=== PATIENT | male | born 1960 | race Caucasian/White ===

== ENCOUNTER 2016-04-24 13:04 | Emergency (ER) | payer BC, OTHER ==
[~2016-04-24] VITALS: Ht 177.8 cm; Wt 108.9 kg
[~2016-04-24 13:04] MED LIST: /HCTZ25TA PO; AMLO5TAB2 PO; ASPI81TA85 PO; BYST10TA PO; CINN500C9 PO; FISH1000 PO; GLUC5TAB3 PO; HUMA100I SC; LEVO750T PO; LORTTAB8 PO; MULTTAB4 PO; PANT40TA2 PO; SENO8.6T9 PO; VIT250TA PO; ZEST2.5T3 PO
[2016-04-24 14:26] LABS: BASO % 0.2 % (0.0-1.0); EOS # 0.1 K/mm3 (0.0-0.50); EOS % 0.8 % (0.0-3.0); LARGE UNSTAINED CELL # 0.2 K/mm3 (0.0-0.4); LARGE UNSTAINED CELL % 1.8 % (0.0-4.0); LYMPH % 21.4 % (24.0-44.0); MEAN CORPUSCULAR HEMOGLOBIN 29.7 pg (27.0-33.0); MEAN CORPUSCULAR HGB CONC 34.8 g/dl (32.0-36.5); MEAN CORPUSCULAR VOLUME 85.2 fl (80.0-96.0); MONO # 0.6 K/mm3 (0.0-0.8); MONO % 6.3 % (0.0-5.0); NEUTROPHILS # 6.3 K/mm3 (1.8-7.7); NEUTROPHILS % 69.6 % (36.0-66.0); PLATELET COUNT, AUTOMATED 203 k/mm3 (150-450); RED CELL DISTRIBUTION WIDTH 11.8 % (11.5-14.5); WHITE BLOOD COUNT 9.1 K/mm3 (4.0-10.0)
[2016-04-24 14:45] LABS: ERYTHROCYTE SEDIMENTATION RATE 41 mm/hr (0-20)
[2016-04-24 14:49] LABS: ANION GAP 13 MEQ/L (8-16); BLOOD UREA NITROGEN 11 MG/DL (7-18); CALCIUM LEVEL 8.9 MG/DL (8.5-10.1); CARBON DIOXIDE LEVEL 26 MEQ/L (21-32); CHLORIDE LEVEL 97 MEQ/L (98-107); CREATININE FOR GFR 1.05 MG/DL (0.70-1.30); GLOMERULAR FILTRATION RATE > 60.0 (>56); GLUCOSE, FASTING 308 MG/DL (70-105); POTASSIUM SERUM 3.6 MEQ/L (3.5-5.1); SODIUM LEVEL 136 MEQ/L (136-145)
[2016-04-24] MEDS ORDERED: ISOVUE-370 76% 100ML VIAL (Q9967) As Ordered ONE (14:53)
--- NOTE | 2016-04-24 15:29 | REP ---
CT study of the pelvis with IV but without oral contrast: History: Possible rectal abscess. Comparison CT abdomen and pelvis study is from February 09, 2012. CT contrast dose: 100 ml of Isovue 370 is administered intravenously by auto injector. CT findings: There is a small umbilical hernia transmitting a small quantity of abdominal fat again noted. No other abdominal wall defect is seen. There is left colonic diverticulosis without CT evidence of diverticulitis. A normal appendix is seen. Small and large intestinal bowel loops included in the imaging field of view are otherwise unremarkable. The urinary bladder is mildly distended at the time of this scan. There is a peripherally enhancing low density fluid collection, irregular in shape, in the midline extending somewhat to the left of midline just posterior to the anal canal in the peroneal region consistent with a perianal abscess. This measures 2.3 cm in greatest medial to lateral dimension by 1.3 cm cranial to caudal. There is one normal-sized lymph node in the perirectal fat. Seminal vesicles and prostate are unremarkable. No bony destructive lesion is seen. There is a small benign bone island in the left first sacral segment. Impression: Small perianal abscess seen, 1.3 x 2.3 cm. A small umbilical hernia transmitting abdominal fat. Otherwise unremarkable. Signed by Lucas Way MD 04/24/2016 05:39 P
[2016-04-24] MEDS ORDERED: AUGM875T27 PO (15:44)
[2016-04-24] MEDS ORDERED: ULTR50TA PO (15:44)
[2016-04-24 15:45] VITALS: BP 136/78
== END 2016-04-24 15:55 | disposition home or self-care (01) ==
LOC: M ED 14:58
DX: K61.0 Anal abscess (principal); K42.9 Umbilical hernia without obstruction or gangrene; I10 Essential (primary) hypertension; E66.9 Obesity, unspecified; Z79.899 Other long term (current) drug therapy
CPT/HCPCS: 36415; 72193; 80048; 85025; 85652; 86140; 99283; Q9967

== ENCOUNTER 2016-06-08 12:24 | Day surgery (SDC) | payer BC, OTHER ==
[~2016-06-08] VITALS: Ht 177.8 cm; Wt 108.9 kg
[~2016-06-08 12:24] MED LIST changes: +AUGM875T27 PO; +ULTR50TA PO
[2016-06-08] MEDS ORDERED: NS 1,000 ML IV ONE (14:30)
[2016-06-08] MEDS ORDERED: MORPHINE 4 MG/ML 1ML SYRINGE IV ONE (14:45)
[2016-06-08] MEDS ORDERED: ONDANSETRON 4MG/2ML VIAL (J2405) IV ONE (14:45)
[2016-06-08] MEDS ORDERED: VANCOMYCIN HCL 1,000 MG, VIAL MATE ADAPTER 1 EACH in D5W 250 ML IV ONE (15:00)
[2016-06-08 15:29] LABS: BASO % 0.4 % (0.0-1.0); EOS % 0.5 % (0.0-3.0); LARGE UNSTAINED CELL # 0.3 K/mm3 (0.0-0.4); LARGE UNSTAINED CELL % 4.2 % (0.0-4.0); LYMPH # 1.6 K/mm3 (1.5-4.5); LYMPH % 18.1 % (24.0-44.0); MEAN CORPUSCULAR HEMOGLOBIN 30.3 pg (27.0-33.0); MEAN CORPUSCULAR HGB CONC 34.9 g/dl (32.0-36.5); MEAN CORPUSCULAR VOLUME 86.8 fl (80.0-96.0); MONO # 0.7 K/mm3 (0.0-0.8); MONO % 9.5 % (0.0-5.0); NEUTROPHILS # 4.8 K/mm3 (1.8-7.7); NEUTROPHILS % 67.3 % (36.0-66.0); PLATELET COUNT, AUTOMATED 161 k/mm3 (150-450); RED CELL DISTRIBUTION WIDTH 12.3 % (11.5-14.5); WHITE BLOOD COUNT 7.2 K/mm3 (4.0-10.0)
[2016-06-08] MEDS ORDERED: MIDAZOLAM INJ 2 MG/2 ML VIAL (J2250) As Ordered ONE (15:36)
[2016-06-08] MEDS ORDERED: fentaNYL 100 MCG/2 ML INJECTION (J3010) As Ordered ONE (15:36)
[2016-06-08] MEDS ORDERED: FISH1000 PO (15:47)
[2016-06-08] MEDS ORDERED: HYDR25TAB PO (15:47)
[2016-06-08] MEDS ORDERED: AUGM875T27 PO (15:47)
[2016-06-08] MEDS ORDERED: PANT40TA2 PO (15:47)
[2016-06-08] MEDS ORDERED: ASCO10003 PO (15:47)
[2016-06-08] MEDS ORDERED: BYST10TA2 PO (15:47)
[2016-06-08] MEDS ORDERED: AMLO5TAB2 PO (15:47)
[2016-06-08] MEDS ORDERED: ASPI1TAB PO (15:47)
[2016-06-08] MEDS ORDERED: CINN500C9 PO (15:47)
[2016-06-08] MEDS ORDERED: HYDR12.55 PO (15:49)
[2016-06-08 15:57] LABS: ANION GAP 7 MEQ/L (8-16); BLOOD UREA NITROGEN 12 MG/DL (7-18); CALCIUM LEVEL 8.4 MG/DL (8.5-10.1); CARBON DIOXIDE LEVEL 28 MEQ/L (21-32); CHLORIDE LEVEL 99 MEQ/L (98-107); GLOMERULAR FILTRATION RATE > 60.0 (>56); GLUCOSE, FASTING 287 MG/DL (70-105); POTASSIUM SERUM 3.7 MEQ/L (3.5-5.1); SODIUM LEVEL 134 MEQ/L (136-145)
[2016-06-08] MEDS ORDERED: BUPIVACAINE/EPIN 0.25% 30 ML VIAL As Ordered ONE (16:15)
[2016-06-08] MEDS ORDERED: LIDOCAINE 2% INJ 100 MG/5 ML SDV (FOR ANES.) As Ordered ONE (16:28)
[2016-06-08] MEDS ORDERED: PROPOFOL 200 MG/20 ML VIAL As Ordered ONE (16:28)
[2016-06-08] MEDS ORDERED: fentaNYL 100 MCG/2 ML INJECTION (J3010) IV PRN (17:00)
[2016-06-08] MEDS ORDERED: ONDANSETRON 4MG/2ML VIAL (J2405) IV PRN (17:00)
[2016-06-08] MEDS ORDERED: LR 1,000 ML IV SCH (17:00)
[2016-06-08] MEDS ORDERED: IBUPROFEN 600 MG TAB PO PRN (17:00)
[2016-06-08] MEDS ORDERED: PERCOCET 5MG/325MG TAB PO PRN (17:00)
[2016-06-08] MEDS ORDERED: METOCLOPRAMIDE INJ 10MG/2ML VIAL (J2765) IV PRN (17:00)
[2016-06-08 17:30] VITALS: BP 166/91
[2016-06-08 18:00] VITALS: BP 132/80
[2016-06-08 18:30] VITALS: BP 134/70
[2016-06-08 19:45] VITALS: BP 132/80
[2016-06-08 21:10] VITALS: BP 139/86
--- NOTE | 2016-06-09 05:35 | HPE ---
DATE OF ADMISSION: 06/08/2016 CHIEF COMPLAINT: Perianal abscess. HISTORY OF PRESENT ILLNESS: The patient is a 55-year-old male who has a history of a perianal abscess in the past which was drained by Dr. Mulligan once a few years ago. This past April he had another recurrence. He had a CAT scan done which confirmed that there is an abscess there. This time he was just treated with antibiotics. He has seen Dr. Gordon in the office for this in the past few weeks who again recommended that he does not need any urgent surgical intervention and to call if there are any problems. He called on Thursday and was started on some antibiotics. However, over the past 48 hours it has gotten persistently more painful with more tender to palpation. Therefore he came into the emergency room (ER) this evening to be evaluated. No active drainage currently. He has only had this drained one time in the past. No recent trauma to the area. No recent trauma to the area. No problems with bowel movements. No fever sweats or chills. No nausea or vomiting. PAST MEDICAL HISTORY: Positive for: 1. Sleep apnea. 2. Hypertension. 3. Gastroesophageal reflux disease (GERD). PAST SURGICAL HISTORY: Incision and drainage (I and D) of perianal abscess. ALLERGIES: None. HOME MEDICATIONS: Please see medical records. SOCIAL HISTORY: Denies drug, alcohol, tobacco abuse. FAMILY HISTORY: Noncontributory. REVIEW OF SYSTEMS: Per positives as stated in the history of present illness (HPI). PHYSICAL EXAMINATION: GENERAL: Awake, alert and oriented times three. No acute stress. VITAL SIGNS: Temperature 99.2, pulse 67, respirations 18, blood pressure 153/92, pulse oximetry 95% on room air. HEENT: Pupils equal, round, react to light and accommodation. HEART: S1, S2, regular rhythm. LUNGS: Clear to auscultation bilaterally . ABDOMEN: Soft, nontender, nondistended. Bowel sounds positive. EXTREMITIES: No clubbing, cyanosis or edema. RECTAL EXAM: There is about a 2 x 3 cm perianal abscess just to the left of the midline. No signs of recent drainage and no active drainage currently. There is however fluctuance overlying the area and a lot of erythema and tenderness to touch. LABORATORY DATA: White count 7.2, hemoglobin 15. ASSESSMENT/PLAN: The patient is a 55-year-old male with a perianal abscess. Recommendation is for incision and drainage in the operating room due to tenderness and location. The risks and benefits of the procedure not limited to but including bleeding, infection, need for further surgery were discussed in detail with the patient. Informed consent was obtained and the procedure was planned. Postoperatively he will be discharged home to follow up me in the office as needed.
--- NOTE | 2016-06-09 08:12 | RO ---
DATE OF PROCEDURE: 06/08/2016 PREOPERATIVE DIAGNOSIS: Perianal abscess. POSTOPERATIVE DIAGNOSIS: Perianal abscess. PROCEDURE: Incision and drainage of perianal abscess. SURGEON: Dr. Mitchell Arnold. PILE DRIVING NOZZLEMAN: None. ANESTHESIA: IV sedation with 10 mL of 1% lidocaine with epi local. COMPLICATIONS: None. INDICATIONS FOR PROCEDURE: The patient is a 55-year-old male who presents with a history of perianal abscess that he has had for many years. He has had it drained in the past by Dr. Mulligan. He has recently had a recurrence in April with positive CT findings that was treated with antibiotics. He came back again last week and Dr. Gordon gave him some antibiotics to take on Thursday. However, it continued to be painful. No active drainage at home, so he came in today for evaluation. The recommendation was to proceed with incision and drainage. Risks include bleeding, infection and possible need for repeat surgery were discussed in detail with the patient and informed consent was obtained and the procedure planned. DESCRIPTION OF PROCEDURE: The patient brought back to operating room three and was placed in prone position. Perianal area was sterilely prepped and draped with Betadine. Time-out was done to confirm proper patient and proper procedure. Following that, lidocaine was injected into the skin and subcutaneous tissue surrounding and overlying the abscess. Next, a 10-blade scalpel was used to make a 1 cm incision right in the center of the abscess. A large amount of purulent drainage was then aspirated out with suction. The wound cavity was then irrigated with saline. The cavity was then probed to be about 4 cm deep. The cavity was then packed with quarter inch iodoform packing, covered with sterile gauze and tape, thus ending the procedure. The patient was then awakened from anesthesia and sent to the post-anesthesia care unit in stable condition. TABBY
== END 2016-06-08 21:40 | disposition home or self-care (01) ==
LOC: M ED 13:48 → M SDC 15:40 → M PED 17:30 → M SDC 21:40
PROVIDERS: ATTEND Surgery
DX: K61.0 Anal abscess (principal); G47.33 Obstructive sleep apnea (adult) (pediatric); I10 Essential (primary) hypertension; K21.9 Gastro-esophageal reflux disease without esophagitis; Z79.899 Other long term (current) drug therapy
CPT/HCPCS: 36415; 46040; 80048; 85025; 86140; 87040; 96374; 96375; 99284; J2250; J2405; J3010; J3370

== ENCOUNTER 2016-10-11 21:07 | Observation (INO) | payer BC, OTHER ==
[~2016-10-11] VITALS: Ht 177.8 cm; Wt 109.1 kg
[~2016-10-11 21:07] MED LIST changes: +ASCO10003 PO; +ASPI1TAB PO; -AUGM875T27 PO; +AUGM875T28 PO; +BYST10TA2 PO; +HYDR12.55 PO; +HYDR25TAB PO; -ULTR50TA PO; +ULTR50TA8 PO
[2016-10-12] MEDS ORDERED: NS 500 ML IV ONE
[2016-10-12] MEDS ORDERED: HYDROmorphone HCL 1 MG/ML SYRINGE (J1170) IV ONE
[2016-10-12 01:10] LABS: BASO % 0.3 % (0.0-1.0); EOS % 0.6 % (0.0-3.0); LARGE UNSTAINED CELL # 0.2 K/mm3 (0.0-0.4); LARGE UNSTAINED CELL % 2.4 % (0.0-4.0); LYMPH # 1.4 K/mm3 (1.5-4.5); LYMPH % 15.6 % (24.0-44.0); MEAN CORPUSCULAR HEMOGLOBIN 30.6 pg (27.0-33.0); MEAN CORPUSCULAR HGB CONC 35.3 g/dl (32.0-36.5); MEAN CORPUSCULAR VOLUME 86.6 fl (80.0-96.0); MONO # 0.6 K/mm3 (0.0-0.8); MONO % 7.1 % (0.0-5.0); NEUTROPHILS # 6.6 K/mm3 (1.8-7.7); PLATELET COUNT, AUTOMATED 209 k/mm3 (150-450); RED CELL DISTRIBUTION WIDTH 12.1 % (11.5-14.5); WHITE BLOOD COUNT 8.9 K/mm3 (4.0-10.0)
[2016-10-12 01:22] LABS: INR 0.98
[2016-10-12 01:32] LABS: ANION GAP 11 MEQ/L (8-16); BLOOD UREA NITROGEN 14 MG/DL (7-18); CARBON DIOXIDE LEVEL 28 MEQ/L (21-32); CHLORIDE LEVEL 99 MEQ/L (98-107); CREATININE FOR GFR 1.08 MG/DL (0.70-1.30); GLOMERULAR FILTRATION RATE > 60.0 (>56); GLUCOSE, FASTING 337 MG/DL (70-105); POTASSIUM SERUM 3.8 MEQ/L (3.5-5.1); SODIUM LEVEL 138 MEQ/L (136-145)
[2016-10-12] MEDS ORDERED: ISOVUE-370 76% 100ML VIAL (Q9967) As Ordered ONE (01:55)
--- NOTE | 2016-10-12 03:20 | REPUSA ---
CLINICAL HISTORY: Abdominal pain. TECHNIQUE: Multiple axial, sagittal and coronal CT images were obtained through the abdomen and pelvi s after administration of intravenous contrast material. COMMENTS: 5.3 x 3.7 cm multi-loculated perianal abscess formation. Abscess extends to the intersphincteric space. Surrounding inflammatory fat stranding. Mildly enlarged bilateral inguinal lymph nodes with the largest measuring 1.3 cm probably reactive. The liver is moderately enlarged with decreased attenuation without mass or defect. There is no intra or extrahepatic biliary ductal dilatation. The spleen is mildly enlarged. The gallbladder is within normal limits. The pancreas is of normal contour and attenuation characteristics. There is no evidenc e of adrenal mass. Both kidneys demonstrate prompt and equal nephrograms. The kidneys are normal in size, shape and conf iguration. There is no evidence of renal or ureteral mass. No renal or ureteral calculi are identifie d. There is no hydroureter or hydronephrosis. No evidence for appendicitis. There is no bowel wall thickening. No evidence for small or large gaudencio l obstruction. There is no evidence of abdominal ascites or lymphadenopathy. There is no evidence of intrinsic or extrinsic bladder mass. There is no pelvic ascites or lymphadeno radames. Images of the lung bases show no evidence of pleural or parenchymal mass. There are no pleural effusi ons. The bony structures are free of lytic or blastic lesions. Multilevel degenerative changes are seen in volving the thoracolumbar spine. Scattered calcifications are seen involving the aorta and major bran ches compatible with atherosclerosis. IMPRESSION: Perianal abscess. Reactive inguinal lymph nodes. Hepatomegaly with fatty liver infiltration. Thank you for your kind referral of this patient.
[2016-10-12] MEDS ORDERED: AMPICILLIN SOD/SULBACTAM SOD 3 GM in D5W MINI-BAG PLUS 100 ML IV ONE (03:30)
[2016-10-12] MEDS ORDERED: metroNIDAZOLE 500 MG in APPROPRIATE DILUENT 1 EA IV ONE (03:30)
[2016-10-12] MEDS: MORPHINE 2 MG/ML 1ML SYRINGE IV PRN ×2 (04:39→09:11)
[2016-10-12] MEDS: ONDANSETRON 4MG/2ML VIAL (J2405) IV PRN ×2 (04:40→09:10)
[2016-10-12 06:00] VITALS: BP 157/77
[2016-10-12] MEDS ORDERED: LIDOCAINE 2% INJ 100 MG/5 ML SDV (FOR ANES.) As Ordered ONE (09:56)
[2016-10-12] MEDS ORDERED: fentaNYL 100 MCG/2 ML INJECTION (J3010) As Ordered ONE (09:56)
[2016-10-12] MEDS ORDERED: MIDAZOLAM INJ 2 MG/2 ML VIAL (J2250) As Ordered ONE (09:56)
[2016-10-12] MEDS ORDERED: PROPOFOL 200 MG/20 ML VIAL As Ordered ONE (09:56)
[2016-10-12] MEDS ORDERED: HumaLOG INSULIN (NovoLOG) PER UNIT As Ordered ONE (10:14)
[2016-10-12] MEDS ORDERED: LIDOCAINE W/EPINEPHRINE 1% 20ML VIAL As Ordered ONE (10:27)
[2016-10-12] MEDS ORDERED: HumaLOG INSULIN (NovoLOG) PER UNIT SC ONE (10:30)
[2016-10-12] MEDS ORDERED: NORC1TAB4 PO (10:47)
[2016-10-12] MEDS ORDERED: BACT800T5 PO (10:47)
[2016-10-12] MEDS ORDERED: LR 1,000 ML IV SCH (11:00)
[2016-10-12] MEDS ORDERED: ONDANSETRON 4MG/2ML VIAL (J2405) IV PRN (11:00)
[2016-10-12] MEDS ORDERED: METOCLOPRAMIDE INJ 10MG/2ML VIAL (J2765) IV PRN (11:00)
[2016-10-12] MEDS ORDERED: fentaNYL 100 MCG/2 ML INJECTION (J3010) IV PRN (11:00)
[2016-10-12] MEDS ORDERED: PERCOCET 5MG/325MG TAB PO PRN ×2 (11:00→13:00)
[2016-10-12 12:21] VITALS: BP 193/95
[2016-10-12] MEDS ORDERED: amLODIPine 5 MG TAB PO ONE (12:45)
[2016-10-12] MEDS ORDERED: hydroCHLOROthiazide 12.5 MG CAPSULE PO ONE (12:45)
[2016-10-12 13:05] VITALS: BP 193/95
--- NOTE | 2016-10-12 13:13 | HPE ---
DATE OF ADMISSION: 10/11/2016 CHIEF COMPLAINT: Rectal pain. HISTORY OF PRESENT ILLNESS: The patient is 55-year-old male who had a perirectal abscess drained by myself on June 08 of this year. He presents with similar findings of perirectal pain that started about 4 days ago. No drainage in his perineal area, just the pain with bowel movements and with sitting. No fevers or chills. No nausea or vomiting. No diarrhea or constipation. He has been having bowel movements without any blood or mucus or purulent fluid in it, but due to the pain and pressure that he had, he assumed he was having a similar findings from before. In the ER he had a CAT scan completed which did confirm a roughly 5 x 4 cm abscess. The ER doc was also able to palpate it on physical exam posteriorly. Therefore, I was called to admit. Currently he denies any trauma to the area. No recent travel. No changes in diet for bowel movements. The only changes is this pain that he has. PAST MEDICAL HISTORY: Sleep apnea. Hypertension. Gastroesophageal reflux disease (GERD). PAST SURGICAL HISTORY: Incision and drainage of perianal abscess times two. ALLERGIES: None. HOME MEDICATIONS: Please see med rec. SOCIAL HISTORY: His denies drug, alcohol, tobacco abuse. FAMILY HISTORY: Noncontributory. REVIEW OF SYSTEMS: Pertinent positives and negatives as started in the history of present illness. PHYSICAL EXAMINATION GENERAL: Patient is alert and oriented times three. No acute distress. VITALS: Temperature 98, pulse 78, respirations 18, blood pressure 193/95, pulse ox 98% on room air. HEENT: Pupils equally round and reactive to light and accommodation. HEART: S1-S2 regular rate and rhythm. LUNGS: Clear to auscultation bilaterally. ABDOMEN: Soft, nontender, nondistended. RECTAL EXAM: There is no visible abscesses, no external hemorrhoids, but he does have a palpable lump posteriorly in the midline that is very tender to touch. No signs of erythema or drainage. EXTREMITIES: No clubbing, cyanosis or edema. LABORATORIES: White count 8.9, hemoglobin 15.6, platelets 209, sodium 138, potassium 3.8, creatinine 1.08. IMAGING: CT abdomen and pelvis shows a 5.3 x 3.7 cm multiloculated perianal abscess extending into the intersphincteric space with surrounding inflammatory fat stranding. There is also mildly enlarged bilateral inguinal lymph nodes up to 1.3 cm that are likely reactive to this. ASSESSMENT/PLAN: The patient is a 55-year-old male with rectal pain and a perirectal abscess. Recommendation at this time is to proceed with incision and drainage in the OR. Risks and benefits of the procedure not limited to, but including bleeding, infection, damage to surrounding structures, and need for further surgery were discussed in detail with the patient. Informed consent was obtained and procedure was planned for first thing this morning. Postoperatively he will be kept on antibiotics. He will be discharged home on antibiotics with some pain meds and he is already aware of how to do the packing changes and dressing changes himself from his previous of procedure. Once he awakes from anesthesia and is stable, tolerating diet. He will be discharged home this afternoon.
--- NOTE | 2016-10-12 13:19 | RO ---
DATE OF PROCEDURE: 10/12/2016 PREOPERATIVE DIAGNOSIS: Perirectal abscess. POSTOPERATIVE DIAGNOSIS: Perirectal abscess. PROCEDURE: Incision and drainage of perirectal abscess. SURGEON: Mitchell Arnold DO AUTO MOTOR MECHANIC: None. ANESTHESIA: IV sedation with 5 mL of local. COMPLICATIONS: None. ESTIMATED BLOOD LOSS: 10 mL. INDICATIONS FOR PROCEDURE: The patient 55-year-old male with a history of multiple perirectal abscesses with two previous drainages who presents with a four day history of rectal pain and a confirmed abscess on physical exam as well as CAT scan. Recommendation was to take him to the operating room for incision and drainage. Risks and benefits of the procedure not limited to but including bleeding, infection, need for further surgery and damage to surrounding structures, were discussed in detail with the patient . Informed consent was obtained and procedure was planned. DESCRIPTION OF PROCEDURE: The patient brought back to operating room three, placed in left lateral decubitus position. Next, the perianal area was sterilely prepped and draped with Betadine. Following that, a time out was done to confirm proper patient and proper procedure. Next, 5 mL of lidocaine was injected into the skin, subcutaneous tissue near the posterior anal area. Once that was completed the needle was used to aspirate and identify the exact location of the abscess. Once that was completed, a 10 blade scalpel was used to make an 8 mm incision through the skin and into the abscess. Once that was done, the abscess cavity was aspirated. All the purulent drainage was removed. It was then irrigated with another 10 mL of lidocaine. Once that it was completed, it was packed with half inch iodoform packing, covered with 4x4 gauze, thus ending procedure. The patient tolerated procedure well and was sent to the postanesthesia care unit (PACU) in stable condition.
[2016-10-12] MEDS ORDERED: NEBIVOLOL 5 MG TAB (BYSTOLIC) PO SCH (13:30)
[2016-10-12 14:21] VITALS: BP 163/81
== END 2016-10-12 16:35 | disposition home or self-care (01) ==
LOC: M ED 21:07 → M ED INP 21:08 → M MS5PR 10-12 05:06
PROVIDERS: ADMIT Surgery; ATTEND Surgery
DX: K61.1 Rectal abscess (principal); I10 Essential (primary) hypertension; E11.9 Type 2 diabetes mellitus without complications; K21.9 Gastro-esophageal reflux disease without esophagitis; G47.30 Sleep apnea, unspecified; F32.9 Major depressive disorder, single episode, unspecified; Z79.82 Long term (current) use of aspirin; Z79.899 Other long term (current) drug therapy
CPT/HCPCS: 46040; 74177; 80048; 85025; 85610; 85730; 96361; 96365; 96375; 96376; 99284; J1170; J2250; J2405; J3010; Q9967

== ENCOUNTER 2016-12-31 13:03 | Emergency (ER) | payer BC, OTHER ==
[~2016-12-31] VITALS: Ht 177.8 cm; Wt 114.5 kg
[~2016-12-31 13:03] MED LIST changes: +BACT800T5 PO; +NORC1TAB4 PO
[2016-12-31] MEDS ORDERED: MORPHINE 4 MG/ML 1ML SYRINGE IV ONE (16:15)
[2016-12-31] MEDS ORDERED: ONDANSETRON 4MG/2ML VIAL (J2405) IV ONE (16:15)
[2016-12-31] MEDS ORDERED: CLINDAMYCIN 900 MG in APPROPRIATE DILUENT 1 EA IV ONE (16:30)
[2016-12-31] MEDS ORDERED: IBUPROFEN 800 MG TAB PO ONE (16:45)
[2016-12-31 17:21] LABS: ALBUMIN 3.4 GM/DL (3.2-5.2); ALBUMIN/GLOBULIN RATIO 0.94 (1.00-1.93); ALKALINE PHOSPHATASE 102 U/L (45-117); ALT/SGPT 36 U/L (12-78); ANION GAP 8 MEQ/L (8-16); AST/SGOT 11 U/L (7-37); BASO % 0.2 % (0.0-1.0); BILIRUBIN,TOTAL 1.4 MG/DL (0.2-1.0); BLOOD UREA NITROGEN 8 MG/DL (7-18); CALCIUM LEVEL 8.8 MG/DL (8.5-10.1); CARBON DIOXIDE LEVEL 29 MEQ/L (21-32); CHLORIDE LEVEL 95 MEQ/L (98-107); CREATININE FOR GFR 1.04 MG/DL (0.70-1.30); GLOMERULAR FILTRATION RATE > 60.0 (>56); GLUCOSE, FASTING 293 MG/DL (70-105); IMMATURE GRANULOCYTE % 0.4 % (0-0); LYMPH # 1.3 10^3/uL (1.5-4.5); LYMPH % 10.8 % (24.0-44.0); MEAN CORPUSCULAR HEMOGLOBIN 29.2 pg (27.0-33.0); MEAN CORPUSCULAR HGB CONC 35.5 g/dl (32.0-36.5); MEAN CORPUSCULAR VOLUME 82.4 fl (80.0-96.0); MONO # 1.3 10^3/uL (0.0-0.8); NEUTROPHILS # 9.5 10^3/uL (1.8-7.7); NEUTROPHILS % 77.6 % (36.0-66.0); PLATELET COUNT, AUTOMATED 190 10^3/uL (150-450); POTASSIUM SERUM 3.7 MEQ/L (3.5-5.1); RED CELL DISTRIBUTION WIDTH 11.4 % (11.5-14.5); SODIUM LEVEL 132 MEQ/L (136-145); WHITE BLOOD COUNT 12.2 10^3/uL (4.0-10.0)
[2016-12-31] MEDS ORDERED: ISOVUE-370 76% 100ML VIAL (Q9967) As Ordered ONE (17:22)
--- NOTE | 2016-12-31 18:03 | REP ---
Clinical: Right medial gluteal pain with history of perirectal abscess. Technique: Axial contrast enhanced images of the pelvis using 100 ml Isovue 370 intravenous contrast material with coronal and sagittal re-formations. Comparison: 10/12/2016. Findings: A heterogeneous, multiloculated perianal/perirectal abscess is identified measuring approximately 5.4 x 4.0 x 5.3 cm and is essentially unchanged when compared to prior examination (images 60 - 80). Surrounding inflammatory changes in the adjacent perirectal fat is identified without significant adenopathy. Visualized portions of the small and large bowel are otherwise unremarkable. Sigmoid diverticula noted without acute diverticulitis. Further evaluation the pelvis demonstrates normal bladder and age appropriate prostate/seminal vesicles. No ascites. Osseous structures are intact. Surrounding musculature including gluteal muscles are normal. Impression: 1. Heterogeneous multiloculated perianal/perirectal abscess measuring roughly 5.4 x 4.0 x 5.3 cm and essentially unchanged compared to 10/12/2016. 2. Sigmoid diverticula without acute diverticulitis. Signed by Ricki Pike MD 12/31/2016 05:54 P
[2016-12-31] MEDS ORDERED: LIDOCAINE W/EPINEPHRINE 1% 20ML VIAL SC ONE (19:45)
[2016-12-31] MEDS ORDERED: AUGM875T28 PO (20:12)
[2016-12-31 20:23] VITALS: BP 122/71
--- NOTE | 2017-01-01 06:17 | RO ---
DATE OF PROCEDURE: 12/31/2016 PREOPERATIVE DIAGNOSIS: Perirectal abscess (recurrent). POSTOPERATIVE DIAGNOSIS: Perirectal abscess (recurrent). PROCEDURE: Incision and drainage of perirectal abscess. SURGEON: Salvador Gordon MD [facility]: ANESTHESIA: Local lidocaine with epinephrine. BRIEF PROCEDURE SUMMARY: The patient was seen in the emergency room, had been examined and CAT scan reviewed and revealed a multiloculated abscess that was on the posterior aspect of the rectum, but seemed to curve around both at the 3-o'clock to almost 9-o'clock position. This was prepped and draped in usual sterile fashion. Local lidocaine mixed with epinephrine was infiltrated into this area and using an 18-gauge as a finder needle placed into the abscess cavity. Then, this was also placed into the 3-o'clock and the 9-o'clock position and I obtained more abscess material. All this was quite liquid and a very thinned out abscess. In any case, a #15 blade was used to create an incision and using blunt dissection through the subcutaneous tissue I entered the abscess pocket, which was relatively deep and once this was entered a great deal of abscess was drained, and palpating both at 3-o'clock and 9-o'clock position, I was able to express additional abscess fluid. A 1/4 inch and gauze was placed into the site and then a dry sterile dressing over the top of this. The patient was discharged home with instructions to followup with me in 2 weeks, remove the dressing tomorrow morning and he was given an antibiotic prescription by the emergency room physician commercial assistant (PA) and off work until next Thursday.
== END 2016-12-31 20:26 | disposition home or self-care (01) ==
LOC: M ED 13:03
DX: K61.1 Rectal abscess (principal); I10 Essential (primary) hypertension; E11.9 Type 2 diabetes mellitus without complications; K57.30 Diverticulosis of large intestine without perforation or abscess without bleeding; G47.30 Sleep apnea, unspecified
CPT/HCPCS: 10061; 72193; 80053; 83605; 85025; 87040; 87070; 87077; 87186; 96374; 96375; 99284; J2405; Q9967

== ENCOUNTER 2018-08-07 18:55 | Emergency (ER) | payer BC, OTHER ==
[~2018-08-07] VITALS: Ht 177.8 cm; Wt 100.0 kg
[~2018-08-07 18:55] MED LIST changes: -/HCTZ25TA PO; +AMLO5TAB6 PO; -ASPI1TAB PO; +ASPI81TA26 PO; +HYDR-3644 PO; -NORC1TAB4 PO; +NORC1TAB7 PO; +PANT40TA3 PO
[2018-08-07] MEDS ORDERED: LIDOCAINE W/EPINEPHRINE 1% 20ML VIAL SC ONE (20:00)
[2018-08-07 20:20] LABS: BASO % 0.4 % (0.0-1.0); EOS # 0.1 10^3/uL (0.0-0.50); EOS % 0.9 % (0.0-3.0); HEMATOCRIT 43.7 % (42.0-52.0); HEMOGLOBIN 15.6 g/dl (13.5-17.5); LYMPH # 2.7 10^3/uL (1.5-4.5); LYMPH % 25.6 % (24.0-44.0); MEAN CORPUSCULAR HEMOGLOBIN 30.2 pg (27.0-33.0); MEAN CORPUSCULAR HGB CONC 35.7 g/dl (32.0-36.5); MEAN CORPUSCULAR VOLUME 84.5 fl (80.0-96.0); NEUTROPHILS # 6.5 10^3/uL (1.8-7.7); NEUTROPHILS % 62.8 % (36.0-66.0); PLATELET COUNT, AUTOMATED 196 10^3/uL (150-450); RED BLOOD COUNT 5.17 10^6/uL (4.30-6.10); WHITE BLOOD COUNT 10.4 10^3/uL (4.0-10.0)
[2018-08-07] MEDS ORDERED: ISOVUE-370 76% 100ML VIAL (Q9967) As Ordered ONE (20:32)
--- NOTE | 2018-08-07 20:55 | REP ---
Clinical: History of perirectal abscess with pain. Technique: Axial contrast enhanced images of the pelvis using 100 ml Isovue 370 intravenous contrast material with coronal and sagittal re-formations. Comparison: 12/31/2016. Findings: Phlegmonous changes in the left perirectal/ischiorectal fossa with surrounding inflammatory changes and small pockets of fluid measures approximately 6.0 x 2.4 x 5.1 cm (images 60-82). No discrete drainable pocket is identified at the time of examination. Visualized portions of the small and large bowel including terminal ileum and appendix are relatively normal. Scattered sigmoid diverticula noted without acute diverticulitis. Normal bladder and age appropriate prostate/seminal vesicles appreciated. No ascites. No free air. No significant adenopathy. 2.5 cm fat containing periumbilical hernia identified. Osseous structures intact without focal abnormalities. Impression: 1. Perirectal inflammatory changes in the left ischiorectal space demonstrates phlegmonous change with small amounts of fluid consistent with forming perirectal abscess. 2. 2.5 cm fat containing periumbilical hernia. 3. Scattered sigmoid diverticula. Electronically Signed by Ricki Pike MD 08/07/2018 08:47 P
[2018-08-07] MEDS ORDERED: MORPHINE 4 MG/ML 1ML VIAL/SYRINGE (J2270) IV ONE (21:45)
[2018-08-07 22:07] VITALS: BP 155/92
[2018-08-07] MEDS ORDERED: AUGMENTIN 875 MG TAB PO ONE (22:30)
[2018-08-07] MEDS ORDERED: NORCO 5/325MG TABLET (BULK FOR ED) PO ONE (22:30)
[2018-08-07] MEDS ORDERED: AUGM875T28 PO (22:32)
[2018-08-07] MEDS ORDERED: NORC1TAB7 PO (22:32)
[2018-08-07 23:34] LABS: ERYTHROCYTE SEDIMENTATION RATE 28 mm/hr (0-20)
--- NOTE | 2018-08-09 13:39 | ED PDOC ---
Post-Departure Follow-Up dr zafar and dr early faxed formal report of ct pelvis for fu Praneeth Tavares MD Aug 09, 2018 13:39
== END 2018-08-07 22:48 | disposition home or self-care (01) ==
LOC: M ED 18:55
DX: K61.1 Rectal abscess (principal); I10 Essential (primary) hypertension; K21.9 Gastro-esophageal reflux disease without esophagitis; Z79.899 Other long term (current) drug therapy; Z79.82 Long term (current) use of aspirin
CPT/HCPCS: 10060; 72193; 85025; 85652; 86140; 87070; 87077; 87186; 96374; 99284; J2270; Q9967

== ENCOUNTER 2019-04-26 11:58 | Emergency (ER) | payer BC, OTHER ==
[~2019-04-26] VITALS: Ht 177.8 cm; Wt 105.3 kg
[2019-04-26] MEDS ORDERED: cefTRIAXone SOD 1 GM in D5W MINI-BAG PLUS 50 ML IV ONE (12:30)
[2019-04-26] MEDS ORDERED: NS 1,000 ML IV SCH (12:30)
[2019-04-26 12:40] LABS: HEMATOCRIT 47.1 % (42.0-52.0); HEMOGLOBIN 16.6 g/dl (13.5-17.5); MEAN CORPUSCULAR HEMOGLOBIN 29.7 pg (27.0-33.0); MEAN CORPUSCULAR HGB CONC 35.2 g/dl (32.0-36.5); MEAN CORPUSCULAR VOLUME 84.3 fl (80.0-96.0); PLATELET COUNT, AUTOMATED 220 10^3/uL (150-450); RED BLOOD COUNT 5.59 10^6/uL (4.30-6.10); WHITE BLOOD COUNT 11.8 10^3/uL (4.0-10.0)
[2019-04-26] MEDS ORDERED: ACETAMINOPHEN 325 MG TAB PO ONE (12:45)
[2019-04-26 12:53] LABS: INR 1.1; PROTHROMBIN TIME 13.9 SECONDS (11.8-14.0)
[2019-04-26 12:59] LABS: BLOOD UREA NITROGEN 13 MG/DL (7-18); CALCIUM LEVEL 8.8 MG/DL (8.5-10.1); CARBON DIOXIDE LEVEL 30 MEQ/L (21-32); CHLORIDE LEVEL 97 MEQ/L (98-107); CREATININE FOR GFR 1.02 MG/DL (0.70-1.30); GLOMERULAR FILTRATION RATE > 60.0 (>56); GLUCOSE, FASTING 333 MG/DL (70-100); SODIUM LEVEL 133 MEQ/L (136-145)
[2019-04-26] MEDS ORDERED: ISOVUE-370 76% 100ML VIAL (Q9967) As Ordered ONE (13:06)
--- NOTE | 2019-04-26 14:11 | REP ---
CT PELVIS WITH IV CONTRAST: CT pelvis performed with intravenous administration of 100 mL Isovue 370. Sagittal and coronal reconstruction images are performed. Comparison is made with multiple prior exams, the most recent of which is 12/31/2016. As seen on several prior studies there is a left perianal abscess. Current measurements are 3.9 x 2.7 cm. There is adjacent streaky inflammatory change. No other fluid collection is seen in the pelvis. No free air is seen. There is extensive sigmoid diverticulosis without acute diverticulitis. Small umbilical hernia contains fat. Urinary bladder is mildly distended and appears grossly unremarkable. IMPRESSION: Left perianal abscess with current measurements 3.9 x 2.7 cm. Electronically Signed by Mitchell Alford MD 04/27/2019 09:10 A
[2019-04-26] MEDS ORDERED: NORC1TAB7 PO (14:29)
[2019-04-26] MEDS ORDERED: AUGM875T28 PO (14:29)
[2019-04-26 15:07] VITALS: BP 144/91
--- NOTE | 2019-04-28 14:13 | ED PDOC ---
Post-Departure Follow-Up randy mcmanus and nneka faxed formal report of ct abd/p for fu Praneeth Tavares MD Apr 28, 2019 14:13
== END 2019-04-26 15:05 | disposition home or self-care (01) ==
LOC: M ED 11:58
DX: K61.0 Anal abscess (principal); R50.9 Fever, unspecified; I10 Essential (primary) hypertension; K21.9 Gastro-esophageal reflux disease without esophagitis; Z79.82 Long term (current) use of aspirin; Z79.899 Other long term (current) drug therapy
CPT/HCPCS: 72193; 80048; 85027; 85610; 96361; 96365; 99284; J0696; Q9967

== ENCOUNTER → 2019-04-27 | Outpatient (CLI) | payer BC, OTHER ==
[~2019-04-27] MED LIST changes: +LIDOCAINE 1% MDV 20ML VIAL As Ordered ONE; +SODIUM BICARBONATE 8.4% INJ 50MEQ 50 ML VIAL As Ordered ONE
[2019-04-27 13:40] VITALS: BP 134/79
--- NOTE | 2019-04-27 16:31 | REP ---
CT-GUIDED PERIANAL ABSCESS DRAIN The procedure was performed under the direct supervision of Dr. Alford. Patient has a history of a 3.9 x 2.7 cm left perianal abscess seen on a previous CT scan performed on 04/26/2019. The risks and benefits of the procedure were explained to the patient and informed consent was obtained. The left perianal abscess was localized using CT guidance. The skin was prepped and draped in a sterile fashion. 1% lidocaine was used as a local anesthetic. Using CT guidance an 8-[place] Skater APDL catheter was inserted using trocar technique. 15 ml of beige/red colored fluid was withdrawn and sent to the lab for analysis. The abscess cavity was flushed with four 5 ml aliquots of sterile saline. The catheter was then removed. The patient tolerated the procedure well and there were no immediate complications. After the appropriate amount of monitored convalescence the patient was discharged from the department. Electronically Signed by MISAEL Junior 04/27/2019 04:20 P Electronically Signed by Mitchell Alford MD 04/27/2019 04:22 P
== END ==
LOC: M IRPRO 10:54
PROVIDERS: ATTEND Surgery
DX: K61.1 Rectal abscess (principal)

== ENCOUNTER → 2019-05-03 | Outpatient (CLI) | payer BC, OTHER ==
--- NOTE | 2019-05-03 11:26 | REP ---
Clinical: History of perirectal abscess. Technique: Axial noncontrast images of the pelvis with coronal and sagittal re-formations. Comparison: 04/26/2019. Findings: A small left perirectal abscess is again identified and essentially unchanged in size and configuration although evaluation is somewhat limited by the lack of intravenous contrast. Visualized portions of the small and large bowel without associated obstruction or acute inflammatory process. Normal terminal ileum, cecum and appendix identified in the right lower quadrant. Sigmoid diverticulosis noted without acute diverticulitis. Stable 3 cm fat containing periumbilical hernia again noted. No ascites. No free air. Normal bladder and age appropriate prostate/seminal vesicles identified. Osseous structures demonstrate stable degenerative changes. Impression: 1. Small left perirectal abscess again suggested and essentially unchanged although evaluation is somewhat limited by the lack of intravenous contrast enhancement. Electronically Signed by Ricki Pike MD 05/03/2019 11:17 A
[2019-05-03 12:35] VITALS: BP 165/96
--- NOTE | 2019-05-03 17:28 | REP ---
CT-GUIDED RECTAL ABSCESS DRAIN The procedure was performed under the direct supervision of . Patient has a history of A small left perirectal abscess seen on a previous CT scan performed earlier today. This abscess was previously drained on 04/27/2019. However, the abscess has returned and the patient is referred for re-drainage with catheter placement. The risks and benefits of the procedure were explained to the patient and informed consent was obtained. The perirectal abscess was localized using CT guidance. The skin was prepped and draped in a sterile fashion. 1% lidocaine was used as a local anesthetic. Using CT guidance an 8-[place] Skater APDL catheter was inserted using trocar technique. 20 ml of proteinaceous fluid was withdrawn and sent to lab for analysis. The abscess cavity was flushed with four 5 ml aliquots of sterile saline. The catheter was affixed to the skin and a sterile dressing was applied. The catheter was connected to a gravity drainage bag. The patient tolerated the procedure well and there were no immediate complications. After the appropriate amount of monitored convalescence the patient was discharged from the department. Electronically Signed by MISAEL Junior 05/03/2019 03:43 P Electronically Signed by Lucas Way MD 05/03/2019 05:19 P
== END ==
LOC: M RADPRO 10:39 → M RAD 10:39
PROVIDERS: ATTEND Surgery
DX: K61.1 Rectal abscess (principal)

== ENCOUNTER 2020-03-19 20:02 | Inpatient (IN) | payer BC, OTHER ==
[~2020-03-19] VITALS: Ht 177.8 cm; Wt 110.0 kg
[~2020-03-19 20:02] MED LIST changes: +AMLO1TAB24 PO; -AMLO5TAB6 PO; +HYDR-3490 PO; -HYDR25TAB PO; -LIDOCAINE 1% MDV 20ML VIAL As Ordered ONE; +PANT40TA29 PO; -PANT40TA3 PO; -SODIUM BICARBONATE 8.4% INJ 50MEQ 50 ML VIAL As Ordered ONE
[2020-03-19] MEDS ORDERED: LOSA50TA88 (20:15)
[2020-03-19] MEDS ORDERED: NS 1,000 ML IV SCH (20:51)
[2020-03-19] MEDS ORDERED: ACETAMINOPHEN 325 MG TAB PO ONE (21:00)
[2020-03-19] MEDS ORDERED: MORPHINE 4 MG/ML 1ML VIAL/SYRINGE (J2270) IV PRN (21:00)
[2020-03-19] MEDS ORDERED: ONDANSETRON 4MG/2ML VIAL IV ONE (21:00)
[2020-03-19 21:33] LABS: BASO % 0.2 % (0.0-1.0); EOS # 0.1 10^3/uL (0.0-0.5); EOS % 0.5 % (0.0-3.0); HEMATOCRIT 40.6 % (42.0-52.0); LYMPH # 1.4 10^3/uL (1.5-5.0); LYMPH % 12.2 % (24.0-44.0); MEAN CORPUSCULAR HGB CONC 34.5 g/dl (32.0-36.5); MEAN CORPUSCULAR VOLUME 84.1 fl (80.0-96.0); MONO # 1.2 10^3/uL (0.0-0.8); MONO % 10.6 % (0.0-5.0); NEUTROPHILS # 8.4 10^3/uL (1.5-8.5); NEUTROPHILS % 75.9 % (36.0-66.0); PLATELET COUNT, AUTOMATED 172 10^3/uL (150-450); RED BLOOD COUNT 4.83 10^6/uL (4.30-6.10)
[2020-03-19 21:34] LABS: WHITE BLOOD COUNT 11.1 10^3/uL (4.0-10.0)
[2020-03-19 21:43] LABS: INR 1.01; PROTHROMBIN TIME 13.5 SECONDS (12.5-14.3)
[2020-03-19 22:04] LABS: ALBUMIN 3.5 GM/DL (3.2-5.2); ALT/SGPT 27 U/L (12-78); BILIRUBIN,DIRECT 0.3 MG/DL (0.0-0.2); BLOOD UREA NITROGEN 14 MG/DL (7-18); CARBON DIOXIDE LEVEL 28 MEQ/L (21-32); CHLORIDE LEVEL 99 MEQ/L (98-107); CREATININE FOR GFR 0.97 MG/DL (0.70-1.30); GLOMERULAR FILTRATION RATE > 60.0 (>56); GLUCOSE, FASTING 253 MG/DL (70-100); LIPASE 73 U/L (73-393); SODIUM LEVEL 135 MEQ/L (136-145); TOTAL PROTEIN 6.7 GM/DL (6.4-8.2)
[2020-03-19] MEDS ORDERED: ISOVUE-370 76% 100ML VIAL As Ordered ONE (22:11)
--- NOTE | 2020-03-19 23:10 | REPVR ---
PROCEDURE INFORMATION: Exam: CT Abdomen And Pelvis With Contrast Exam date and time: 03/19/2020 10:30 PM Age: 59 years old Clinical indication: Abdominal pain; Rectal; Additional info: Rectal abscess TECHNIQUE: Imaging protocol: Computed tomography of the abdomen and pelvis with contrast. Radiation optimization: All CT scans at this facility use at least one of these dose optimization techniques: automated exposure control; mA and/or kV adjustment per patient size (includes targeted exams where dose is matched to clinical indication); or iterative reconstruction. Contrast material: ISOVUE 370; Contrast volume: 100 ml; Contrast route: INTRAVENOUS (IV); COMPARISON: CT Pelvis without contrast 05/03/2019 11:00 AM FINDINGS: Lungs: There is bibasilar atelectasis. The lungs were not fully imaged. Heart: No cardiomegaly or pericardial effusion. Diaphragm: Intact. Liver: The attenuation of the liver is lower compared to the spleen, which can be seen with fatty liver infiltration. No liver lesion is seen. The contour of the liver is smooth. No hepatomegaly is noted. Gallbladder and bile ducts: No calcified gallstones are noted. No gallbladder wall thickening, pericholecystic fluid, or pericholecystic inflammatory changes are identified. No dilation of the bile ducts is noted. No calcified stones are seen in the common bile duct. Pancreas: Normal. No dilation of the main pancreatic duct is noted. There is no inflammatory fat stranding around the pancreas to suggest acute pancreatitis. Spleen: Normal. No splenomegaly is noted. Adrenal glands: Normal. No adrenal mass is noted. Kidneys and ureters: There is a 15 mm simple benign-appearing cyst in the lower pole of the left kidney, for which follow-up is not necessary. The right kidney is unremarkable. No stones are noted in the kidneys or ureters. There is no hydronephrosis or hydroureter. There are no wedge-shaped areas of low attenuation in the kidneys to suggest pyelonephritis. There is no renal abscess or perinephric fluid collection. Stomach and bowel: The stomach and small bowel are unremarkable. There is colonic diverticulosis without evidence for diverticulitis. There is no evidence for a bowel obstruction, colitis, pneumatosis intestinalis, intussusception, volvulus, or perforated viscus. There is thickening of the left lateral wall of the rectum with perirectal and presacral stranding and edema, which is compatible with proctitis. There is a 2.6 cm x 4.5 cm x 4.2 cm rim enhancing left perirectal fluid collection, which is compatible with an abscess. Appendix: Normal. There is no evidence for appendicitis. Intraperitoneal space: Unremarkable. No fluid collection. No free air. Retroperitoneal space: No fluid collection. No mass. Vasculature: The abdominal aorta is patent, normal in caliber, and there is no dissection. The renal arteries, celiac artery, superior mesenteric artery, inferior mesenteric artery, iliac arteries, and common femoral arteries are patent. The portal veins, splenic vein, superior mesenteric vein, inferior mesenteric vein, and renal veins are patent. There are mild atherosclerotic calcifications. Lymph nodes: No enlarged lymph nodes. Urinary bladder: The partially distended urinary bladder is unremarkable. No stones or masses are seen in the bladder. Reproductive: The prostate gland and seminal vesicles are unremarkable. There are vas deferens calcifications. Bones/joints: There is no fracture or dislocation. No suspicious osteolytic or osteoblastic lesion. There are degenerative changes involving the lumbar spine. There is mild osteoarthritis of both hip joints. Soft tissues: There is a small fat containing umbilical hernia. No gas is noted in the perineal soft tissues. IMPRESSION: 1. Proctitis and a 2.6 cm x 4.5 cm x 4.2 cm left perirectal abscess. 2. Colonic diverticulosis without evidence for diverticulitis. 3. Small fat containing umbilical hernia. COMMENTS: Consistent with the [employer]'s Incidental Findings Committee white paper (J Am Diana Radiol 2018): Any incidental renal lesion less than 1 cm or classified as too small to characterize, or any incidental cystic renal lesion characterized as simple-appearing, is likely benign. No follow-up imaging is recommended for these lesions per consensus recommendations based on imaging criteria. Electronically signed by: Hiram Leal On 03/19/2020 23:10:43 PM
[2020-03-19] MEDS ORDERED: AMPICILLIN SOD/SULBACTAM SOD 3 GM in D5W MINI-BAG PLUS 100 ML IV ONE (23:15)
[2020-03-20] MEDS ORDERED: CINN500C2 PO (00:08)
[2020-03-20] MEDS ORDERED: FISH1000 PO (00:08)
[2020-03-20] MEDS ORDERED: ASCO100013 PO (00:08)
[2020-03-20] MEDS ORDERED: IBUP-1764 PO (00:08)
[2020-03-20] MEDS ORDERED: LOSA50TA88 PO (00:08)
[2020-03-20 00:28] LABS: RSV AMPLIFICATION NEGATIVE (NEGATIVE)
[2020-03-20] MEDS ORDERED: IBUPROFEN 800 MG TAB PO PRN (00:30)
[2020-03-20] MEDS ORDERED: PERCOCET 5MG/325MG TAB PO PRN (01:15)
[2020-03-20] MEDS ORDERED: MORPHINE 2 MG/ML 1ML VIAL (J2270) IV ONE (01:15)
[2020-03-20] MEDS: metroNIDAZOLE 500 MG in IV 1 EA IV SCH ×3 (02:23→18:20)
[2020-03-20] MEDS ORDERED: CIPROFLOXACIN IV SCH (03:00)
[2020-03-20 03:20] VITALS: BP 159/88
--- NOTE | 2020-03-20 04:05 | HPEPDOC ---
General Date of Admission Mar 20, 2020 at 00:45 Date of Service: Mar 20, 2020 Chief Complaint The patient is a 59-year-old male admitted with a reason for visit of Pat- rectal abscess. Source: Patient History of Present Illness Mr Dowling is a 59 year old male with history of recurrent perianal abscess who is here for rectal pain and fever. He was feeling well until 2 days ago when he started to have rectal pain and fever. Denies any trauma or know folliculitis in the area. He says that he has these abscess frequently. The first one was in 2012. He feels like it has happened 7 times since then. His last one was about 1.5 years to 2 years ago. had done the drainage and referred him to a physician in [place].He was told that if they were to operate in the area, he could have incontinence. He decided against the procedure. In the ED, CT abd/pelvis demonstrated Proctitis and 2.6cm x 4.5cm x 4.2cm left perirectal abscess. In terms of proctitis, he denies radiation or sex with other men. ED spoke with Dr. Gregg, who recommended NPO and drainage in the morning. Patient was given ampicillin in the ED. Patient will be admitted for pat-rectal abscess. Home Medications Scheduled Amlodipine Besylate (Amlodipine Besylate) 5 Mg Tab, 5 MG PO BID, (Reported) Ascorbic Acid (Vitamin C) 1,000 Mg Tablet, 1,000 MG PO BID, (Reported) Aspirin (Aspirin EC) 81 Mg Tab, 81 MG PO QHS, (Reported) Cinnamon Bark (Cinnamon) 500 Mg Capsule, 500 MG PO BID, (Reported) Hydrochlorothiazide (Hydrochlorothiazide) 12.5 Mg Tab, 12.5 MG PO DAILY, (Reported) Losartan Potassium (Losartan Potassium) 50 Mg Tablet, 50 MG PO DAILY, (Reported) Nebivolol HCl (Bystolic) 10 Mg Tab, 10 MG PO BID, (Reported) [place]-3 Fatty Acids/Fish Oil (Fish Oil 1,000 mg Capsule) 1 Each Capsule, 1,000 MG PO BID, (Reported) Pantoprazole Sodium (Pantoprazole Sodium) 40 Mg Tab, 40 MG PO DAILY, (Reported) Scheduled PRN Ibuprofen (Ibuprofen) 200 Mg Tablet, 800 MG PO TID PRN for PAIN, (Reported) Allergies Coded Allergies: No Known Drug Allergies (Verified Allergy, Unknown, 08/07/18) Past Medical History Medical History 1. Hypertension 2. Sleep apnea on CPAP 3. Diverticulosis 4. Hemorrhoids 5. GERD 6. Fatty liver disease Surgical History 1. Multiple drainage of pat-rectal abscess 2. Repaired deviated septum 3. adenoidectomy Family History Father: . History of cancer, COPD, and hypertension Mother: Alive. History of hypertension Social History * Smoker: Denies Alcohol: Denies Drugs: denies A-FIB/CHADSVASC A-FIB History Current/History of A-Fib/PAF?: No Review of Systems Constitutional: Reports: Fever Eyes: Denies: Vision change ENT: Denies: Sore Throat Skin: Denies: Rash Pulmonary: Denies: Dyspnea, Cough Cardiovascular: Denies: Chest Pain Gastrointestinal: Denies: Nausea, Abdominal Pain Genitourinary: Denies: Dysuria Hematologic: Denies: Bruising Musculoskeletal: Reports: Other Symptoms (rectal pain) Neurological: Denies: Weakness, Numbness Psych: Denies: Anxiety, Depression Physical Examination General Exam: Positive: Alert, Cooperative Eye Exam: Positive: EOMI; Negative: Sclera icteric ENT Exam: Positive: Atraumatic Neck Exam: Positive: Supple Chest Exam: Positive: Clear to auscultation; Negative: Rales, Rhonchi, Wheezing Heart Exam: Positive: Rate Normal, Regular Rhythm Abdomen Exam: Positive: Normal bowel sounds, Soft; Negative: Tenderness Extremity Exam: Negative: Edema Neuro Exam: Positive: Cranial Nerves 3-12 NL Psych Exam: Positive: Mental status NL, Mood NL Vital Signs Vital Signs Date Time Temp Pulse Resp B/P (MAP) Pulse Ox O2 Delivery O2 Flow Rate FiO2 03/20/20 03:00 66 18 105/59 (74) 94 03/20/20 02:28 97.7 03/20/20 02:00 Room Air Laboratory Data Labs 24H Laboratory Tests 2 03/19/20 21:18: Immature Granulocyte % (Auto) 0.6, Neutrophils (%) (Auto) 75.9H, Lymphocytes (%) (Auto) 12.2L, Monocytes (%) (Auto) 10.6H, Eosinophils (%) (Auto) 0.5, Basophils (%) (Auto) 0.2, Neutrophils # (Auto) 8.4, Lymphocytes # (Auto) 1.4L, Monocytes # (Auto) 1.2H, Eosinophils # (Auto) 0.1, Basophils # (Auto) 0.0, Nucleated Red Bl ood Cells % (auto) 0.0, Prothrombin Time 13.5, Prothromb Time International Ratio 1.01, Anion Gap 8, Glomerular Filtration Rate > 60.0, Calcium Level 9.0, Total Bilirubin 1.0, Direct Bilirubin 0.3H, Aspartate Amino Transf (AST/SGOT) 8, Alanine Aminotransferase (ALT/SGPT) 27, Alkaline Phosphatase 99, Total Protein 6.7, Albumin 3.5, Albumin/Globulin Ratio 1.1, Lipase 73 03/19/20 23:17: Coronavirus (COVID-19)(PCR) NEGATIVE, Influenza Type A (RT-PCR) NEGATIVE, Influenza Type B (RT-PCR) NEGATIVE, Respiratory Syncytial Virus (PCR) NEGATIVE CBC/BMP Laboratory Tests 03/19/20 21:18 Assessment/Plan Mr Dowling is a 59 year old male with history of recurrent perianal abscess who is here for rectal pain and fever. He has another episode of perirectal abscess. General surgery consulted by ED. NPO now and planning for drainage in the morning. Otherwise, empirically on ciprofloxacin and metronidazole Plan / VTE VTE Prophylaxis Ordered?: Yes Plan Plan 1. Pat-rectal abscess -Not septic, only meets 1/4 SIRS (leukocytosis not greater than 12) and 0/3 qSOFA -General surgery consulted planning for drainage in the morning -Would recommend obtaining both anaerobic and aerobic cultures from abscess -Empirically on ciprofloxacin and metronidazole 2. Proctitis -Denies sex with men and denies radiation -On IV antibiotics 3. Hypertension -Continue amlodipine, HCTZ, losartan, and nebiolol 4. GERD -Continue pantoprazole 5. DVT ppx -Held lovenox for proceedure, SCD and TEDs BENIGNO ZHOU DO Mar 20, 2020 04:05
[2020-03-20 06:00] VITALS: BP 141/85
[2020-03-20 06:01] LABS: BASO % 0.2 % (0.0-1.0); EOS % 0.3 % (0.0-3.0); HEMATOCRIT 37.9 % (42.0-52.0); LYMPH # 1.1 10^3/uL (1.5-5.0); MEAN CORPUSCULAR HEMOGLOBIN 28.8 pg (27.0-33.0); MEAN CORPUSCULAR HGB CONC 34.3 g/dl (32.0-36.5); MONO # 1.2 10^3/uL (0.0-0.8); MONO % 10.4 % (0.0-5.0); NEUTROPHILS # 8.8 10^3/uL (1.5-8.5); NEUTROPHILS % 78.7 % (36.0-66.0); PLATELET COUNT, AUTOMATED 161 10^3/uL (150-450); RED BLOOD COUNT 4.51 10^6/uL (4.30-6.10)
[2020-03-20 06:07] LABS: WHITE BLOOD COUNT 11.1 10^3/uL (4.0-10.0)
[2020-03-20 06:20] LABS: BLOOD UREA NITROGEN 13 MG/DL (7-18); CALCIUM LEVEL 8.2 MG/DL (8.5-10.1); CARBON DIOXIDE LEVEL 24 MEQ/L (21-32); CHLORIDE LEVEL 102 MEQ/L (98-107); CREATININE FOR GFR 0.84 MG/DL (0.70-1.30); GLOMERULAR FILTRATION RATE > 60.0 (>56); GLUCOSE, FASTING 281 MG/DL (70-100); POTASSIUM SERUM 3.9 MEQ/L (3.5-5.1); SODIUM LEVEL 137 MEQ/L (136-145)
[2020-03-20] MEDS: PANTOPRAZOLE 40MG TAB (PROTONIX) PO SCH (08:38)
[2020-03-20] MEDS: OMEGA-3 1000MG CAPSULE PO SCH ×2 (08:38→20:04)
[2020-03-20] MEDS: ASCORBIC ACID 500 MG TAB PO SCH ×2 (08:39→20:05)
[2020-03-20] MEDS: hydroCHLOROthiazide 12.5 MG CAPSULE PO SCH (08:39)
[2020-03-20] MEDS: NEBIVOLOL 5 MG TAB (BYSTOLIC) PO SCH ×2 (08:41→20:07)
[2020-03-20] MEDS: amLODIPine 5 MG TAB PO SCH ×2 (08:42→20:06)
[2020-03-20] MEDS: LOSARTAN 50MG TABLET PO SCH (08:42)
[2020-03-20] MEDS ORDERED: ONDANSETRON 4MG/2ML VIAL IV PRN (08:45)
--- NOTE | 2020-03-20 08:59 | ECGEPIP ---
[facility] - ED Test Date: 2020-03-19 Pat Name: WERO BROOKS Department: Room: [place] [address] Gender: Male [employer]: PRAVIN : 1960 Requested By: RICHARD DÍAZ Order Number: [id number] Reading MD: Tamika Osborne Measurements Intervals Holiday Rate: 80 P: 21 CO: 144 QRS: 30 QRSD: 102 T: 63 QT: 340 QTc: 392 Interpretive Statements SINUS RHYTHM NONSPECIFIC ST & T-WAVE ABNORMALITY NO PRIOR Electronically Signed on 03-20-2020 8:59:14 EST by Tamika Osborne
[2020-03-20] MEDS ORDERED: ENOXAPARIN 40MG/0.4ML SYRINGE (J1650 PER 10MG) SC SCH (09:00)
[2020-03-20 10:00] VITALS: BP 138/81
--- NOTE | 2020-03-20 10:54 | IPNPDOC ---
Text Note Date of Service The patient was seen on 03/20/20. NOTE Subjective: Patient is a 59-year-old male with a PMHx of HTN, VERENA on CPAP, Fatty liver, Hx of Earlene-rectal abscess, GERD who presented to the emergency room with complaints of rectal pain and fever for 2 days duration. Imaging completed in the emergency room has revealed evidence of the perirectal abscess. Patient was admitted to the hospital service for further evaluation and treatment, and general surgery was called on consultation. Patient was seen and examined at the bedside. Currently patient denies any chest pain, shortness of breath, palpitations, nausea, vomiting, abdominal pain. Patient does report the urge to have a bowel movement. However, his hesitant because of his perirectal pain. Objective: Vitals (See below) General: Lying in bed, appears comfortable, AAOx3 HEENT: NC, AT CVS: RRR, +S1S2 Lungs: Fair air entry b/l, no appreciable wheezing, rhonchi or rales Abdomen: Soft, ND, NT Extremities: - Edema, - Calf tenderness Imaging: CT abdomen / pelvis 03/19: 1. Proctitis and a 2.6 cm x 4.5 cm x 4.2 cm left perirectal abscess. 2. Colonic diverticulosis without evidence for diverticulitis. 3. Small fat containing umbilical hernia. Assessment and plan: Earlene-rectal abscess - Patient still reports pain around the area - Hemodynamically stable and afebrile since admission - Imaging noted - Patient is scheduled for a CT-guided drainage of perirectal abscess today - c/w Ciprofloxacin and Flagyl (Day #2) - c/w Pain control with Percocet - General surgery on consultation; appreciate their input Hypertension - BP moderately controlled; likely 2/2 pain - c/w amlodipine, HCTZ, losartan, and Nebivolol VERENA on CPAP - May allow home CPAP use while inpatient GERD - c/w Pantoprazole DVT prophylaxis - c/w TEDs/Sequentials; s/p Lovenox Disposition: - Awaiting CT guided needle placement VS,Fishbone, I+O VS, Fishbone, I+O Laboratory Tests 03/19/20 21:18 03/20/20 05:35 Vital Signs Date Time Temp Pulse Resp B/P (MAP) Pulse Ox O2 Delivery O2 Flow Rate FiO2 03/20/20 10:00 99.0 75 18 138/81 (100) 94 Room Air I&O- Last 24 Hours up to 6 AM 03/20/20 06:00 Intake Total 100 ml Balance 100 ml IRCKY CABALLERO MD Mar 20, 2020 10:54
[2020-03-20] MEDS ORDERED: ACETAMINOPHEN TAB 650MG DOSE (2X325MG) PO PRN (11:00)
[2020-03-20] MEDS ORDERED: LIDOCAINE 1% MDV 20ML VIAL As Ordered ONE (11:06)
[2020-03-20] MEDS ORDERED: SODIUM BICARBONATE 8.4% INJ 50MEQ 50 ML VIAL As Ordered ONE (11:06)
[2020-03-20] MEDS ORDERED: ISOVUE-370 76% 100ML VIAL As Ordered ONE (11:27)
[2020-03-20] MEDS ORDERED: ONDANSETRON 4MG/2ML VIAL As Ordered ONE (12:01)
--- NOTE | 2020-03-20 12:01 | CR.PDOC ---
General Date of Consultation: Mar 20, [address] Gregg HISTORY OF PRESENT ILLNESS: The patient is a 59-year-old male with history of recurrent perirectal abscess who presented to with rectal pain and fever fo r the past [address] abdomen/pelvis in the emergency department indicated proctitis and 2.6cm x 4.5cm x 4.2cm left perirectal abscess. General surgery consulted for recommendations regarding management of perirectal abscess. ALLERGIES: Please see below. HOME MEDICATIONS: Please see below. PAST MEDICAL HISTORY: Recurrent perirectal abscess Diverticulosis Hemorrhoids GERD Fatty liver disease Hypertension VERENA on CPAP PAST SURGICAL HISTORY: Multiple drainage of perirectal abscess Repair deviated septum Adenoidectomy FAMILY HISTORY: Father: . History of cancer, COPD, and hypertension Mother: Alive. History of hypertension SOCIAL HISTORY: Tobacco use. Denies ETOH: Denies Illicit drug use: Denies REVIEW OF SYSTEMS: As noted in HPI otherwise 10 point review of systems unremarkable. PHYSICAL EXAMINATION: Afebrile, VSS GENERAL APPEARANCE: NAD RESPIRATORY: CTA CARDIOVASCULAR: RRR ABDOMEN: Soft, NT, ND EXTREMITIES: well perfused, no edema LABORATORY DATA: Please see below. ASSESSMENT/PLAN: Recurrent perirectal abscess. IV Cipro/Flagyl as per hospitalist. The patient is reviewed by Dr Gregg. The patient is currently NPO with plan for CT guided percutaneous drainage today. Vital Signs/I&O Vital Signs Date Time Temp Pulse Resp B/P (MAP) Pulse Ox O2 Delivery O2 Flow Rate FiO2 03/20/20 10:00 99.0 75 18 138/81 (100) 94 Room Air I&O- Last 24 Hours up to 6 AM 03/20/20 06:00 Intake Total 100 ml Balance 100 ml Laboratory Data Labs 24H Laboratory Tests 2 03/19/20 21:18: Immature Granulocyte % (Auto) 0.6, Neutrophils (%) (Auto) 75.9H, Lymphocytes (%) (Auto) 12.2L, Monocytes (%) (Auto) 10.6H, Eosinophils (%) (Auto) 0.5, Basophils (%) (Auto) 0.2, Neutrophils # (Auto) 8.4, Lymphocytes # (Auto) 1.4L, Monocytes # (Auto) 1.2H, Eosinophils # (Auto) 0.1, Basophils # (Auto) 0.0, Nucleated Red Blood Cells % (auto) 0.0, Prothrombin Time 13.5, Prothromb Time International Ratio 1.01, Anion Gap 8, Glomerular Filtration Rate > 60.0, Calcium Level 9.0, Total Bilirubin 1.0, Direct Bilirubin 0.3H, Aspartate Amino Transf (AST/SGOT) 8, Alanine Aminotransferase (ALT/SGPT) 27, Alkaline Phosphatase 99, Total Protein 6.7, Albumin 3.5, Albumin/Globulin Ratio 1.1, Lipase 73 03/19/20 23:17: Coronavirus (COVID-19)(PCR) NEGATIVE, Influenza Type A (RT-PCR) NEGATIVE, Influenza Type B (RT-PCR) NEGATIVE, Respiratory Syncytial Virus (PCR) NEGATIVE 03/20/20 05:35: Immature Granulocyte % (Auto) 0.4, Neutrophils (%) (Auto) 78.7H, Lymphocytes (%) (Auto) 10.0L, Monocytes (%) (Auto) 10.4H, Eosinophils (%) (Auto) 0.3, Basophils (%) (Auto) 0.2, Neutrophils # (Auto) 8.8H, Lymphocytes # (Auto) 1.1L, Monocytes # (Auto) 1.2H, Eosinophils # (Auto) 0.0, Basophils # (Auto) 0.0, Nucleated Red Blood Cells % (auto) 0.0, Anion Gap 11, Glomerular Filtration Rate > 60.0, Calcium Level 8.2L, Syphilis Serology NONREACTIVE CBC/BMP Laboratory Tests 03/19/20 21:18 03/20/20 05:35 Allergies Coded Allergies: No Known Drug Allergies (Verified Allergy, Unknown, 08/07/18) Home Medications Scheduled Amlodipine Besylate (Amlodipine Besylate) 5 Mg Tab, 5 MG PO BID, (Reported) Ascorbic Acid (Vitamin C) 1,000 Mg Tablet, 1,000 MG PO BID, (Reported) Aspirin (Aspirin EC) 81 Mg Tab, 81 MG PO QHS, (Reported) Cinnamon Bark (Cinnamon) 500 Mg Capsule, 500 MG PO BID, (Reported) Hydrochlorothiazide (Hydrochlorothiazide) 12.5 Mg Tab, 12.5 MG PO DAILY, (Reported) Losartan Potassium (Losartan Potassium) 50 Mg Tablet, 50 MG PO DAILY, (Reported) Nebivolol HCl (Bystolic) 10 Mg Tab, 10 MG PO BID, (Reported) [place]-3 Fatty Acids/Fish Oil (Fish Oil 1,000 mg Capsule) 1 Each Capsule, 1,000 MG PO BID, (Reported) Pantoprazole Sodium (Pantoprazole Sodium) 40 Mg Tab, 40 MG PO DAILY, (Reported) Scheduled PRN Ibuprofen (Ibuprofen) 200 Mg Tablet, 800 MG PO TID PRN for PAIN, (Reported) Sruthi Bone Mar 20, 2020 10:55
[2020-03-20] MEDS ORDERED: ONDANSETRON 4MG/2ML VIAL IV ONE (13:00)
[2020-03-20 14:00] VITALS: BP 134/80
[2020-03-20] MEDS: CIPROFLOXACIN 400 MG in IV 1 EA IV SCH (14:39)
--- NOTE | 2020-03-20 17:12 | REP ---
INDICATION: left perirectal abscess. COMPARISON: None. TECHNIQUE: The procedure is performed by Charlene Farmer [facility], under the direct supervision of . The risks and benefits of the procedure were explained to the patient and informed consent was obtained both orally and written. Directly prior to the start of the procedure, a formal timeout was done in the exam room. The perirectal abscess was localized using CT guidance. Skin was prepped and draped in the usual sterile fashion. Ten ml of buffered lidocaine was used as a local anesthetic. FINDINGS: Using CT guidance an 8 [place] pigtail catheter was inserted and advanced into the perirectal abscess using trocar technique. 24 mL of bloody pus was aspirated. The pigtail catheter was sutured into place, a sterile dressing was applied, and a drainage bag was attached. CT images obtained directly after the biopsy show the tube to be in good placement.. IMPRESSION: CT-guided 8 [place] pigtail catheter placement. <Electronically signed by Charlene Farmer > 03/20/20 1632 <Electronically signed by Reza Way > 03/20/20 [id number]
[2020-03-20 18:00] VITALS: BP 143/83
[2020-03-20] MEDS ORDERED: ASPIRIN 81 MG ENTERIC TAB PO SCH (21:00)
[2020-03-20 22:00] VITALS: BP_SYST 145; BP_DIAS 4; BP_DIAS 84
[2020-03-21] MEDS: metroNIDAZOLE 500 MG in IV 1 EA IV SCH ×2 (01:34→10:12)
[2020-03-21 02:00] VITALS: BP 131/78
[2020-03-21] MEDS: CIPROFLOXACIN 400 MG in IV 1 EA IV SCH (03:02)
[2020-03-21 06:00] VITALS: BP 141/82
[2020-03-21 06:02] LABS: BASO % 0.2 % (0.0-1.0); EOS % 0.4 % (0.0-3.0); HEMATOCRIT 37.4 % (42.0-52.0); LYMPH # 1.8 10^3/uL (1.5-5.0); LYMPH % 19.6 % (24.0-44.0); MEAN CORPUSCULAR HEMOGLOBIN 29.6 pg (27.0-33.0); MEAN CORPUSCULAR HGB CONC 34.8 g/dl (32.0-36.5); MEAN CORPUSCULAR VOLUME 85.2 fl (80.0-96.0); MONO # 0.9 10^3/uL (0.0-0.8); MONO % 9.8 % (0.0-5.0); NEUTROPHILS # 6.3 10^3/uL (1.5-8.5); NEUTROPHILS % 69.5 % (36.0-66.0); PLATELET COUNT, AUTOMATED 169 10^3/uL (150-450); RED BLOOD COUNT 4.39 10^6/uL (4.30-6.10); WHITE BLOOD COUNT 9.1 10^3/uL (4.0-10.0)
[2020-03-21 06:19] LABS: BLOOD UREA NITROGEN 11 MG/DL (7-18); CARBON DIOXIDE LEVEL 26 MEQ/L (21-32); CHLORIDE LEVEL 103 MEQ/L (98-107); CREATININE FOR GFR 0.91 MG/DL (0.70-1.30); GLOMERULAR FILTRATION RATE > 60.0 (>56); GLUCOSE, FASTING 267 MG/DL (70-100); POTASSIUM SERUM 3.7 MEQ/L (3.5-5.1); SODIUM LEVEL 138 MEQ/L (136-145)
[2020-03-21] MEDS ORDERED: FLAG500T PO (07:34)
[2020-03-21] MEDS ORDERED: CIPR-249 PO (07:34)
[2020-03-21] MEDS: NEBIVOLOL 5 MG TAB (BYSTOLIC) PO SCH (07:58)
[2020-03-21 07:59] VITALS: BP 140/82
[2020-03-21] MEDS: ASCORBIC ACID 500 MG TAB PO SCH (07:59)
[2020-03-21] MEDS: OMEGA-3 1000MG CAPSULE PO SCH (07:59)
[2020-03-21] MEDS: hydroCHLOROthiazide 12.5 MG CAPSULE PO SCH (07:59)
[2020-03-21] MEDS: LOSARTAN 50MG TABLET PO SCH (07:59)
[2020-03-21] MEDS: amLODIPine 5 MG TAB PO SCH (07:59)
[2020-03-21] MEDS: PANTOPRAZOLE 40MG TAB (PROTONIX) PO SCH (08:00)
--- NOTE | 2020-03-21 09:53 | DS.PDOC ---
Discharge Summary General Date of Admission Mar 20, 2020 at 00:45 Date of Discharge 03/21/2020 Discharge Summary PROCEDURES PERFORMED DURING STAY: [None]. ADMITTING DIAGNOSES / DISCHARGE DIAGNOSES: s/p Earlene-rectal abscess Hypertension VERENA on CPAP GERD DVT prophylaxis COMPLICATIONS/CHIEF COMPLAINT: Rectal pain / Fevers HISTORY OF PRESENT ILLNESS: Patient is a 59-year-old male with a PMHx of HTN, VERENA on CPAP, Fatty liver, Hx of Earlene-rectal abscess, GERD who presented to the emergency room with complaints of rectal pain and fever for 2 days duration. Imaging completed in the emergency room has revealed evidence of the perirectal abscess. Patient was admitted to the hospital service for further evaluation and treatment, and general surgery was called on consultation. HOSPITAL COURSE: s/p Earlene-rectal abscess - Patient reports that his rectal pain has essentially resolved - Remains hemodynamically stable / No fevers in the last 48 hours - Imaging noted - s/p CT-guided drainage of perirectal abscess on 03/20; drain to remain in place on discharge - c/w Ciprofloxacin and Flagyl (Antibiotic day #3) - Will continue antibiotic course as an outpatient - c/w Pain control with Percocet - General surgery on consultation; case discussed - Will have outpatient follow-up with primary care provider, and general surgery within the next 7 days Hypertension - BP well controlled - c/w amlodipine, HCTZ, losartan, and Nebivolol VERENA on CPAP - May allow home CPAP use while inpatient GERD - c/w Pantoprazole DVT prophylaxis - c/w TEDs/Sequentials; s/p Lovenox DISCHARGE MEDICATIONS: Please see below. ALLERGIES: Please see below. PHYSICAL EXAMINATION ON DISCHARGE: Vitals (See below) General: Patient is laying in bed, appears to be comfortable, not in any acute distress, awake, alert and oriented 3 HEENT: NC, AT CVS: +S1S2 Lungs: Air entry is fair bilaterally without any auscultated rhonchi, crackles or wheezing Abdomen: Soft, nondistended and nontender Extremities: No evidence of edema, - Calf tenderness LABORATORY DATA: Please see below. IMAGING: CT abdomen / pelvis 03/19: 1. Proctitis and a 2.6 cm x 4.5 cm x 4.2 cm left perirectal abscess. 2. Colonic diverticulosis without evidence for diverticulitis. 3. Small fat containing umbilical hernia. ACTIVITY: [As tolerated]. DISCHARGE PLAN: Please follow-up with primary care provider, and general surgery within the next 7 days Remain compliant with treatment plan and medications Return to the ER if you experience any problems DISPOSITION: Home DISCHARGE CONDITION: [Stable]. TIME SPENT ON DISCHARGE: 35 minutes. Vital Signs/I&Os Vital Signs Date Time Temp Pulse Resp B/P (MAP) Pulse Ox O2 Delivery O2 Flow Rate FiO2 03/21/20 07:59 68 140/82 03/21/20 06:00 98.0 20 96 NIPPV (BIPAP/CPAP) I&O- Last 24 Hours up to 6 AM 03/21/20 06:00 Intake Total 1420 ml Balance 1420 ml Laboratory Data Labs 24H Laboratory Tests 2 03/21/20 05:34: Immature Granulocyte % (Auto) 0.5, Neutrophils (%) (Auto) 69.5H, Lymphocytes (%) (Auto) 19.6L, Monocytes (%) (Auto) 9.8H, Eosinophils (%) (Auto) 0.4, Basophils (%) (Auto) 0.2, Neutrophils # (Auto) 6.3, Lymphocytes # (Auto) 1.8, Monocytes # (Auto) 0.9H, Eosinophils # (Auto) 0.0, Basophils # (Auto) 0.0, Nucleated Red Blood Cells % (auto) 0.0, Anion Gap 9, Glomerular Filtration Rate > 60.0, Calcium Level 8.0L CBC/BMP Laboratory Tests 03/21/20 05:34 Microbiology Microbiology 03/20/20 Gram Stain - Final, Resulted 03/20/20 Abscess Culture, Resulted Pending 03/20/20 Anaerobic Culture, Received Pending Discharge Medications Scheduled Amlodipine Besylate (Amlodipine Besylate) 5 Mg Tab, 5 MG PO BID, (Reported) Ascorbic Acid (Vitamin C) 1,000 Mg Tablet, 1,000 MG PO BID, (Reported) Aspirin (Aspirin EC) 81 Mg Tab, 81 MG PO QHS, (Reported) Cinnamon Bark (Cinnamon) 500 Mg Capsule, 500 MG PO BID, (Reported) Ciprofloxacin HCl (Cipro) 500 Mg Tablet, 1 TAB PO BID Hydrochlorothiazide (Hydrochlorothiazide) 12.5 Mg Tab, 12.5 MG PO DAILY, (Reported) Losartan Potassium (Losartan Potassium) 50 Mg Tablet, 50 MG PO DAILY, (Reported) Metronidazole (Flagyl) 500 Mg Tablet, 500 MG PO TID Nebivolol HCl (Bystolic) 10 Mg Tab, 10 MG PO BID, (Reported) [place]-3 Fatty Acids/Fish Oil (Fish Oil 1,000 mg Capsule) 1 Each Capsule, 1,000 MG PO BID, (Reported) Pantoprazole Sodium (Pantoprazole Sodium) 40 Mg Tab, 40 MG PO DAILY, (Reported) Scheduled PRN Ibuprofen (Ibuprofen) 200 Mg Tablet, 800 MG PO TID PRN for PAIN, (Reported) Allergies Coded Allergies: No Known Drug Allergies (Verified Allergy, Unknown, 08/07/18) RICKY CABALLERO MD Mar 21, 2020 09:53
[2020-03-21 10:00] VITALS: BP 137/78
== END 2020-03-21 12:45 | disposition home or self-care (01) | DRG 223 ==
LOC: M ED 20:02 → M ED INP 03-20 00:45 → M MSPAV 03-20 03:14
PROVIDERS: ADMIT Internal Medicine; ATTEND Internal Medicine
PROC: 0D9P4ZZ Drainage of Rectum, Percutaneous Endoscopic Approach (ICD-10-PCS; principal; 2020-03-20 12:00)
DX: K61.1 Rectal abscess (principal); I10 Essential (primary) hypertension; K76.0 Fatty (change of) liver, not elsewhere classified; G47.33 Obstructive sleep apnea (adult) (pediatric); K21.9 Gastro-esophageal reflux disease without esophagitis; Z79.82 Long term (current) use of aspirin; Z79.899 Other long term (current) drug therapy; K57.30 Diverticulosis of large intestine without perforation or abscess without bleeding; K64.8 Other hemorrhoids

== ENCOUNTER 2020-06-10 14:40 | Inpatient (IN) | payer BC, OTHER ==
[~2020-06-10] VITALS: Ht 172.7 cm; Wt 103.9 kg
[~2020-06-10 14:40] MED LIST changes: +ASCO100013 PO; +CINN500C2 PO; +CIPR-249 PO; +COLA100C5 PO; +FLAG500T PO; +IBUP-1764 PO; +LOSA50TA88; +LOSA50TA88 PO; +ONDA4TAB6 PO; +PERC5TAB12 PO
[2020-06-10] MEDS ORDERED: METOCLOPRAMIDE INJ 10MG/2ML VIAL (J2765 PER 1) IV ONE (17:50)
--- NOTE | 2020-06-10 18:32 | REP ---
INDICATION: constipation, decreased bowel sounds COMPARISON: None. TECHNIQUE: Upright view of the chest with supine and upright views of the abdomen and pelvis. FINDINGS: Frontal upright view of the chest demonstrates no acute cardiopulmonary process or free air below the diaphragm to suspect pneumoperitoneum. Supine and upright views of the abdomen and pelvis demonstrate nonspecific bowel gas pattern without obstruction or perforation. No organomegaly. No abnormal calcifications. Skeletal structures normal for age. IMPRESSION: Nonspecific bowel gas pattern. <Electronically signed by Ricki Pike > 06/10/20 [id number]
[2020-06-10 18:40] LABS: BASO # 0.1 10^3/uL (0.0-0.2); BASO % 0.3 % (0.0-1.0); EOS % 0.1 % (0.0-3.0); HEMATOCRIT 44.5 % (42.0-52.0); HEMOGLOBIN 15.1 g/dl (13.5-17.5); LYMPH # 1.4 10^3/uL (1.5-5.0); LYMPH % 9.6 % (24.0-44.0); MEAN CORPUSCULAR HEMOGLOBIN 29.4 pg (27.0-33.0); MEAN CORPUSCULAR HGB CONC 33.9 g/dl (32.0-36.5); MEAN CORPUSCULAR VOLUME 86.7 fl (80.0-96.0); MONO # 1.5 10^3/uL (0.0-0.8); MONO % 9.8 % (2.0-8.0); NEUTROPHILS # 11.8 10^3/uL (1.5-8.5); NEUTROPHILS % 79.3 % (36.0-66.0); RED BLOOD COUNT 5.13 10^6/uL (4.30-6.10)
[2020-06-10] MEDS ORDERED: MORPHINE 2 MG/ML 1ML VIAL (J2270) IV ONE (19:05)
[2020-06-10] MEDS ORDERED: ISOVUE-370 76% 100ML VIAL As Ordered ONE (19:05)
[2020-06-10 19:12] LABS: ALBUMIN 3.2 GM/DL (3.2-5.2); BILIRUBIN,DIRECT 0.2 MG/DL (0.0-0.2); BILIRUBIN,TOTAL 0.8 MG/DL (0.2-1.0); C REACTIVE PROTEIN QUANTITATIV 17.5 MG/DL (0.00-0.30); TOTAL PROTEIN 6.9 GM/DL (6.4-8.2)
[2020-06-10 19:35] LABS: WHITE BLOOD COUNT 14.9 10^3/uL (4.0-10.0)
[2020-06-10 19:41] LABS: ERYTHROCYTE SEDIMENTATION RATE 52 mm/hr (0-20)
--- NOTE | 2020-06-10 20:01 | REPVR ---
PROCEDURE INFORMATION: Exam: CT Abdomen And Pelvis With Contrast Exam date and time: 06/10/2020 7:04 PM Age: 59 years old Clinical indication: Other: Perirectal abscess, concern for tracking, decreased bowel so TECHNIQUE: Imaging protocol: Computed tomography of the abdomen and pelvis with contrast. Radiation optimization: All CT scans at this facility use at least one of these dose optimization techniques: automated exposure control; mA and/or kV adjustment per patient size (includes targeted exams where dose is matched to clinical indication); or iterative reconstruction. Contrast material: ISOVUE 370; Contrast volume: 100 ml; Contrast route: INTRAVENOUS (IV); COMPARISON: CT ABD/PEL W/IV CONTRAST ONLY 03/19/2020 10:17 PM FINDINGS: Liver: There is a diffuse decrease in hepatic parenchymal density, consistent with steatosis. Gallbladder and bile ducts: Normal. No calcified stones. No ductal dilation. Pancreas: Normal. No ductal dilation. Spleen: Normal. No splenomegaly. Adrenal glands: Normal. No mass. Kidneys and ureters: Simple cyst left kidney measures 1.3 cm. No follow-up suggested. Finding is stable in comparison to the prior study. Stomach and bowel: Diffuse asymmetric thickening of the left lateral wall of the rectum. 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 Clinical correlation to exclude neoplasm suggested. Appendix: No evidence of appendicitis. Intraperitoneal space: Unremarkable. No free air. No significant fluid collection. Vasculature: The aortoiliac vessels demonstrate mild atherosclerotic calcification. Lymph nodes: Unremarkable. No enlarged lymph nodes. Urinary bladder: Unremarkable as visualized. Reproductive: Unremarkable as visualized. Bones/joints: Mild central spinal stenosis L3-L4 and moderate central spinal stenosis L4-L5. Well-defined sclerotic focus in the left sacral ala stable in appearance. Soft tissues: There is a small umbilical hernia. There is no evidence of incarceration. Large perirectal abscess demonstrated in the inferior mesorectum extending inferiorly and is now located in both the right and left lateral aspects of the rectum in anorectal junction. Maximum dimensions of the multilocular abscess collection are 7.7 x 6.1 x 6 cm. Abscesses tracts more inferiorly along the medial wall of both buttocks, left greater than right. IMPRESSION: 1. There is a diffuse decrease in hepatic parenchymal density, consistent with steatosis. 2. Diffuse asymmetric thickening of the left lateral wall of the rectum. 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 Clinical correlation to exclude neoplasm suggested. 3. Increased size of a multilocular perirectal abscess demonstrated on both the right and left sides of the rectum and tracking more inferiorly along the medial buttocks left greater than right. COMMENTS: Consistent with the [employer]'s Incidental Findings Committee white paper (J Am Diana Radiol 2018): Any incidental renal lesion less than 1 cm or classified as too small to characterize, or any incidental cystic renal lesion characterized as simple-appearing, is likely benign. No follow-up imaging is recommended for these lesions per consensus recommendations based on imaging criteria. Electronically signed by: Emilio Rothman On 06/10/2020 20:01:08 PM
[2020-06-10] MEDS ORDERED: AMPICILLIN SOD/SULBACTAM SOD 3 GM in D5W MINI-BAG PLUS 100 ML IV ONE (20:15)
[2020-06-10] MEDS ORDERED: MAALOX 30 ML SUSP *UDC PO PRN (20:40)
[2020-06-10] MEDS ORDERED: ACETAMINOPHEN TAB 650MG DOSE (2X325MG) PO PRN (20:40)
[2020-06-10] MEDS ORDERED: ONDA4TAB6 PO (20:45)
[2020-06-10] MEDS ORDERED: FLAG500T PO (20:45)
[2020-06-10] MEDS ORDERED: CIPR-249 PO (20:45)
[2020-06-10] MEDS ORDERED: PERCOCET PO (20:45)
[2020-06-10] MEDS ORDERED: DOK100TA2 PO (20:45)
[2020-06-10] MEDS ORDERED: FARX1TAB3 PO (20:45)
--- NOTE | 2020-06-10 20:49 | HPEPDOC ---
[facility] Medical History & Physical Date of Admission June 10, 2020 Date of Service: June 10, 2020 History and Physical CHIEF COMPLAINT: rectal pain HISTORY OF PRESENT ILLNESS: 59 yo M with a PMhx of HTN, VERENA on CPAP, DM2, recurr ent perirectal abscesses, being followed by Dr. Arnold. He was last seen in [facility] ER on 06/07/20 for developing perirectal infection, and was discharged home with ciprofloxacin and metronidazole and was seen in Dr. Arnold clinic on 06/08. He was instructed to return to ER if pain worsens. He present today with 10/10 perirectal pain and constipation with subjective chills. He states he feels otherwise well, but is unable to pass stool for pain, and is unable to sit upright. He was afebrile on arrival, with a WBC of 14.9, ESR 52, CRp 17.5. CT abdomen pelvis w IV contras showed multilocular perirectal abscess to left and right of rectum, along with thickenin of left lateral wall of rectum with conc joe for possible neoplasm. Dr. Arnold was consulted from the ER, recommended starting unasyn, and plan for IR CT guided drainage of perirectal abscess. PAST MEDICAL HISTORY: HTN VERENA recurrent perirectal abscess DM2 PAST SURGICAL HISTORY: multiple CT guided drainage of perirectal abcess Repaired deviated septum adenoidectomy SOCIAL HISTORY: denies smoking, etoh use, illicit substance use FAMILY HISTORY: no pertinent history identified, reviewed with patient. ALLERGIES: Please see below. REVIEW OF SYSTEMS: 10 point review of systems was completed, relevant findings are noted in the HPI HOME MEDICATIONS: Please see below. PHYSICAL EXAMINATION: VITAL SIGNS:please see below GENERAL APPEARANCE: non toxic appearance, uncomfortable, lying on left side. HEENT: PERRLA, EOMI. CARDIOVASCULAR: RRR, normal S1, S2. LUNGS: CTAB, no wheeze, rales. good inspiratory effort. ABDOMEN: soft, obese, non distended, non tender to palpation, no organomegaly. Rectal: no anal fissures, external hemorrhoids. Profound swelling, erythema and fluctuance surround anal anal area bilaterally. Painful to palpation. No blood in rectal vault. Boggy prostate. MUSCULOSKELETAL: normal ROM, no joint deformity. EXTREMITIES: no edema, no cyanosis. NEUROLOGICAL: no focal neuro deficits, moving all 4 extremities, CN2-12 intact. PSYCHIATRIC: calm, pleasant, appropriate. LABORATORY DATA: See below. IMAGING: CT abdo pelvis with IV contrast (06/10/20): 1. There is a diffuse decrease in hepatic parenchymal density, consistent with steatosis. 2. Diffuse asymmetric thickening of the left lateral wall of the rectum. 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 Clinical correlation to exclude neoplasm suggested. 3. Increased size of a multilocular perirectal abscess demonstrated on both the right and left sides of the rectum and tracking more inferiorly along the medial buttocks left greater than right. Abdominal XR (06/10/20): FINDINGS: Frontal upright view of the chest demonstrates no acute cardiopulmonary process or free air below the diaphragm to suspect pneumoperitoneum. Supine and upright views of the abdomen and pelvis demonstrate nonspecific bowel gas pattern without obstruction or perforation. No organomegaly. No abnormal calcifications. Skeletal structures normal for age. IMPRESSION: Nonspecific bowel gas pattern. MICROBIOLOGY: Please see below. ASSESSMENT: 59 yo M with a PMhx of HTN, VERENA on CPAP, presented with recurrent perirectal abscess. Admitted for IV antibiotics, surgery eval and IR consult for CT guided drainage. . PLAN: Perirectal abscess - Afebrile. WBC 14.9. Patient on ciprofloxacin and flagyl started on ER visit on 06/07/20 - CT findings reviewed as above. Multilocular perirectal abscess demonstrated on both the right and left sides of the rectum. Concern for asymmetric thickening of L wall of rectum, hx of proctatitis - obtain two sets blood cultures - Dr. Arnold consulted from ER, recommendations are greatly appreciated - started patient on Unasyn - IR consult for CT guided drainage placed - NPO in case of procedure in AM. IV fluids started. - pain control with morphine, percocet - patient will require colonoscopy in near future to investigate CT findings for neoplasm, possible fistula VERENA - continue home CPAP HTN - c/w home medications: nabivolol, amlodipine, losartan, HCTZ DM2 - farxiga on med rec - last a1c in chart > 12 in 2011 - check A1c, lipid panel - ISS and FSBS AC and HS GERD - pantoprazole DVT ppx: SCDs, holding lovenox prior to procedure. Code status: full code Vital Signs Vital Signs Date Time Temp Pulse Resp B/P (MAP) Pulse Ox O2 Delivery O2 Flow Rate FiO2 06/10/20 19:23 18 06/10/20 17:24 06/10/20 14:40 97.7 77 96 Room Air Laboratory Data Labs 24H Laboratory Tests 2 06/10/20 18:25: Immature Granulocyte % (Auto) 0.9, Neutrophils (%) (Auto) 79.3H, Lymphocytes (%) (Auto) 9.6L, Monocytes (%) (Auto) 9.8H, Eosinophils (%) (Auto) 0.1, Basophils (%) (Auto) 0.3, Neutrophils # (Auto) 11.8H, Lymphocytes # (Auto) 1.4L, Monocytes # (Auto) 1.5H, Eosinophils # (Auto) 0.0, Basophils # (Auto) 0.1, Nucleated Red Blood Cells % (auto) 0.0, Erythrocyte Sedimentation Rate 52H, Lactic Acid Level 1.4, Total Bilirubin 0.8, Direct Bilirubin 0.2, Aspartate Amino Transf (AST/SGOT) 18, Alanine Aminotransferase (ALT/SGPT) 23, Alkaline Phosphatase 98, C-Reactive Protein, Quantitative 17.50H, Total Protein 6.9, Albumin 3.2, Albumin/Globulin Ratio 0.9 06/10/20 18:36: POC Glucose (Misc Panel) 162H, POC Sodium (Misc Panel) 137, POC Potassium (Misc Panel) 4.1, POC Chloride (Misc Panel) 99, POC Total CO2 (Misc Panel) 31.0H, POC Blood Urea Nitrogen (Misc Panel 11, POC Ionized Calcium (Misc Panel) 4.5, POC Creatinine (Misc Panel) 0.7, POC Hematocrit (Misc Panel) 45.0 06/10/20 20:20: CBC/BMP Laboratory Tests 06/10/20 18:25 Home Medications Scheduled Amlodipine Besylate (Amlodipine Besylate) 5 Mg Tab, 5 MG PO BID Ascorbic Acid (Vitamin C) 1,000 Mg Tablet, 1,000 MG PO BID Aspirin (Aspirin EC) 81 Mg Tab, 81 MG PO QPM Cinnamon Bark (Cinnamon) 500 Mg Capsule, 500 MG PO BID Ciprofloxacin HCl (Cipro) 500 Mg Tablet, 500 MG PO BID STARTED 06/07/20 X 14 DAYS Dapagliflozin Propanediol (Farxiga) 10 Mg Tablet, 10 MG PO DAILY Docusate Sodium (Dok) 100 Mg Tablet, 100 MG PO BID Hydrochlorothiazide (Hydrochlorothiazide) 12.5 Mg Tab, 12.5 MG PO DAILY Losartan Potassium (Losartan Potassium) 50 Mg Tablet, 50 MG PO DAILY Metronidazole (Flagyl) 500 Mg Tablet, 500 MG PO Q8H STARTED 06/07/20 X 14 DAYS Nebivolol HCl (Bystolic) 10 Mg Tab, 10 MG PO BID [place]-3 Fatty Acids/Fish Oil (Fish Oil 1,000 mg Capsule) 1 Each Capsule, 1,000 MG PO BID Pantoprazole Sodium (Pantoprazole Sodium) 40 Mg Tab, 40 MG PO DAILY Scheduled PRN Ibuprofen (Ibuprofen) 200 Mg Tablet, 800 MG PO TID PRN for PAIN Ondansetron (Ondansetron Odt) 4 Mg Tab.rapdis, 4 MG PO Q6-8HP PRN for NAUSEA OR VOMITING Oxycodone/Acetaminophen (Oxycodone-Acetaminophen 5-325) 1 Each Tablet, 1 TAB PO Q6H PRN for PAIN Allergies Coded Allergies: No Known Drug Allergies (Verified Allergy, Unknown, 08/07/18) A-FIB/CHADSVASC A-FIB History Current/History of A-Fib/PAF?: No Current PO Anticoag Therapy: No GURJIT PHELAN MD June 10, 2020 20:49
[2020-06-10 21:19] LABS: RSV AMPLIFICATION NEGATIVE (NEGATIVE)
[2020-06-10] MEDS: DOCUSATE SODIUM 100MG CAPSULE PO SCH (21:22)
[2020-06-10] MEDS: ONDANSETRON 4MG/2ML VIAL IV SCH (21:22)
[2020-06-10] MEDS: NS 1,000 ML IV SCH (21:22)
[2020-06-10] MEDS: MORPHINE 2 MG/ML 1ML VIAL (J2270) IV PRN (21:28)
[2020-06-10] MEDS ORDERED: DEXTROSE 50% 50 ML SYRINGE IV PRN (21:30)
[2020-06-10] MEDS ORDERED: GLUCAGON INJ 1MG VIAL SC PRN (21:30)
[2020-06-10] MEDS ORDERED: GLUCOSE 4GM CHEW TABLET PO PRN (21:30)
[2020-06-10] MEDS: amLODIPine 5 MG TAB PO SCH (22:25)
[2020-06-10] MEDS: ASPIRIN 81MG ENTERIC TABLET PO SCH (22:25)
[2020-06-10] MEDS: HumaLOG INSULIN (NovoLOG) PER UNIT SC SCH (22:25)
[2020-06-10] MEDS: PERCOCET 5MG/325MG TAB PO PRN (23:37)
[2020-06-11] VITALS: BP 145/86
[2020-06-11] MEDS: NEBIVOLOL 5 MG TAB (BYSTOLIC) PO SCH ×3 (01:15→21:05)
[2020-06-11] MEDS: ONDANSETRON 4MG/2ML VIAL IV SCH ×6 (01:15→20:40)
[2020-06-11] MEDS: MORPHINE 2 MG/ML 1ML VIAL (J2270) IV PRN ×2 (02:36→08:23)
[2020-06-11] MEDS: NS 1,000 ML IV SCH ×3 (05:20→21:16)
[2020-06-11] MEDS: PERCOCET 5MG/325MG TAB PO PRN (05:20)
[2020-06-11 06:00] VITALS: BP 139/88
[2020-06-11 07:03] LABS: BASO % 0.2 % (0.0-1.0); EOS % 0.1 % (0.0-3.0); HEMATOCRIT 38.9 % (42.0-52.0); LYMPH # 1.3 10^3/uL (1.5-5.0); MEAN CORPUSCULAR HEMOGLOBIN 29.2 pg (27.0-33.0); MEAN CORPUSCULAR HGB CONC 33.2 g/dl (32.0-36.5); MONO # 1.4 10^3/uL (0.0-0.8); MONO % 10.2 % (2.0-8.0); NEUTROPHILS # 10.4 10^3/uL (1.5-8.5); NEUTROPHILS % 78.5 % (36.0-66.0); PLATELET COUNT, AUTOMATED 225 10^3/uL (150-450); RED BLOOD COUNT 4.42 10^6/uL (4.30-6.10); WHITE BLOOD COUNT 13.2 10^3/uL (4.0-10.0)
[2020-06-11 07:10] LABS: HEMOGLOBIN 12.9 g/dl (13.5-17.5)
[2020-06-11] MEDS: HumaLOG INSULIN (NovoLOG) PER UNIT SC SCH ×4 (07:30→21:06)
[2020-06-11] MEDS ORDERED: METOCLOPRAMIDE INJ 10MG/2ML VIAL (J2765 PER 1) IV ONE (07:35)
[2020-06-11 07:36] LABS: ALBUMIN 2.6 GM/DL (3.2-5.2); ALT/SGPT 21 U/L (12-78); BILIRUBIN,TOTAL 0.7 MG/DL (0.2-1.0); BLOOD UREA NITROGEN 11 MG/DL (7-18); CALCIUM LEVEL 8.7 MG/DL (8.5-10.1); CARBON DIOXIDE LEVEL 24 MEQ/L (21-32); CHLORIDE LEVEL 103 MEQ/L (98-107); CHOLESTEROL LEVEL 146 MG/DL (<200); CHOLESTEROL RISK RATIO 4.562 (<5); CREATININE FOR GFR 0.61 MG/DL (0.70-1.30); GLOMERULAR FILTRATION RATE > 60.0 (>56); GLUCOSE, FASTING 175 MG/DL (70-100); HDL CHOLESTEROL 32 MG/DL (>40); LDL CHOLESTEROL 87 MG/DL (<100); MAGNESIUM LEVEL 2.1 MG/DL (1.8-2.4); NON-HDL-C 114 MG/DL; SODIUM LEVEL 140 MEQ/L (136-145); TOTAL PROTEIN 5.9 GM/DL (6.4-8.2); TRIGLYCERIDES LEVEL 135 MG/DL (<150)
[2020-06-11] MEDS: hydroCHLOROthiazide 12.5 MG CAPSULE PO SCH (08:17)
[2020-06-11] MEDS: LOSARTAN 50MG TABLET PO SCH (08:17)
[2020-06-11] MEDS: DOCUSATE SODIUM 100MG CAPSULE PO SCH ×2 (08:18→21:05)
[2020-06-11] MEDS: amLODIPine 5 MG TAB PO SCH ×2 (08:18→21:04)
[2020-06-11] MEDS: PANTOPRAZOLE 40MG TAB (PROTONIX) PO SCH (08:18)
[2020-06-11] MEDS ORDERED: HYDROmorphone HCL 2 MG/ML 1ML VIAL (J1170) IV ONE (08:45)
[2020-06-11] MEDS ORDERED: KETOROLAC 30 MG/ML 1ML VIAL IV ONE ×2 (08:45→16:50)
--- NOTE | 2020-06-11 10:00 | CR.PDOC ---
General Surgery Consultation Date of Consultation 06/11/20 History and Physical General Surgery Dr Arnold. REASON FOR CONSULTATION: The patient is a 59-year-old male with history of recurrent perirectal abscess who presented to the emergency room on 06/07/20 with perirectal infection and was discharged home with oral Cipro/Flagyl. The patient returned to the emergency department 06/10/20 with worsening symptoms, CT with contrast indicated multilocular perirectal abscess to the left and the right of the rectum. Gen. surgery was consulted, the patient was admitted for IV antibiotics with plan for IR CT-guided drainage of the perirectal abscess. PAST MEDICAL HISTORY: Recurrent perirectal abscess Hypertension VERENA DM 2 BMI 34.8 PAST SURGICAL HISTORY: INCLUDES: multiple CT guided drainage of perirectal abcess Repaired deviated septum adenoidectomy ALLERGIES: Please see below. HOME MEDICATIONS: Please see below. ROS As noted in HPI otherwise 10 point review of systems unremarkable. PHYSICAL EXAMINATION: VITALS SIGNS: Please see below. GENERAL APPEARANCE:Awake, alert, and oriented. In no acute distress]. SKIN: Warm and moist. HEENT: Normocephalic, atraumatic. [place] palpebral conjunctiva, anicteric sclerae. Lips and mucosa appear moist. NECK: Supple. LUNGS: Clear to auscultation bilaterally. No wheezing appreciated. HEART: Regular rate and rhythm with no murmurs appreciated. ABDOMEN: Abdomen is soft, NT, ND Rectal exam deferred. EXTREMITIES: No edema CT A/P IMPRESSION: 1. There is a diffuse decrease in hepatic parenchymal density, consistent with steatosis. 2. Diffuse asymmetric thickening of the left lateral wall of the rectum. 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 Clinical correlation to exclude neoplasm suggested. 3. Increased size of a multilocular perirectal abscess demonstrated on both the right and left sides of the rectum and tracking more inferiorly along the medial buttocks left greater than right. IMPRESSION AND PLAN: Recurrent perirectal abscess. The patient is reviewed and examined as per Dr. Arnold. Imaging reviewed as per Dr. Arnold. Plan is for IR CT guided drainage today. Patient will likely be discharged home with the drain. Continue IV antibiotics as per hospitalist. Plan for outpatient colonoscopy to further evaluate for etiology of recurrent perirectal abscess. Vital Signs Vital Signs Date Time Temp Pulse Resp B/P (MAP) Pulse Ox O2 Delivery O2 Flow Rate FiO2 06/11/20 09:09 18 06/11/20 08:19 79 138/83 06/11/20 06:00 97.1 96 06/11/20 05:50 Room Air I&Os I&O- Last 24 Hours up to 6 AM 06/11/20 06:00 Intake Total 100 ml Balance 100 ml Laboratory Data Labs 24H Laboratory Tests 2 06/10/20 18:25: Immature Granulocyte % (Auto) 0.9, Neutrophils (%) (Auto) 79.3H, Lymphocytes (%) (Auto) 9.6L, Monocytes (%) (Auto) 9.8H, Eosinophils (%) (Auto) 0.1, Basophils (%) (Auto) 0.3, Neutrophils # (Auto) 11.8H, Lymphocytes # (Auto) 1.4L, Monocytes # (Auto) 1.5H, Eosinophils # (Auto) 0.0, Basophils # (Auto) 0.1, Nucleated Red Blood Cells % (auto) 0.0, Erythrocyte Sedimentation Rate 52H, Lactic Acid Level 1.4, Total Bilirubin 0.8, Direct Bilirubin 0.2, Aspartate Amino Transf (AST/SGOT) 18, Alanine Aminotransferase (ALT/SGPT) 23, Alkaline Phosphatase 98, C-Reactive Protein, Quantitative 17.50H, Total Protein 6.9, Albumin 3.2, Albumin/Globulin Ratio 0.9 06/10/20 18:36: POC Glucose (Misc Panel) 162H, POC Sodium (Misc Panel) 137, POC Potassium (Misc Panel) 4.1, POC Chloride (Misc Panel) 99, POC Total CO2 (Misc Panel) 31.0H, POC Blood Urea Nitrogen (Misc Panel 11, POC Ionized Calcium (Misc Panel) 4.5, POC Creatinine (Misc Panel) 0.7, POC Hematocrit (Misc Panel) 45.0 06/10/20 20:20: Coronavirus (COVID-19)(PCR) NEGATIVE, Influenza Type A (RT-PCR) NEGATIVE, Influenza Type B (RT-PCR) NEGATIVE, Respiratory Syncytial Virus (PCR) NEGATIVE 06/10/20 22:19: Bedside Glucose (Misc Panel) 252H 06/11/20 06:25: Immature Granulocyte % (Auto) 1.0, Neutrophils (%) (Auto) 78.5H, Lymphocytes (%) (Auto) 10.0L, Monocytes (%) (Auto) 10.2H, Eosinophils (%) (Auto) 0.1, Basophils (%) (Auto) 0.2, Neutrophils # (Auto) 10.4H, Lymphocytes # (Auto) 1.3L, Monocytes # (Auto) 1.4H, Eosinophils # (Auto) 0.0, Basophils # (Auto) 0.0, Nucleated Red Blood Cells % (auto) 0.0, Anion Gap 13, Glomerular Filtration Rate > 60.0, Calcium Level 8.7, Magnesium Level 2.1, Total Bilirubin 0.7, Aspartate Amino Transf (AST/SGOT) 11, Alanine Aminotransferase (ALT/SGPT) 21, Alkaline Phosphatase 86, Total Protein 5.9L, Albumin 2.6L, Albumin/Globulin Ratio 0.8, Triglycerides Level 135, Total Cholesterol 146, LDL Cholesterol 87, Non-HDL Cholesterol (LDL + VLDL) 114, Total HDL Cholesterol 32L, Cholesterol/HDL Ratio 4.562 CBC/BMP Laboratory Tests 06/10/20 18:25 06/11/20 06:25 Home Medications Scheduled Amlodipine Besylate (Amlodipine Besylate) 5 Mg Tab, 5 MG PO BID, (Reported) Ascorbic Acid (Vitamin C) 1,000 Mg Tablet, 1,000 MG PO BID, (Reported) Aspirin (Aspirin EC) 81 Mg Tab, 81 MG PO QPM, (Reported) Cinnamon Bark (Cinnamon) 500 Mg Capsule, 500 MG PO BID, (Reported) Ciprofloxacin HCl (Cipro) 500 Mg Tablet, 500 MG PO BID, (Reported) STARTED 06/07/20 X 14 DAYS Dapagliflozin Propanediol (Farxiga) 10 Mg Tablet, 10 MG PO DAILY, (Reported) Docusate Sodium (Dok) 100 Mg Tablet, 100 MG PO BID, (Reported) Hydrochlorothiazide (Hydrochlorothiazide) 12.5 Mg Tab, 12.5 MG PO DAILY, (Reported) Losartan Potassium (Losartan Potassium) 50 Mg Tablet, 50 MG PO DAILY, (Reported) Metronidazole (Flagyl) 500 Mg Tablet, 500 MG PO Q8H, (Reported) STARTED 06/07/20 X 14 DAYS Nebivolol HCl (Bystolic) 10 Mg Tab, 10 MG PO BID, (Reported) [place]-3 Fatty Acids/Fish Oil (Fish Oil 1,000 mg Capsule) 1 Each Capsule, 1,000 MG PO BID, (Reported) Pantoprazole Sodium (Pantoprazole Sodium) 40 Mg Tab, 40 MG PO DAILY, (Reported) Scheduled PRN Ibuprofen (Ibuprofen) 200 Mg Tablet, 800 MG PO TID PRN for PAIN, (Reported) Ondansetron (Ondansetron Odt) 4 Mg Tab.rapdis, 4 MG PO Q6-8HP PRN for NAUSEA OR VOMITING, (Reported) Oxycodone/Acetaminophen (Oxycodone-Acetaminophen 5-325) 1 Each Tablet, 1 TAB PO Q6H PRN for PAIN, (Reported) Allergies Coded Allergies: No Known Drug Allergies (Verified Allergy, Unknown, 08/07/18) Sruthi Bone June 11, 2020 10:00
[2020-06-11 11:00] LABS: INR 1.19; PROTHROMBIN TIME 15.4 SECONDS (12.5-14.3)
[2020-06-11 11:01] LABS: PARTIAL THROMBOPLASTIN TIME 32.8 SECONDS (24.2-38.5)
[2020-06-11] MEDS ORDERED: LIDOCAINE 1% MDV 20ML VIAL As Ordered ONE (12:58)
[2020-06-11 13:20] LABS: HEMOGLOBIN A1c 9.7 %
[2020-06-11 14:00] VITALS: BP 133/78
--- NOTE | 2020-06-11 14:07 | IPNPDOC ---
Date Seen The patient was seen on 06/11/20. Progress Note SUBJECTIVE: c/o 10/10 sharp pain in perirectal area better when laying still on left side no c/o chills. no n/v/diarrhea OBJECTIVE PHYSICAL EXAMINATION: VITAL SIGNS: Please see below. GENERAL:no respiratory distress aaox 3 HEENT: no jvd, thyromegaly, or cervical LAD CARDIOVASCULAR: S1S2 RRR RESPIRATORY: CTAB ABDOMINAL: obese + bs soft nt nd no cvat. perirectal abscess EXTREMITIES: no cyanosis, clubbing LABORATORY DATA, IMAGING STUDIES, MICROBIOLOGY: Please see below. ASSESSMENT AND PLAN: 59 y/o w penny on cpap htn dm2 recurrent perirectal abscess perirectal abscess -iv unasyn -surgical consult -prn pain meds htn -resume don home meds dm2, uncontrolled -insulin, slide scale -consistent carbs dvt prophylaxis: compression stockings. VS, I&O, 24H, Fishbone Vital Signs/I&O Vital Signs Date Time Temp Pulse Resp B/P (MAP) Pulse Ox O2 Delivery O2 Flow Rate FiO2 06/11/20 09:19 16 06/11/20 08:19 79 138/83 06/11/20 06:00 97.1 96 06/11/20 05:50 Room Air I&O- Last 24 Hours up to 6 AM 06/11/20 06:00 Intake Total 100 ml Balance 100 ml Laboratory Data 24H LABS Laboratory Tests 2 06/10/20 18:25: Immature Granulocyte % (Auto) 0.9, Neutrophils (%) (Auto) 79.3H, Lymphocytes (%) (Auto) 9.6L, Monocytes (%) (Auto) 9.8H, Eosinophils (%) (Auto) 0.1, Basophils (%) (Auto) 0.3, Neutrophils # (Auto) 11.8H, Lymphocytes # (Auto) 1.4L, Monocytes # (Auto) 1.5H, Eosinophils # (Auto) 0.0, Basophils # (Auto) 0.1, Nucleated Red Blood Cells % (auto) 0.0, Erythrocyte Sedimentation Rate 52H, Lactic Acid Level 1.4, Total Bilirubin 0.8, Direct Bilirubin 0.2, Aspartate Amino Transf (AST/SGOT) 18, Alanine Aminotransferase (ALT/SGPT) 23, Alkaline Phosphatase 98, C-Reactive Protein, Quantitative 17.50H, Total Protein 6.9, Albumin 3.2, Albumin/Globulin Ratio 0.9 06/10/20 18:36: POC Glucose (Misc Panel) 162H, POC Sodium (Misc Panel) 137, POC Potassium (Misc Panel) 4.1, POC Chloride (Misc Panel) 99, POC Total CO2 (Misc Panel) 31.0H, POC Blood Urea Nitrogen (Misc Panel 11, POC Ionized Calcium (Misc Panel) 4.5, POC Creatinine (Misc Panel) 0.7, POC Hematocrit (Misc Panel) 45.0 06/10/20 20:20: Coronavirus (COVID-19)(PCR) NEGATIVE, Influenza Type A (RT-PCR) NEGATIVE, Influenza Type B (RT-PCR) NEGATIVE, Respiratory Syncytial Virus (PCR) NEGATIVE 06/10/20 22:19: Bedside Glucose (Misc Panel) 252H 06/11/20 06:25: Immature Granulocyte % (Auto) 1.0, Neutrophils (%) (Auto) 78.5H, Lymphocytes (%) (Auto) 10.0L, Monocytes (%) (Auto) 10.2H, Eosinophils (%) (Auto) 0.1, Basophils (%) (Auto) 0.2, Neutrophils # (Auto) 10.4H, Lymphocytes # (Auto) 1.3L, Monocytes # (Auto) 1.4H, Eosinophils # (Auto) 0.0, Basophils # (Auto) 0.0, Nucleated Red Blood Cells % (auto) 0.0, Anion Gap 13, Glomerular Filtration Rate > 60.0, Estimated Mean Plasma Glucose 232H, Hemoglobin A1c 9.7, Calcium Level 8.7, Magnesium Level 2.1, Total Bilirubin 0.7, Aspartate Amino Transf (AST/SGOT) 11, Alanine Aminotransferase (ALT/SGPT) 21, Alkaline Phosphatase 86, Total Protein 5.9L, Albumin 2.6L, Albumin/Globulin Ratio 0.8, Triglycerides Level 135, Total Cholesterol 146, LDL Cholesterol 87, Non-HDL Cholesterol (LDL + VLDL) 114, Total HDL Cholesterol 32L, Cholesterol/HDL Ratio 4.562 06/11/20 10:20: Prothrombin Time 15.4H, Prothromb Time International Ratio 1.19, Activated Partial Thromboplast Time 32.8 06/11/20 11:26: Bedside Glucose (Misc Panel) 198H CBC/BMP Laboratory Tests 06/10/20 18:25 06/11/20 06:25 JOHNNIE RUIZ MD June 11, 2020 14:07
--- NOTE | 2020-06-11 16:22 | REP ---
INDICATION: PERIRECTAL ABSCESS DRAIN. COMPARISON: None. TECHNIQUE: The procedure was performed under the direct supervision of Dr. Alford. The patient has a history of a multilocular perirectal abscess seen on a previous CT scan dated 06/10/2020. The risks and benefits of the procedure were explained to the patient and informed consent was obtained. The perirectal abscess was localized using CT guidance. The skin was prepped and draped in a sterile fashion. 1% lidocaine was used as a local anesthetic. Using CT guidance an 8 [place] APDL catheter was inserted using trocar technique. 75 cc of brown proteinaceous fluid was withdrawn and sent to the lab for analysis. The abscess cavity was flushed with 4 10 cc aliquots of sterile saline. The catheter was affixed to the skin and a sterile dressing was applied. The catheter was connected to a gravity drainage bag. The patient tolerated the procedure well and there were no immediate complications. After the appropriate amount to monitor convalescence the patient was discharged from the department. FINDINGS: None IMPRESSION: CT-guided perirectal abscess drain with catheter placement. <Electronically signed by Sai Bernal > 06/11/20 [id number] <Electronically signed by Mitchell Alford > 06/11/20 [id number]
[2020-06-11] MEDS ORDERED: LevoFLOXacin IV 750 MG in IV 1 EA IV SCH (18:00)
[2020-06-11] MEDS: ASPIRIN 81MG ENTERIC TABLET PO SCH (21:04)
[2020-06-11] MEDS: LEVEMIR (INSULIN DETEMIR) 1 UNITS/0.01ML SC SCH (21:06)
[2020-06-11 22:00] VITALS: BP 147/81
[2020-06-12] MEDS: ONDANSETRON 4MG/2ML VIAL IV SCH ×7 (00:40→20:40)
[2020-06-12] MEDS: AMPICILLIN SOD/SULBACTAM SOD 3 GM in D5W MINI-BAG PLUS 100 ML IV SCH ×4 (02:32→20:49)
[2020-06-12] MEDS: NS 1,000 ML IV SCH (05:50)
[2020-06-12 06:00] VITALS: BP 150/84
[2020-06-12 06:34] LABS: BASO # 0.1 10^3/uL (0.0-0.2); BASO % 0.5 % (0.0-1.0); EOS # 0.1 10^3/uL (0.0-0.5); EOS % 0.4 % (0.0-3.0); HEMATOCRIT 39.5 % (42.0-52.0); HEMOGLOBIN 13.3 g/dl (13.5-17.5); LYMPH # 1.7 10^3/uL (1.5-5.0); LYMPH % 14.5 % (24.0-44.0); MEAN CORPUSCULAR HEMOGLOBIN 29.4 pg (27.0-33.0); MEAN CORPUSCULAR HGB CONC 33.7 g/dl (32.0-36.5); MEAN CORPUSCULAR VOLUME 87.2 fl (80.0-96.0); MONO # 0.9 10^3/uL (0.0-0.8); MONO % 7.9 % (2.0-8.0); NEUTROPHILS # 8.8 10^3/uL (1.5-8.5); NEUTROPHILS % 74.9 % (36.0-66.0); PLATELET COUNT, AUTOMATED 240 10^3/uL (150-450); RED BLOOD COUNT 4.53 10^6/uL (4.30-6.10); WHITE BLOOD COUNT 11.8 10^3/uL (4.0-10.0)
[2020-06-12 06:59] LABS: ALBUMIN 2.4 GM/DL (3.2-5.2); ALT/SGPT 18 U/L (12-78); BILIRUBIN,TOTAL 0.3 MG/DL (0.2-1.0); BLOOD UREA NITROGEN 14 MG/DL (7-18); CARBON DIOXIDE LEVEL 27 MEQ/L (21-32); CHLORIDE LEVEL 104 MEQ/L (98-107); CREATININE FOR GFR 0.66 MG/DL (0.70-1.30); GLOMERULAR FILTRATION RATE > 60.0 (>56); GLUCOSE, FASTING 164 MG/DL (70-100); MAGNESIUM LEVEL 2.2 MG/DL (1.8-2.4); SODIUM LEVEL 138 MEQ/L (136-145); TOTAL PROTEIN 5.6 GM/DL (6.4-8.2)
[2020-06-12] MEDS: LOSARTAN 50MG TABLET PO SCH (08:02)
[2020-06-12] MEDS: hydroCHLOROthiazide 12.5 MG CAPSULE PO SCH (08:02)
[2020-06-12] MEDS: NEBIVOLOL 5 MG TAB (BYSTOLIC) PO SCH ×2 (08:03→20:51)
[2020-06-12] MEDS: PANTOPRAZOLE 40MG TAB (PROTONIX) PO SCH (08:03)
[2020-06-12] MEDS: DOCUSATE SODIUM 100MG CAPSULE PO SCH ×2 (08:03→20:51)
[2020-06-12] MEDS: amLODIPine 5 MG TAB PO SCH ×2 (08:03→20:51)
[2020-06-12] MEDS: HumaLOG INSULIN (NovoLOG) PER UNIT SC SCH ×4 (08:04→20:51)
--- NOTE | 2020-06-12 09:07 | IPNPDOC ---
Text Note Date of Service The patient was seen on 06/12/20. NOTE General Surgery Dr Arnold. The patient is a 59-year-old male with history of recurrent perirectal abscess who presented to the emergency room on 06/07/20 with perirectal infection and was discharged home with oral Cipro/Flagyl. The patient returned to the emergency department 06/10/20 with worsening symptoms, CT with contrast indicated multilocular perirectal abscess to the left and the right of the rectum. Patient is status post IR CT-guided drainage of the perirectal abscess with placement of drain 06/11/20. This morning, the patient states his pain is significantly improved. Afebrile, VSS In no acute distress. LUNGS: Clear to auscultation bilaterally. No wheezing appreciated. HEART: Regular rate and rhythm with no murmurs appreciated. ABDOMEN: Abdomen is soft, NT, ND Drain in place, draining 35 mL drained this morning. EXTREMITIES: No edema IMPRESSION AND PLAN: Recurrent perirectal abscess. The patient is reviewed as per Dr. Arnold. S/P IR CT guided drainage and placement of drain 06/11/20. Continue IV antibiotics as per hospitalist. Plan is to discharge the patient home with the drain. If pain is controlled and the patient has no fever, the patient could be discharged from a surgical standpoint with outpatient follow-up when felt medically stable. Follow-up with Gen. surgery for management of drain. Tentative Plan for outpatient colonoscopy to further evaluate for etiology of recurrent perirectal abscess VS,Fishbone, I+O VS, Fishbone, I+O Laboratory Tests 06/12/20 05:57 Vital Signs Date Time Temp Pulse Resp B/P (MAP) Pulse Ox O2 Delivery O2 Flow Rate FiO2 06/12/20 08:03 77 149/87 06/12/20 06:00 98.5 18 96 Room Air I&O- Last 24 Hours up to 6 AM 06/12/20 05:59 Intake Total 1655 ml Output Total 0 ml Balance 1655 ml Sruthi Bone June 12, 2020 09:07
[2020-06-12] MEDS: MOM 30ML SUSPENSION UDC PO PRN (13:58)
[2020-06-12 14:00] VITALS: BP 144/84
--- NOTE | 2020-06-12 20:37 | IPNPDOC ---
Date Seen The patient was seen on 06/12/20. Progress Note SUBJECTIVE: Improved perirectal pain, drain in place and draining brown liquid into bag. WBC improving, afebrile. D/w surgery, c/w abx. Denies fevers, chills, n/v/d. OBJECTIVE: PHYSICAL EXAMINATION: VITAL SIGNS: Please see below. GENERAL:no respiratory distress, aaox 3 HEENT: no jvd, thyromegaly, or cervical LAD CARDIOVASCULAR: S1S2 RRR RESPIRATORY: CTAB : buttocks drain in place draining to bag on left. Nontender, no increased erythema or tendernss. ABDOMINAL: obese + bs soft nt nd no cvat. EXTREMITIES: no cyanosis, clubbing LABORATORY DATA, IMAGING STUDIES, MICROBIOLOGY: Aerobic abscess cx: Strep agalactiae Group B, official culture pending Anaerobic abscess cx: pending ASSESSMENT: 59 y/o M with PMH of perirectal asbscess, DM type II, HTN admitted for recurrent perirectal abscess, surgery following. PLAN: Recurrent perirectal abscess -S/P IR CT guided drainage and placement of drain 06/11/20. -Abscess cx growing Strep agalactiae Group B, drain in place. Improved pain, afebrile, WBC decr to 11K -D/c levofloxacin, c/w IV unasyn -D/w Dr. Arnold today: plan is await culture results. When back can d/c home to f/u with surgery o/p with drain in place. Will need o/p colonoscopy to see if there can be identified an area feeding recurrent abscess. -PRN pain medications -Surgery following daily while here HTN -controlle, c/w home meds DM type II -BS controlled -insulin, slide scale -consistent carbs DVT px -heparin SC DISPOSITION: Plan is discharge home with f/u with general surgery as o/p with drain when medically improved. Should have cx back before this occurs. VS, I&O, 24H, Fishbone Vital Signs/I&O Vital Signs Date Time Temp Pulse Resp B/P (MAP) Pulse Ox O2 Delivery O2 Flow Rate FiO2 06/12/20 14:00 98.1 20 67 144/84 (104) 95 Room Air I&O- Last 24 Hours up to 6 AM 06/12/20 06:00 Intake Total 1655 ml Output Total 0 ml Balance 1655 ml Laboratory Data 24H LABS Laboratory Tests 2 06/12/20 05:57: Immature Granulocyte % (Auto) 1.8, Neutrophils (%) (Auto) 74.9H, Lymphocytes (%) (Auto) 14.5L, Monocytes (%) (Auto) 7.9, Eosinophils (%) (Auto) 0.4, Basophils (%) (Auto) 0.5, Neutrophils # (Auto) 8.8H, Lymphocytes # (Auto) 1.7, Monocytes # (Auto) 0.9H, Eosinophils # (Auto) 0.1, Basophils # (Auto) 0.1, Nucleated Red Blood Cells % (auto) 0.0, Anion Gap 7L, Glomerular Filtration Rate > 60.0, Calcium Level 8.0L, Magnesium Level 2.2, Total Bilirubin 0.3#, Aspartate Amino Transf (AST/SGOT) 11, Alanine Aminotransferase (ALT/SGPT) 18, Alkaline Phosphatase 88, Total Protein 5.6L, Albumin 2.4L, Albumin/Globulin Ratio 0.8 06/12/20 11:22: Bedside Glucose (Misc Panel) 270H 06/12/20 16:37: Bedside Glucose (Misc Panel) 175H 06/12/20 19:35: Bedside Glucose (Misc Panel) 173H CBC/BMP Laboratory Tests 06/12/20 05:57 Microbiology Microbiology 06/11/20 Anaerobic Culture, Received Pending 06/11/20 Gram Stain - Final, Resulted 06/11/20 Abscess Culture - Preliminary, Resulted Strep Agalactiae Group B Trudy Sewell MD June 12, 2020 20:37
[2020-06-12] MEDS: HEPARIN SOD (PORCINE) 5000UNITS/ML 1ML VIAL/SYRINGE SQ SCH (20:49)
[2020-06-12] MEDS: ASPIRIN 81MG ENTERIC TABLET PO SCH (20:50)
[2020-06-12] MEDS: LEVEMIR (INSULIN DETEMIR) 1 UNITS/0.01ML SC SCH (20:50)
[2020-06-12] MEDS ORDERED: SENNA 8.6 MG TAB (SENOKOT) PO SCH (21:00)
[2020-06-12 22:00] VITALS: BP 147/85
[2020-06-13] MEDS: ONDANSETRON 4MG/2ML VIAL IV SCH ×3 (00:38→09:30)
[2020-06-13] MEDS: AMPICILLIN SOD/SULBACTAM SOD 3 GM in D5W MINI-BAG PLUS 100 ML IV SCH ×2 (03:01→09:31)
[2020-06-13 06:00] VITALS: BP 158/97
[2020-06-13 06:40] LABS: BASO # 0.1 10^3/uL (0.0-0.2); BASO % 0.8 % (0.0-1.0); EOS # 0.2 10^3/uL (0.0-0.5); EOS % 1.7 % (0.0-3.0); HEMATOCRIT 38.8 % (42.0-52.0); HEMOGLOBIN 13.2 g/dl (13.5-17.5); LYMPH % 21.8 % (24.0-44.0); MEAN CORPUSCULAR HEMOGLOBIN 28.9 pg (27.0-33.0); MEAN CORPUSCULAR VOLUME 84.9 fl (80.0-96.0); MONO # 0.8 10^3/uL (0.0-0.8); MONO % 9.1 % (2.0-8.0); NEUTROPHILS # 5.7 10^3/uL (1.5-8.5); PLATELET COUNT, AUTOMATED 221 10^3/uL (150-450); RED BLOOD COUNT 4.57 10^6/uL (4.30-6.10)
[2020-06-13 07:00] LABS: ALBUMIN 2.4 GM/DL (3.2-5.2); ALT/SGPT 18 U/L (12-78); BILIRUBIN,TOTAL 0.3 MG/DL (0.2-1.0); BLOOD UREA NITROGEN 10 MG/DL (7-18); CARBON DIOXIDE LEVEL 29 MEQ/L (21-32); CHLORIDE LEVEL 101 MEQ/L (98-107); CREATININE FOR GFR 0.64 MG/DL (0.70-1.30); GLOMERULAR FILTRATION RATE > 60.0 (>56); GLUCOSE, FASTING 167 MG/DL (70-100); MAGNESIUM LEVEL 2.2 MG/DL (1.8-2.4); POTASSIUM SERUM 3.7 MEQ/L (3.5-5.1); SODIUM LEVEL 137 MEQ/L (136-145); TOTAL PROTEIN 5.7 GM/DL (6.4-8.2)
[2020-06-13] MEDS ORDERED: ACET1TAB55 PO (09:13)
[2020-06-13] MEDS ORDERED: PROB250C PO (09:13)
[2020-06-13] MEDS ORDERED: LEVO500T3 PO (09:13)
[2020-06-13] MEDS ORDERED: SENN18TA PO (09:13)
[2020-06-13] MEDS ORDERED: LACTULOSE 20 GM/30 ML SYRUP UD PO ONE ×2 (09:30→12:00)
[2020-06-13] MEDS: MOM 30ML SUSPENSION UDC PO PRN (09:30)
[2020-06-13] MEDS: HumaLOG INSULIN (NovoLOG) PER UNIT SC SCH ×2 (09:31→12:44)
[2020-06-13] MEDS: HEPARIN SOD (PORCINE) 5000UNITS/ML 1ML VIAL/SYRINGE SQ SCH (09:32)
[2020-06-13] MEDS: hydroCHLOROthiazide 12.5 MG CAPSULE PO SCH (09:32)
[2020-06-13 09:33] VITALS: BP 166/90
[2020-06-13] MEDS: PANTOPRAZOLE 40MG TAB (PROTONIX) PO SCH (09:33)
[2020-06-13] MEDS: LOSARTAN 50MG TABLET PO SCH (09:33)
[2020-06-13] MEDS: amLODIPine 5 MG TAB PO SCH (09:33)
[2020-06-13] MEDS: NEBIVOLOL 5 MG TAB (BYSTOLIC) PO SCH (09:34)
[2020-06-13] MEDS: DOCUSATE SODIUM 100MG CAPSULE PO SCH (09:34)
[2020-06-13] MEDS ORDERED: FLEET OIL RETENTION ENEMA PR PRN (11:25)
--- NOTE | 2020-06-13 17:32 | DS.PDOC ---
Discharge Summary General Date of Admission June 10, 2020 at 20:36 Date of Discharge 06/13/20 Attending Physician: Trudy Sewell MD Discharge Summary HISTORY OF PRESENT ILLNESS: 59 yo M with a PMhx of HTN, VERENA on CPAP, DM2, recurrent perirectal abscesses, being followed by Dr. Arnold. He was last seen in [facility] ER on 06/07/20 for developing perirectal infection, and was discharged home with ciprofloxacin and metronidazole and was seen in Dr. Arnold clinic on 06/08. He was instructed to return to ER if pain worsens. He present today with 10/10 perirectal pain and constipation with subjective chills. He states he feels otherwise well, but is unable to pass stool for pain, and is unable to sit upright. He was afebrile on arrival, with a WBC of 14.9, ESR 52, CRp 17.5. CT abdomen pelvis w IV contras showed multilocular perirectal abscess to left and right of rectum, along with thickenin of left lateral wall of rectum with concern for possible neoplasm. Dr. Arnold was consulted from the ER, recommended starting unasyn, and plan for IR CT guided drainage of perirectal abscess. HOSPITAL COURSE: Patient went to IR for CT guided drainage and placement of abscess drain 06/11/20. Abscess cx growing Strep agalactiae Group B and E. coli, and drain continued to drain a brown/reddish pustulant liquid. He quickly began to have improved pain. He remained afebrile, WBC decr to wnl by 06/13/20 with IV abx and by day of discharge he was transitioned to PO levofloxacin. Plan was discussed with Dr. Arnold: d/c home to f/u with surgery o/p with drain in place. Will need o/p colonoscopy to see if there can be identified an area feeding recurrent abscess. Pain was controlled. He experienced some constipation here likely 2/2 to opiate use. By day of discharge and many laxatives, he was much improved. Scheduled f/u was given to him at discharge and he felt much better. Other chronic issues remained stable. PAST MEDICAL HISTORY: HTN VERENA recurrent perirectal abscess DM2 PAST SURGICAL HISTORY: multiple CT guided drainage of perirectal abcess Repaired deviated septum adenoidectomy SOCIAL HISTORY: denies smoking, etoh use, illicit substance use FAMILY HISTORY: no pertinent history identified, reviewed with patient. DISCHARGE MEDS: Please see below PHYSICAL EXAMINATION: VITAL SIGNS: Please see below. GENERAL:no respiratory distress, aaox 3 HEENT: no jvd, thyromegaly, or cervical LAD CARDIOVASCULAR: S1S2 RRR RESPIRATORY: CTAB : buttocks drain in place draining to bag on left. Nontender, no increased erythema or tendernss. ABDOMINAL: obese + bs soft nt nd no cvat. EXTREMITIES: no cyanosis, clubbing LABORATORY DATA, IMAGING STUDIES, MICROBIOLOGY: Aerobic abscess cx: Strep agalactiae Group B, official culture pending Anaerobic abscess cx: pending ASSESSMENT: 59 y/o M with PMH of perirectal asbscess, DM type II, HTN admitted for recurrent perirectal abscess, surgery following. PLAN: Recurrent perirectal abscess -S/P IR CT guided drainage and placement of drain 06/11/20. -Abscess cx growing Strep agalactiae Group B and E. coli, drain in place. Improved pain, afebrile, WBC decr to wnl -S/p tx with levofloxacin, IV unasyn -D/w Dr. Arnold today: d/c home to f/u with surgery o/p with drain in place. Will need o/p colonoscopy to see if there can be identified an area feeding recurrent abscess. -PRN tylenol, PO levofloxacin x 2 weeks. -Surgery following o/p in 1 week Constipation likely 2/2 to opiate use- resolved HTN -controlled, c/w home meds DM type II -c/w home meds DISPOSITION:D/c home today with f/u with general surgery as o/p with drain. Plan per surgery is o/p colonoscopy. TIME SPENT ON DISCHARGE: 35 minutes. Vital Signs/I&Os Vital Signs Date Time Temp Pulse Resp B/P (MAP) Pulse Ox O2 Delivery O2 Flow Rate FiO2 06/13/20 09:33 166/90 06/13/20 06:00 98.3 71 18 95 Room Air I&O- Last 24 Hours up to 6 AM 06/13/20 06:00 Intake Total 2285 ml Output Total 60 ml Balance 2225 ml Laboratory Data Labs 24H Laboratory Tests 2 06/12/20 19:35: Bedside Glucose (Misc Panel) 173H 06/13/20 06:10: Immature Granulocyte % (Auto) 3.6H, Neutrophils (%) (Auto) 63.0, Lymphocytes (%) (Auto) 21.8L, Monocytes (%) (Auto) 9.1H, Eosinophils (%) (Auto) 1.7, Basophils (%) (Auto) 0.8, Neutrophils # (Auto) 5.7, Lymphocytes # (Auto) 2.0, Monocytes # (Auto) 0.8, Eosinophils # (Auto) 0.2, Basophils # (Auto) 0.1, Nucleated Red Blood Cells % (auto) 0.0, Anion Gap 7L, Glomerular Filtration Rate > 60.0, Calcium Level 8.0L, Magnesium Level 2.2, Total Bilirubin 0.3, Aspartate Amino T ransf (AST/SGOT) 11, Alanine Aminotransferase (ALT/SGPT) 18, Alkaline Phosphatase 93, Total Protein 5.7L, Albumin 2.4L, Albumin/Globulin Ratio 0.7 06/13/20 12:04: Bedside Glucose (Misc Panel) 239H CBC/BMP Laboratory Tests 06/13/20 06:10 FSBS Laboratory Tests Test 06/12/20 19:35 06/13/20 12:04 Range/Units Bedside Glucose (Misc Panel) 173 239 70-105 MG/DL Microbiology Microbiology 06/11/20 Anaerobic Culture, Received Pending 06/11/20 Gram Stain - Final, Resulted 06/11/20 Abscess Culture - Preliminary, Resulted Strep Agalactiae Group B Escherichia Coli Discharge Medications Scheduled Amlodipine Besylate (Amlodipine Besylate) 5 Mg Tab, 5 MG PO BID, (Reported) Ascorbic Acid (Vitamin C) 1,000 Mg Tablet, 1,000 MG PO BID, (Reported) Aspirin (Aspirin EC) 81 Mg Tab, 81 MG PO QPM, (Reported) Cinnamon Bark (Cinnamon) 500 Mg Capsule, 500 MG PO BID, (Reported) Dapagliflozin Propanediol (Farxiga) 10 Mg Tablet, 10 MG PO DAILY, (Reported) Docusate Sodium (Dok) 100 Mg Tablet, 100 MG PO BID, (Reported) Hydrochlorothiazide (Hydrochlorothiazide) 12.5 Mg Tab, 12.5 MG PO DAILY, (Reported) Levofloxacin (Levofloxacin) 500 Mg Tablet, 500 MG PO DAILY Losartan Potassium (Losartan Potassium) 50 Mg Tablet, 50 MG PO DAILY, (Reported) Nebivolol HCl (Bystolic) 10 Mg Tab, 10 MG PO BID, (Reported) Radnor-3 Fatty Acids/Fish Oil (Fish Oil 1,000 mg Capsule) 1 Each Capsule, 1,000 MG PO BID, (Reported) Pantoprazole Sodium (Pantoprazole Sodium) 40 Mg Tab, 40 MG PO DAILY, (Reported) Saccharomyces Boulardii (Probiotic) 250 Mg Capsule, 250 MG PO BIDWM Senna (Senna Lax) 8.6 Mg Tablet, 2 TAB PO QHS Scheduled PRN Acetaminophen (Acetaminophen) 325 Mg Tablet, 650 MG PO Q6HP PRN for PAIN OR FEVER Ibuprofen (Ibuprofen) 200 Mg Tablet, 800 MG PO TID PRN for PAIN, (Reported) Ondansetron (Ondansetron Odt) 4 Mg Tab.rapdis, 4 MG PO Q6-8HP PRN for NAUSEA OR VOMITING, (Reported) Oxycodone/Acetaminophen (Oxycodone-Acetaminophen 5-325) 1 Each Tablet, 1 TAB PO Q6H PRN for PAIN, (Reported) Allergies Coded Allergies: No Known Drug Allergies (Verified Allergy, Unknown, 08/07/18) Trudy Sewell MD June 13, 2020 17:32
== END 2020-06-13 16:00 | disposition home or self-care (01) | DRG 223 ==
LOC: M ED 14:40 → M ED INP 20:36 → ENRESERVTM 22:42 → M MSPAV 06-11
PROVIDERS: ADMIT Family Medicine; ATTEND Internal Medicine
PROC: 0D9P30Z Drainage of Rectum with Drainage Device, Percutaneous Approach (ICD-10-PCS; principal; 2020-06-11 13:00)
DX: K61.1 Rectal abscess (principal); I10 Essential (primary) hypertension; E11.9 Type 2 diabetes mellitus without complications; G47.33 Obstructive sleep apnea (adult) (pediatric); Z79.82 Long term (current) use of aspirin; Z79.899 Other long term (current) drug therapy; K21.9 Gastro-esophageal reflux disease without esophagitis

== ENCOUNTER → 2020-07-13 | Outpatient (CLI) | payer BC, OTHER ==
[~2020-07-13] MED LIST changes: +ACET1TAB55 PO; +DOK100TA2 PO; +FARX1TAB3 PO; +LEVO500T3 PO; +PERCOCET PO; +PROB250C PO; +SENN18TA PO
== END ==
LOC: M LABSMTC 10:14
PROVIDERS: ATTEND Anesthesiology
DX: Z01.812 Encounter for preprocedural laboratory examination (principal)

== ENCOUNTER 2020-07-18 10:05 | Day surgery (SDC) | payer BC, OTHER ==
[~2020-07-18] VITALS: Ht 177.8 cm; Wt 101.2 kg
[~2020-07-18 10:05] MED LIST changes: +NS 1,000 ML IV ONE
[2020-07-18] MEDS ORDERED: propofoL 200 MG/20 ML VIAL As Ordered ONE (11:24)
[2020-07-18] MEDS ORDERED: LIDOCAINE 2% 100MG/5ML SDV (FOR ANES.) As Ordered ONE (11:24)
--- NOTE | 2020-07-18 11:42 | ROOR ---
Patient Name: Yesenia Dowling Procedure Date: 07/18/2020 11:20 AM Date of : 1960 Age: 59 Room: [facility] Gender: Male Note Status: Finalized Procedure: Colonoscopy Indications: Fistula in ano, rule out fistula Providers: Mitchell Arnold DO Referring MD: Jadon Alejandre MD Requesting Provider: Medicines: Propofol per Anesthesia Complications: No immediate complications. Procedure: Pre-Anesthesia Assessment: - Prior to the procedure, a History and Physical was performed, and patient medications and allergies were reviewed. The patient is competent. The risks and benefits of the procedure and the sedation options and risks were discussed with the patient. All questions were answered and informed consent was obtained. Patient identification and proposed procedure were verified by the physician, the nurse, the anesthesiologist and the ammonia technician in the endoscopy suite. Mental Status Examination: alert and oriented. Airway Examination: normal oropharyngeal airway and neck mobility. Respiratory Examination: clear to auscultation. CV Examination: normal. Prophylactic Antibiotics: The patient does not require prophylactic antibiotics. Prior Anticoagulants: The patient has taken no previous anticoagulant or antiplatelet agents. ASA Grade Assessment: II - A patient with mild systemic disease. After reviewing the risks and benefits, the patient was deemed in satisfactory condition to undergo the procedure. The anesthesia plan was to use monitored anesthesia care (MAC). Immediately prior to administration of medications, the patient was re-assessed for adequacy to receive sedatives. The heart rate, respiratory rate, oxygen saturations, blood pressure, adequacy of pulmonary ventilation, and response to care were monitored throughout the procedure. The physical status of the patient was re-assessed after the procedure. The Colonoscope was introduced through the anus and advanced to the cecum, identified by appendiceal orifice and ileocecal valve. The colonoscopy was performed without difficulty. The patient tolerated the procedure well. Findings: A less than 5 mm polyp was found in the sigmoid colon. The polyp was hyperplastic. The polyp was removed with a jumbo cold forceps. Resection and retrieval were complete. Estimated blood loss was minimal. Multiple small-mouthed diverticula were found in the sigmoid colon. Non-bleeding internal hemorrhoids were found during retroflexion. The hemorrhoids were mild and Grade II (internal hemorrhoids that prolapse but reduce spontaneously). Impression: - One less than 5 mm polyp in the sigmoid colon, removed with a jumbo cold forceps. Resected and retrieved. - Diverticulosis in the sigmoid colon. - Non-bleeding internal hemorrhoids. Recommendation: - Patient has a contact number available for emergencies. The signs and symptoms of potential delayed complications were discussed with the patient. Return to normal activities tomorrow. Written discharge instructions were provided to the patient. - Await pathology results. - Repeat colonoscopy in 3 - 5 years for surveillance based on pathology results. - Return to my office as previously scheduled. Procedure Code(s): --- Professional --- 28126, Colonoscopy, flexible; with biopsy, single or multiple Diagnosis Code(s): --- Professional --- K64.1, Second degree hemorrhoids K63.5, Polyp of colon K60.3, Anal fistula K57.30, Diverticulosis of large intestine without perforation or abscess without bleeding CPT copyright 2019 [employer]. All rights reserved. The codes documented in this report are preliminary and upon oral and maxillofacial surgery review may be revised to meet current compliance requirements. Mitchell Arnold DO 07/18/2020 11:41:50 AM Electronically signed by Mitchell Bryden , DO Number of Addenda: 0 Note Initiated On: 07/18/2020 11:20 AM Estimated Blood Loss: Estimated blood loss was minimal.
[2020-07-18 12:15] VITALS: BP 152/90
== END 2020-07-18 12:25 | disposition home or self-care (01) ==
LOC: M OPP 10:05
PROVIDERS: ATTEND Surgery
DX: K60.3 Anal fistula (principal); D12.5 Benign neoplasm of sigmoid colon; K57.30 Diverticulosis of large intestine without perforation or abscess without bleeding; K64.1 Second degree hemorrhoids; I10 Essential (primary) hypertension; K21.9 Gastro-esophageal reflux disease without esophagitis; G47.30 Sleep apnea, unspecified; Z79.82 Long term (current) use of aspirin; Z79.899 Other long term (current) drug therapy

== ENCOUNTER 2022-10-19 16:47 | Observation (INO) | payer BC, OTHER ==
[~2022-10-19] VITALS: Ht 177.8 cm; Wt 106.0 kg
[~2022-10-19 16:47] MED LIST changes: +LEVO1TAB39 PO; -LEVO500T3 PO; +LOSA50TA28; +LOSA50TA28 PO; -LOSA50TA88; -LOSA50TA88 PO; -NS 1,000 ML IV ONE; +SENN-111 PO; -SENN18TA PO
[2022-10-19] MEDS ORDERED: GLIP5TAB20 PO (17:15)
[2022-10-19 17:38] LABS: VENOUS BASE EXCESS -0.9 (-2.0-2.0); VENOUS HCO3 26.7 MMOL/L (23.0-27.0); VENOUS O2 SATURATION 78.9 % (60.0-80.0); VENOUS PARTIAL PRESSURE CO2 54.2 mmHg (38.0-50.0); VENOUS PARTIAL PRESSURE O2 43.9 mmHg (30.0-50.0); VENOUS STANDARD HCO3 23.2 MMOL/L; VENOUS TOTAL CO2 28.3 MMOL/L (24.0-28.0)
[2022-10-19 17:46] LABS: BASO % 0.3 % (0.0-1.0); EOS # 0.1 10^3/uL (0.0-0.5); EOS % 1.5 % (0.0-3.0); HEMATOCRIT 48.7 % (42.0-52.0); LYMPH # 2.8 10^3/uL (1.5-5.0); LYMPH % 30.8 % (24.0-44.0); MEAN CORPUSCULAR HEMOGLOBIN 30.4 pg (27.0-33.0); MEAN CORPUSCULAR HGB CONC 34.9 g/dl (32.0-36.5); MEAN CORPUSCULAR VOLUME 87.1 fl (80.0-96.0); MONO # 0.7 10^3/uL (0.0-0.8); NEUTROPHILS # 5.4 10^3/uL (1.5-8.5); NEUTROPHILS % 59.2 % (36.0-66.0); PLATELET COUNT, AUTOMATED 200 10^3/uL (150-450); RED BLOOD COUNT 5.59 10^6/uL (4.30-6.10); WHITE BLOOD COUNT 9.1 10^3/uL (4.0-10.0)
[2022-10-19 18:07] LABS: ETHYL ALCOHOL (ETHANOL) < 0.003 % (0.000-0.010)
[2022-10-19 18:16] LABS: ALBUMIN 4.1 G/DL (3.2-5.2); ALKALINE PHOSPHATASE 70 U/L (46-116); ALT/SGPT 25 U/L (7.0-40); AST/SGOT 26 U/L (<34); BILIRUBIN,DIRECT 0.1 MG/DL (<0.4); BILIRUBIN,TOTAL 0.8 MG/DL (0.3-1.2); BLOOD UREA NITROGEN 20 MG/DL (9-23); CALCIUM LEVEL 8.5 MG/DL (8.3-10.6); CARBON DIOXIDE LEVEL 27 MMOL/L (20-31); CHLORIDE LEVEL 100 MMOL/L (98-107); CK-MB VALUE MASS 4.1 NG/ML (<3.6); CPK CREATINE PHOSPHOKINASE 246 U/L (46-171); GLOMERULAR FILTRATION RATE > 60.0 (>49); GLUCOSE, FASTING 90 MG/DL (74-106); MB/CK RELATIVE INDEX 1.66 (< OR =4); POTASSIUM SERUM 4.3 MMOL/L (3.5-5.1); SODIUM LEVEL 135 MMOL/L (136-145); THYROID STIMULATING HORMONE 3.191 uIU/ML (0.55-4.78); TOTAL PROTEIN 7.8 G/DL (5.7-8.2)
[2022-10-19 18:17] LABS: OSMOLALITY SERUM 290 MOSM/KG (280-301)
[2022-10-19 18:42] LABS: AMPHETAMINES LEVEL URINE NEGATIVE (NEGATIVE)
[2022-10-19 18:43] LABS: BARBITURATES URINE NEGATIVE (NEGATIVE); BENZODIAZEPINES URINE NEGATIVE (NEGATIVE); CANNABINOIDS URINE NEGATIVE (NEGATIVE); COCAINE METABOLITE URINE NEGATIVE (NEGATIVE); METHADONE URINE NEGATIVE (NEGATIVE); OPIATES URINE NEGATIVE (NEGATIVE); PHENCYCLIDINE URINE NEGATIVE (NEGATIVE)
[2022-10-19] MEDS ORDERED: ASPIRIN 81MG CHEW TABLET PO ONE (18:45)
[2022-10-19] MEDS ORDERED: OMEG10002 PO (19:42)
[2022-10-19] MEDS ORDERED: ACET-910 PO (19:42)
[2022-10-19] MEDS ORDERED: HOME MED LIST COMPLETE! XX SCH (19:45)
[2022-10-19] MEDS ORDERED: MAALOX 30 ML SUSP *UDC PO PRN (20:20)
[2022-10-19] MEDS ORDERED: ACETAMINOPHEN TAB 650MG DOSE (2X325MG) PO PRN (20:20)
[2022-10-19] MEDS ORDERED: MOM 30ML SUSPENSION UDC PO PRN (20:20)
[2022-10-19] MEDS ORDERED: DEXTROSE 50% 50ML SYRINGE IV PRN (20:50)
[2022-10-19] MEDS ORDERED: GLUCOSE 4GM CHEW TABLET PO PRN (20:50)
[2022-10-19] MEDS ORDERED: GLUCAGON INJ 1MG VIAL SC PRN (20:50)
[2022-10-19] MEDS: ASPIRIN 81MG ENTERIC TABLET PO SCH (21:00)
[2022-10-19] MEDS ORDERED: ATORVASTATIN 20 MG TAB PO SCH (21:00)
[2022-10-19] MEDS: INSULIN LISPRO (NovoLOG) PER UNIT SC SCH (21:00)
[2022-10-19] MEDS: NEBIVOLOL 5 MG TAB (BYSTOLIC) PO SCH (21:46)
[2022-10-19] MEDS: amLODIPine 5 MG TAB PO SCH (21:47)
[2022-10-19 22:30] VITALS: BP 163/90; TEMP 98.2; O2SAT 97
[2022-10-20 02:40] VITALS: BP 126/71; TEMP 98.1; O2SAT 94
[2022-10-20 05:31] VITALS: BP 136/78; TEMP 97.9; O2SAT 94
[2022-10-20 06:31] LABS: HEMATOCRIT 46.3 % (42.0-52.0); MEAN CORPUSCULAR HEMOGLOBIN 30.2 pg (27.0-33.0); MEAN CORPUSCULAR HGB CONC 34.6 g/dl (32.0-36.5); MEAN CORPUSCULAR VOLUME 87.5 fl (80.0-96.0); PLATELET COUNT, AUTOMATED 184 10^3/uL (150-450); RED BLOOD COUNT 5.29 10^6/uL (4.30-6.10); WHITE BLOOD COUNT 8.4 10^3/uL (4.0-10.0)
[2022-10-20 06:52] LABS: HEMOGLOBIN A1c 6.7 % (4.0-6.0)
[2022-10-20 07:07] LABS: BLOOD UREA NITROGEN 16 MG/DL (9-23); CALCIUM LEVEL 8.5 MG/DL (8.3-10.6); CARBON DIOXIDE LEVEL 28 MMOL/L (20-31); CHLORIDE LEVEL 101 MMOL/L (98-107); CHOLESTEROL LEVEL 224 MG/DL (<200); CREATININE FOR GFR 0.99 MG/DL (0.70-1.30); GLOMERULAR FILTRATION RATE > 60.0 (>49); GLUCOSE, FASTING 134 MG/DL (74-106); MAGNESIUM LEVEL 1.8 MG/DL (1.8-2.4); SODIUM LEVEL 137 MMOL/L (136-145); THYROID STIMULATING HORMONE 1.886 uIU/ML (0.55-4.78); TRIGLYCERIDES LEVEL 246 MG/DL (<150)
[2022-10-20] MEDS: INSULIN LISPRO (NovoLOG) PER UNIT SC SCH ×4 (07:30→20:53)
[2022-10-20] MEDS: hydroCHLOROthiazide 12.5 MG CAPSULE PO SCH (08:05)
[2022-10-20] MEDS: LOSARTAN 50MG TABLET PO SCH (08:06)
[2022-10-20] MEDS: NEBIVOLOL 5 MG TAB (BYSTOLIC) PO SCH ×2 (08:06→20:35)
[2022-10-20] MEDS: amLODIPine 5 MG TAB PO SCH ×2 (08:06→20:35)
[2022-10-20] MEDS: PANTOPRAZOLE 40MG VIAL IV SCH (08:08)
[2022-10-20] MEDS: ENOXAPARIN 40MG/0.4ML SYRINGE (J1650 PER 10MG) SC SCH (08:08)
[2022-10-20 13:32] LABS: CHOLESTEROL RISK RATIO 8.29 (<5); LDL CHOLESTEROL 147.8 MG/DL (<100)
[2022-10-20 14:00] VITALS: BP 133/77; TEMP 98.1; O2SAT 94
[2022-10-20 20:30] VITALS: TEMP 98.1; O2SAT 92
[2022-10-20] MEDS: ASPIRIN 81MG ENTERIC TABLET PO SCH (20:34)
[2022-10-20 20:35] VITALS: BP 154/89; O2SAT 95
[2022-10-20] MEDS ORDERED: ATORVASTATIN 20 MG TAB PO SCH (21:00)
[2022-10-21 05:10] VITALS: BP 125/69; TEMP 98.1; O2SAT 93
[2022-10-21 06:24] LABS: HEMATOCRIT 44.3 % (42.0-52.0); HEMOGLOBIN 15.2 g/dl (13.5-17.5); MEAN CORPUSCULAR HEMOGLOBIN 30.2 pg (27.0-33.0); MEAN CORPUSCULAR HGB CONC 34.3 g/dl (32.0-36.5); MEAN CORPUSCULAR VOLUME 87.9 fl (80.0-96.0); PLATELET COUNT, AUTOMATED 166 10^3/uL (150-450); RED BLOOD COUNT 5.04 10^6/uL (4.30-6.10); WHITE BLOOD COUNT 7.9 10^3/uL (4.0-10.0)
[2022-10-21 06:57] LABS: ALBUMIN 3.2 G/DL (3.2-5.2); ALKALINE PHOSPHATASE 63 U/L (46-116); ALT/SGPT 17 U/L (7.0-40); AST/SGOT < 8 U/L (<34); BILIRUBIN,TOTAL 0.9 MG/DL (0.3-1.2); BLOOD UREA NITROGEN 21 MG/DL (9-23); CALCIUM LEVEL 8.9 MG/DL (8.3-10.6); CARBON DIOXIDE LEVEL 27 MMOL/L (20-31); CHLORIDE LEVEL 102 MMOL/L (98-107); GLOMERULAR FILTRATION RATE > 60.0 (>49); GLUCOSE, FASTING 163 MG/DL (74-106); POTASSIUM SERUM 3.8 MMOL/L (3.5-5.1); SODIUM LEVEL 137 MMOL/L (136-145); TOTAL PROTEIN 6.1 G/DL (5.7-8.2)
[2022-10-21] MEDS: INSULIN LISPRO (NovoLOG) PER UNIT SC SCH ×3 (07:29→12:25)
[2022-10-21] MEDS: amLODIPine 5 MG TAB PO SCH (08:09)
[2022-10-21] MEDS: hydroCHLOROthiazide 12.5 MG CAPSULE PO SCH (08:10)
[2022-10-21] MEDS: NEBIVOLOL 5 MG TAB (BYSTOLIC) PO SCH (08:10)
[2022-10-21 08:11] VITALS: BP 140/81
[2022-10-21] MEDS: LOSARTAN 50MG TABLET PO SCH (08:11)
[2022-10-21] MEDS: PANTOPRAZOLE 40MG VIAL IV SCH (08:11)
[2022-10-21] MEDS: ENOXAPARIN 40MG/0.4ML SYRINGE (J1650 PER 10MG) SC SCH (08:11)
[2022-10-21] MEDS ORDERED: ATOR1TAB21 PO (09:15)
== END 2022-10-21 14:13 | disposition home or self-care (01) ==
LOC: M ED 16:47 → M ED INP 16:48 → ENRESERV 21:57 → M MSPAV 22:24
PROVIDERS: ADMIT Family Medicine; ATTEND Internal Medicine Nephrology
DX: G45.4 Transient global amnesia (principal); I10 Essential (primary) hypertension; E66.9 Obesity, unspecified; G47.33 Obstructive sleep apnea (adult) (pediatric); E11.9 Type 2 diabetes mellitus without complications; K21.9 Gastro-esophageal reflux disease without esophagitis; K76.0 Fatty (change of) liver, not elsewhere classified; K57.92 Diverticulitis of intestine, part unspecified, without perforation or abscess without bleeding; K61.2 Anorectal abscess; Z79.82 Long term (current) use of aspirin; Z79.899 Other long term (current) drug therapy; Z79.84 Long term (current) use of oral hypoglycemic drugs
CPT/HCPCS: 36415; 70450; 70551; 71045; 80048; 80053; 80061; 80076; 80307; 81001; 82077; 82140; 82550; 82553; 82803; 83036; 83605; 83735; 83930; 84443; 84484; 85025; 85027; 87040; 87486; 87581; 87633; 87798; 93005; 93041; 93306; 93880; 94760; 96372; 97161; 97165; 97530; 99285; C9113; J1650; J1815

== ENCOUNTER 2022-12-06 22:15 | Inpatient (IN) | payer BC, OTHER ==
[~2022-12-06] VITALS: Ht 177.8 cm; Wt 109.8 kg
[~2022-12-06 22:15] MED LIST changes: +ACET-910 PO; +ATOR1TAB21 PO; +GLIP5TAB20 PO; +OMEG10002 PO
[2022-12-06 23:05] LABS: RSV AMPLIFICATION NEGATIVE (NEGATIVE)
[2022-12-06 23:10] LABS: BASO % 0.1 % (0.0-1.0); EOS % 0.1 % (0.0-3.0); HEMATOCRIT 41.6 % (42.0-52.0); HEMOGLOBIN 14.7 g/dl (13.5-17.5); LYMPH # 0.7 10^3/uL (1.5-5.0); LYMPH % 5.4 % (24.0-44.0); MEAN CORPUSCULAR HEMOGLOBIN 30.7 pg (27.0-33.0); MEAN CORPUSCULAR HGB CONC 35.3 g/dl (32.0-36.5); MEAN CORPUSCULAR VOLUME 86.8 fl (80.0-96.0); MONO # 0.9 10^3/uL (0.0-0.8); MONO % 6.8 % (2.0-8.0); NEUTROPHILS # 10.9 10^3/uL (1.5-8.5); NEUTROPHILS % 87.3 % (36.0-66.0); PLATELET COUNT, AUTOMATED 208 10^3/uL (150-450); RED BLOOD COUNT 4.79 10^6/uL (4.30-6.10); WHITE BLOOD COUNT 12.5 10^3/uL (4.0-10.0)
[2022-12-06 23:31] LABS: LIPASE 31 U/L (12-53)
[2022-12-06 23:33] LABS: ALBUMIN 3.5 G/DL (3.2-5.2); ALKALINE PHOSPHATASE 68 U/L (46-116); ALT/SGPT 14 U/L (7.0-40); AST/SGOT 13 U/L (<34); BILIRUBIN,DIRECT 0.3 MG/DL (<0.4); BILIRUBIN,TOTAL 0.7 MG/DL (0.3-1.2); BLOOD UREA NITROGEN 19 MG/DL (9-23); CALCIUM LEVEL 8.7 MG/DL (8.3-10.6); CARBON DIOXIDE LEVEL 26 MMOL/L (20-31); CHLORIDE LEVEL 97 MMOL/L (98-107); CREATININE FOR GFR 0.97 MG/DL (0.70-1.30); GLOMERULAR FILTRATION RATE > 60.0 (>49); GLUCOSE, FASTING 177 MG/DL (74-106); POTASSIUM SERUM 4.1 MMOL/L (3.5-5.1); SODIUM LEVEL 135 MMOL/L (136-145); TOTAL PROTEIN 6.9 G/DL (5.7-8.2)
[2022-12-07] VITALS (8 sets, daily range): BP systolic 118–134; BP diastolic 62–74; TEMP 97.5–98.1; O2SAT 91–97
[2022-12-07] MEDS ORDERED: PIPERACILLIN/TAZOBACTAM SOD 3.375 GM in D5W MINI-BAG PLUS 50 ML IV ONE (00:10)
[2022-12-07] MEDS ORDERED: ONDANSETRON 4MG 2ML VIAL IV ONE (00:10)
[2022-12-07] MEDS ORDERED: NS 1,000 ML IV ONE (00:10)
[2022-12-07] MEDS ORDERED: ACETAMINOPHEN *IV* 1,000 MG in IV 1 EA IV ONE (00:10)
[2022-12-07] MEDS ORDERED: ISOVUE-370 76% 100ML VIAL As Ordered ONE (00:33)
[2022-12-07] MEDS ORDERED: MORPHINE 2 MG/ML 1ML VIAL IV ONE (01:35)
[2022-12-07] MEDS ORDERED: ATOR1TAB21 PO (02:14)
[2022-12-07] MEDS ORDERED: VITA100093 PO (02:15)
[2022-12-07] MEDS ORDERED: HOME MED LIST COMPLETE! XX SCH (02:20)
[2022-12-07] MEDS ORDERED: ROCURONIUM BROMIDE 50MG/5ML VIAL As Ordered ONE (03:34)
[2022-12-07] MEDS ORDERED: LIDOCAINE 2% 100MG/5ML SDV (FOR ANES.) As Ordered ONE (03:34)
[2022-12-07] MEDS ORDERED: propofoL 200 MG/20 ML VIAL As Ordered ONE (03:34)
[2022-12-07] MEDS ORDERED: fentaNYL 100 MCG/2 ML INJECTION As Ordered ONE ×2 (03:34→04:26)
[2022-12-07] MEDS ORDERED: MIDAZOLAM INJ 2MG/2ML VIAL As Ordered ONE (03:34)
[2022-12-07] MEDS ORDERED: ONDANSETRON 4MG 2ML VIAL As Ordered ONE (03:37)
[2022-12-07] MEDS ORDERED: SUCCINYLCHOLINE 100MG/5ML SYRINGE As Ordered ONE (04:24)
[2022-12-07] MEDS ORDERED: KETOROLAC 60MG 2ML VIAL As Ordered ONE (04:24)
[2022-12-07] MEDS ORDERED: SUGAMMADEX SODIUM 500 MG/5 ML VIAL (BRIDION) As Ordered ONE (04:24)
[2022-12-07] MEDS ORDERED: ePHEDrine SULFATE 25 MG/5 ML(5MG/ML) SYRINGE As Ordered ONE (04:26)
[2022-12-07] MEDS ORDERED: MORPHINE 4 MG/ML 1ML VIAL IV PRN (06:00)
[2022-12-07] MEDS: INSULIN LISPRO (NovoLOG) PER UNIT SC SCH ×3 (06:00→17:33)
[2022-12-07] MEDS ORDERED: GLUCAGON INJ 1MG VIAL SC PRN (06:00)
[2022-12-07] MEDS ORDERED: DEXTROSE 50% 50ML SYRINGE IV PRN (06:00)
[2022-12-07] MEDS ORDERED: IPRATROPIUM 0.5MG/ALBUTEROL 2.5MG INH SOL UD 3ML (DUONEB) NEB PRN (06:00)
[2022-12-07] MEDS ORDERED: GLUCOSE 4GM CHEW TABLET PO PRN (06:00)
[2022-12-07] MEDS ORDERED: ONDANSETRON 4MG 2ML VIAL IV PRN (06:15)
[2022-12-07] MEDS ORDERED: INSULIN LISPRO (NovoLOG) PER UNIT SC PRN (06:15)
[2022-12-07] MEDS ORDERED: METOCLOPRAMIDE INJ 10MG/2ML VIAL IV PRN (06:15)
[2022-12-07] MEDS ORDERED: diphenhydrAMINE 50MG/ML VIAL IV PRN (06:15)
[2022-12-07] MEDS ORDERED: MEPERIDINE 25 MG/ML 1ML VIAL IV PRN (06:15)
[2022-12-07] MEDS ORDERED: fentaNYL 100 MCG/2 ML INJECTION IV PRN (06:15)
[2022-12-07] MEDS ORDERED: HYDROMORPHONE HCL 0.5 MG/ 0.5 ML SYRINGE IV PRN (06:15)
[2022-12-07] MEDS: NS 1,000 ML IV SCH ×3 (06:28→22:16)
[2022-12-07] MEDS: PIPERACILLIN/TAZOBACTAM SOD 3.375 GM in D5W MINI-BAG PLUS 50 ML IV SCH ×3 (06:29→17:18)
[2022-12-07 06:49] LABS: HEMATOCRIT 39.4 % (42.0-52.0); HEMOGLOBIN 13.7 g/dl (13.5-17.5); MEAN CORPUSCULAR HEMOGLOBIN 30.4 pg (27.0-33.0); MEAN CORPUSCULAR HGB CONC 34.8 g/dl (32.0-36.5); MEAN CORPUSCULAR VOLUME 87.6 fl (80.0-96.0); PLATELET COUNT, AUTOMATED 184 10^3/uL (150-450); WHITE BLOOD COUNT 14.1 10^3/uL (4.0-10.0)
[2022-12-07 07:11] LABS: BLOOD UREA NITROGEN 18 MG/DL (9-23); CALCIUM LEVEL 7.4 MG/DL (8.3-10.6); CARBON DIOXIDE LEVEL 20 MMOL/L (20-31); CHLORIDE LEVEL 103 MMOL/L (98-107); CREATININE FOR GFR 0.96 MG/DL (0.70-1.30); GLOMERULAR FILTRATION RATE > 60.0 (>49); GLUCOSE, FASTING 179 MG/DL (74-106); POTASSIUM SERUM 4.2 MMOL/L (3.5-5.1); SODIUM LEVEL 137 MMOL/L (136-145)
[2022-12-07] MEDS: IPRATROPIUM 0.5MG/ALBUTEROL 2.5MG INH SOL UD 3ML (DUONEB) NEB SCH ×3 (08:24→19:13)
[2022-12-07] MEDS: MORPHINE 2 MG/ML 1ML VIAL IV PRN ×2 (09:30→14:15)
[2022-12-07] MEDS: PANTOPRAZOLE 40MG VIAL IV SCH (09:36)
[2022-12-07] MEDS: ALVIMOPAN 12 MG CAPSULE (ENTEREG) PO SCH ×2 (09:40→20:11)
[2022-12-07] MEDS: KETOROLAC 30 MG/ML 1ML VIAL IV SCH ×2 (12:03→17:18)
[2022-12-07] MEDS: MORPHINE 4 MG/ML 1ML VIAL IV PRN (22:15)
[2022-12-08] VITALS (8 sets, daily range): BP systolic 125–173; BP diastolic 71–87; TEMP 97.7–98.1; O2SAT 85–95
[2022-12-08] MEDS: PIPERACILLIN/TAZOBACTAM SOD 3.375 GM in D5W MINI-BAG PLUS 50 ML IV SCH ×4 (00:16→17:44)
[2022-12-08] MEDS: KETOROLAC 30 MG/ML 1ML VIAL IV SCH ×4 (00:16→17:44)
[2022-12-08] MEDS: ONDANSETRON 4MG 2ML VIAL IV PRN (00:20)
[2022-12-08] MEDS: INSULIN LISPRO (NovoLOG) PER UNIT SC SCH ×4 (00:21→17:00)
[2022-12-08] MEDS: IPRATROPIUM 0.5MG/ALBUTEROL 2.5MG INH SOL UD 3ML (DUONEB) NEB SCH ×4 (02:59→21:07)
[2022-12-08] MEDS: NS 1,000 ML IV SCH ×3 (05:36→20:58)
[2022-12-08 05:51] LABS: HEMATOCRIT 36.4 % (42.0-52.0); HEMOGLOBIN 12.6 g/dl (13.5-17.5); MEAN CORPUSCULAR HEMOGLOBIN 30.7 pg (27.0-33.0); MEAN CORPUSCULAR HGB CONC 34.6 g/dl (32.0-36.5); MEAN CORPUSCULAR VOLUME 88.8 fl (80.0-96.0); PLATELET COUNT, AUTOMATED 186 10^3/uL (150-450); WHITE BLOOD COUNT 10.4 10^3/uL (4.0-10.0)
[2022-12-08 06:15] LABS: BLOOD UREA NITROGEN 19 MG/DL (9-23); CALCIUM LEVEL 7.7 MG/DL (8.3-10.6); CARBON DIOXIDE LEVEL 23 MMOL/L (20-31); CHLORIDE LEVEL 107 MMOL/L (98-107); CREATININE FOR GFR 0.85 MG/DL (0.70-1.30); GLOMERULAR FILTRATION RATE > 60.0 (>49); GLUCOSE, FASTING 143 MG/DL (74-106); POTASSIUM SERUM 3.9 MMOL/L (3.5-5.1); SODIUM LEVEL 141 MMOL/L (136-145)
[2022-12-08] MEDS: PANTOPRAZOLE 40MG VIAL IV SCH (09:13)
[2022-12-08] MEDS: MORPHINE 2 MG/ML 1ML VIAL IV PRN ×2 (09:13→15:45)
[2022-12-08] MEDS ORDERED: INFLUENZA QUADRIVALENT PF VACCINE 0.5ML SYRINGE IM.IMMUN ONE (12:00)
[2022-12-08] MEDS: ALVIMOPAN 12 MG CAPSULE (ENTEREG) PO SCH ×2 (13:18→20:58)
[2022-12-08] MEDS: MORPHINE 4 MG/ML 1ML VIAL IV PRN (20:59)
[2022-12-09] MEDS: INSULIN LISPRO (NovoLOG) PER UNIT SC SCH ×4 (00:14→17:57)
[2022-12-09] MEDS: KETOROLAC 30 MG/ML 1ML VIAL IV SCH ×4 (00:15→17:55)
[2022-12-09] MEDS: PIPERACILLIN/TAZOBACTAM SOD 3.375 GM in D5W MINI-BAG PLUS 50 ML IV SCH ×4 (00:15→17:56)
[2022-12-09] MEDS: IPRATROPIUM 0.5MG/ALBUTEROL 2.5MG INH SOL UD 3ML (DUONEB) NEB SCH ×4 (01:17→20:08)
[2022-12-09 01:29] VITALS: BP 145/70; TEMP 97.8; O2SAT 94
[2022-12-09] MEDS: NS 1,000 ML IV SCH ×2 (05:00→12:51)
[2022-12-09] MEDS: ONDANSETRON 4MG 2ML VIAL IV PRN ×3 (05:01→19:38)
[2022-12-09 05:55] VITALS: BP 148/72; TEMP 97.9; O2SAT 94
[2022-12-09 06:07] LABS: HEMATOCRIT 36.8 % (42.0-52.0); HEMOGLOBIN 12.7 g/dl (13.5-17.5); MEAN CORPUSCULAR HEMOGLOBIN 30.8 pg (27.0-33.0); MEAN CORPUSCULAR HGB CONC 34.5 g/dl (32.0-36.5); MEAN CORPUSCULAR VOLUME 89.3 fl (80.0-96.0); PLATELET COUNT, AUTOMATED 196 10^3/uL (150-450); RED BLOOD COUNT 4.12 10^6/uL (4.30-6.10); WHITE BLOOD COUNT 9.6 10^3/uL (4.0-10.0)
[2022-12-09 06:34] LABS: BLOOD UREA NITROGEN 19 MG/DL (9-23); CALCIUM LEVEL 7.7 MG/DL (8.3-10.6); CARBON DIOXIDE LEVEL 23 MMOL/L (20-31); CHLORIDE LEVEL 109 MMOL/L (98-107); CREATININE FOR GFR 0.74 MG/DL (0.70-1.30); GLOMERULAR FILTRATION RATE > 60.0 (>49); GLUCOSE, FASTING 111 MG/DL (74-106); POTASSIUM SERUM 3.9 MMOL/L (3.5-5.1); SODIUM LEVEL 144 MMOL/L (136-145)
[2022-12-09] MEDS: ALVIMOPAN 12 MG CAPSULE (ENTEREG) PO SCH ×2 (08:47→19:39)
[2022-12-09] MEDS: PANTOPRAZOLE 40MG VIAL IV SCH (08:47)
[2022-12-09 10:00] VITALS: BP 158/76; TEMP 97.7; O2SAT 92
[2022-12-09 14:00] VITALS: BP 152/82; TEMP 97.5; O2SAT 91
[2022-12-09 18:00] VITALS: BP 164/82; TEMP 97.7; O2SAT 90
[2022-12-09] MEDS ORDERED: PROCHLORPERAZINE 5MG TAB PO PRN (23:50)
[2022-12-10] MEDS: KETOROLAC 30 MG/ML 1ML VIAL IV SCH ×4 (00:01→17:42)
[2022-12-10] MEDS ORDERED: PROCHLORPERAZINE 10MG 2ML VIAL IV PRN (00:05)
[2022-12-10] MEDS: NS 1,000 ML IV SCH ×3 (00:10→17:43)
[2022-12-10] MEDS: PIPERACILLIN/TAZOBACTAM SOD 3.375 GM in D5W MINI-BAG PLUS 50 ML IV SCH ×4 (00:10→17:43)
[2022-12-10] MEDS: IPRATROPIUM 0.5MG/ALBUTEROL 2.5MG INH SOL UD 3ML (DUONEB) NEB SCH ×4 (01:43→19:09)
[2022-12-10 02:00] VITALS: BP 164/80; TEMP 97.9; O2SAT 91
[2022-12-10] MEDS: ONDANSETRON 4MG 2ML VIAL IV PRN (05:37)
[2022-12-10] MEDS: INSULIN LISPRO (NovoLOG) PER UNIT SC SCH ×4 (05:38→17:42)
[2022-12-10 06:00] VITALS: BP 150/70; TEMP 97.5; O2SAT 90
[2022-12-10 06:07] LABS: HEMATOCRIT 38.1 % (42.0-52.0); MEAN CORPUSCULAR HEMOGLOBIN 30.4 pg (27.0-33.0); MEAN CORPUSCULAR HGB CONC 34.1 g/dl (32.0-36.5); MEAN CORPUSCULAR VOLUME 89.2 fl (80.0-96.0); PLATELET COUNT, AUTOMATED 197 10^3/uL (150-450); RED BLOOD COUNT 4.27 10^6/uL (4.30-6.10)
[2022-12-10 06:25] LABS: BLOOD UREA NITROGEN 12 MG/DL (9-23); CALCIUM LEVEL 7.8 MG/DL (8.3-10.6); CARBON DIOXIDE LEVEL 24 MMOL/L (20-31); CHLORIDE LEVEL 108 MMOL/L (98-107); CREATININE FOR GFR 0.72 MG/DL (0.70-1.30); GLOMERULAR FILTRATION RATE > 60.0 (>49); GLUCOSE, FASTING 129 MG/DL (74-106); SODIUM LEVEL 143 MMOL/L (136-145)
[2022-12-10] MEDS: ALVIMOPAN 12 MG CAPSULE (ENTEREG) PO SCH ×2 (08:14→19:54)
[2022-12-10] MEDS: PANTOPRAZOLE 40MG VIAL IV SCH (08:14)
[2022-12-10 10:00] VITALS: BP 182/90; TEMP 97.5; O2SAT 89
[2022-12-10] MEDS: NEBIVOLOL 5 MG TAB (BYSTOLIC) PO SCH ×2 (11:39→19:55)
[2022-12-10] MEDS: amLODIPine 5 MG TAB PO SCH ×2 (11:40→19:55)
[2022-12-10] MEDS: LOSARTAN 50MG TABLET PO SCH (11:41)
[2022-12-10 14:00] VITALS: BP 178/82; TEMP 97.5; O2SAT 94
[2022-12-10 21:30] VITALS: BP 172/80; TEMP 97.7; O2SAT 97
[2022-12-11] VITALS (8 sets, daily range): BP systolic 140–168; BP diastolic 72–90; TEMP 97.3–97.9; O2SAT 90–97
[2022-12-11] MEDS: KETOROLAC 30 MG/ML 1ML VIAL IV SCH ×5 (00:11→23:52)
[2022-12-11] MEDS: INSULIN LISPRO (NovoLOG) PER UNIT SC SCH ×5 (00:11→23:52)
[2022-12-11] MEDS: PIPERACILLIN/TAZOBACTAM SOD 3.375 GM in D5W MINI-BAG PLUS 50 ML IV SCH ×5 (00:12→23:52)
[2022-12-11] MEDS: IPRATROPIUM 0.5MG/ALBUTEROL 2.5MG INH SOL UD 3ML (DUONEB) NEB SCH ×4 (00:51→20:14)
[2022-12-11] MEDS: NS 1,000 ML IV SCH ×2 (03:57→06:00)
[2022-12-11 06:12] LABS: HEMATOCRIT 35.6 % (42.0-52.0); HEMOGLOBIN 12.3 g/dl (13.5-17.5); MEAN CORPUSCULAR HEMOGLOBIN 30.4 pg (27.0-33.0); MEAN CORPUSCULAR HGB CONC 34.6 g/dl (32.0-36.5); MEAN CORPUSCULAR VOLUME 88.1 fl (80.0-96.0); PLATELET COUNT, AUTOMATED 201 10^3/uL (150-450); RED BLOOD COUNT 4.04 10^6/uL (4.30-6.10); WHITE BLOOD COUNT 7.3 10^3/uL (4.0-10.0)
[2022-12-11 06:43] LABS: BLOOD UREA NITROGEN 9 MG/DL (9-23); CALCIUM LEVEL 7.8 MG/DL (8.3-10.6); CARBON DIOXIDE LEVEL 26 MMOL/L (20-31); CHLORIDE LEVEL 103 MMOL/L (98-107); CREATININE FOR GFR 0.63 MG/DL (0.70-1.30); GLOMERULAR FILTRATION RATE > 60.0 (>49); GLUCOSE, FASTING 110 MG/DL (74-106); POTASSIUM SERUM 3.5 MMOL/L (3.5-5.1); SODIUM LEVEL 138 MMOL/L (136-145)
[2022-12-11] MEDS: PANTOPRAZOLE 40MG VIAL IV SCH (09:39)
[2022-12-11] MEDS: ALVIMOPAN 12 MG CAPSULE (ENTEREG) PO SCH ×2 (09:40→19:50)
[2022-12-11] MEDS: hydroCHLOROthiazide 12.5 MG CAPSULE PO SCH (09:41)
[2022-12-11] MEDS: LOSARTAN 50MG TABLET PO SCH (09:41)
[2022-12-11] MEDS: amLODIPine 5 MG TAB PO SCH ×2 (09:42→19:50)
[2022-12-11] MEDS: NEBIVOLOL 5 MG TAB (BYSTOLIC) PO SCH ×2 (10:08→19:50)
[2022-12-12] MEDS: IPRATROPIUM 0.5MG/ALBUTEROL 2.5MG INH SOL UD 3ML (DUONEB) NEB SCH ×2 (00:50→07:07)
[2022-12-12 02:00] VITALS: BP 158/76; TEMP 97.9; O2SAT 91
[2022-12-12 05:40] VITALS: BP 152/80; TEMP 97.9; O2SAT 92
[2022-12-12 06:00] LABS: HEMATOCRIT 34.7 % (42.0-52.0); HEMOGLOBIN 12.3 g/dl (13.5-17.5); MEAN CORPUSCULAR HEMOGLOBIN 30.7 pg (27.0-33.0); MEAN CORPUSCULAR HGB CONC 35.4 g/dl (32.0-36.5); MEAN CORPUSCULAR VOLUME 86.5 fl (80.0-96.0); PLATELET COUNT, AUTOMATED 200 10^3/uL (150-450); RED BLOOD COUNT 4.01 10^6/uL (4.30-6.10); WHITE BLOOD COUNT 7.6 10^3/uL (4.0-10.0)
[2022-12-12] MEDS: PIPERACILLIN/TAZOBACTAM SOD 3.375 GM in D5W MINI-BAG PLUS 50 ML IV SCH (06:10)
[2022-12-12] MEDS: KETOROLAC 30 MG/ML 1ML VIAL IV SCH (06:11)
[2022-12-12] MEDS: INSULIN LISPRO (NovoLOG) PER UNIT SC SCH (06:11)
[2022-12-12 06:23] LABS: BLOOD UREA NITROGEN 10 MG/DL (9-23); CALCIUM LEVEL 7.9 MG/DL (8.3-10.6); CARBON DIOXIDE LEVEL 28 MMOL/L (20-31); CHLORIDE LEVEL 100 MMOL/L (98-107); CREATININE FOR GFR 0.67 MG/DL (0.70-1.30); GLOMERULAR FILTRATION RATE > 60.0 (>49); GLUCOSE, FASTING 152 MG/DL (74-106); POTASSIUM SERUM 3.4 MMOL/L (3.5-5.1); SODIUM LEVEL 136 MMOL/L (136-145)
[2022-12-12 08:28] VITALS: BP 156/88
[2022-12-12] MEDS: LOSARTAN 50MG TABLET PO SCH (08:28)
[2022-12-12] MEDS: amLODIPine 5 MG TAB PO SCH (08:28)
[2022-12-12] MEDS: NEBIVOLOL 5 MG TAB (BYSTOLIC) PO SCH (08:28)
[2022-12-12] MEDS: hydroCHLOROthiazide 12.5 MG CAPSULE PO SCH (08:28)
[2022-12-12] MEDS: PANTOPRAZOLE 40MG VIAL IV SCH (08:29)
[2022-12-12] MEDS: ALVIMOPAN 12 MG CAPSULE (ENTEREG) PO SCH (08:31)
[2022-12-12] MEDS ORDERED: TRAM50TA2 PO (10:23)
[2022-12-12] MEDS ORDERED: IBUP-1022 PO (10:23)
== END 2022-12-12 12:43 | disposition home or self-care (01) | DRG 221 ==
LOC: M ED 22:15 → M SDC 12-07 02:40 → M RR INP 12-07 05:57 → M MSPAV 12-07 07:46
PROVIDERS: ADMIT Surgery; ATTEND Surgery
PROC: 0D1N0Z4 Bypass Sigmoid Colon to Cutaneous, Open Approach (ICD-10-PCS; 2022-12-07)
PROC: 0DTN0ZZ Resection of Sigmoid Colon, Open Approach (ICD-10-PCS; principal; 2022-12-07 03:00)
DX: K57.20 Diverticulitis of large intestine with perforation and abscess without bleeding (principal); I10 Essential (primary) hypertension; E11.9 Type 2 diabetes mellitus without complications; G47.33 Obstructive sleep apnea (adult) (pediatric); Z93.3 Colostomy status

== ENCOUNTER 2023-04-03 06:19 | Inpatient (IN) | payer BC, OTHER ==
[2023-04-03] VITALS (8 sets, daily range): BP systolic 111–149; BP diastolic 62–84; TEMP 96.6–97.7; O2SAT 94–98
[~2023-04-03] VITALS: Ht 177.8 cm; Wt 100.9 kg
[2023-04-03] MEDS: metroNIDAZOLE 500 MG in IV 1 EA IV ONE (06:00)
[~2023-04-03 06:19] MED LIST changes: +IBUP-1022 PO; +TRAM50TA2 PO; +UNRESOLVED CLARIFICATION ENTRY XX SCH; +VITA100093 PO
[2023-04-03] MEDS ORDERED: LR 1,000 ML IV SCH ×2 (06:55→10:10)
[2023-04-03] MEDS ORDERED: LIDOCAINE 2% 100MG/5ML SDV (FOR ANES.) As Ordered ONE (07:17)
[2023-04-03] MEDS ORDERED: ROCURONIUM BROMIDE 50MG/5ML VIAL As Ordered ONE (07:17)
[2023-04-03] MEDS ORDERED: fentaNYL 100 MCG/2 ML INJECTION As Ordered ONE (07:17)
[2023-04-03] MEDS ORDERED: propofoL 200 MG/20 ML VIAL As Ordered ONE (07:17)
[2023-04-03] MEDS ORDERED: ONDANSETRON 4MG 2ML VIAL As Ordered ONE (07:17)
[2023-04-03] MEDS ORDERED: MIDAZOLAM INJ 2MG/2ML VIAL As Ordered ONE (07:17)
[2023-04-03] MEDS ORDERED: SUGAMMADEX SODIUM 500 MG/5 ML VIAL (BRIDION) As Ordered ONE (07:18)
[2023-04-03] MEDS ORDERED: KETOROLAC 60MG 2ML VIAL As Ordered ONE (07:18)
[2023-04-03] MEDS ORDERED: ACETAMINOPHEN 1000MG 100ML IV BAG As Ordered ONE (07:18)
[2023-04-03] MEDS: GLUCAGON INJ 1MG VIAL As Ordered ONE (08:43)
[2023-04-03] MEDS ORDERED: MORPHINE 4 MG/ML 1ML VIAL IV PRN (10:05)
[2023-04-03] MEDS ORDERED: IPRATROPIUM 0.5MG/ALBUTEROL 2.5MG INH SOL UD 3ML (DUONEB) NEB PRN (10:05)
[2023-04-03] MEDS ORDERED: DEXTROSE 50% 50ML SYRINGE IV PRN (10:10)
[2023-04-03] MEDS ORDERED: GLUCAGON INJ 1MG VIAL SC PRN (10:10)
[2023-04-03] MEDS ORDERED: GLUCOSE 4GM CHEW TABLET PO PRN (10:10)
[2023-04-03] MEDS ORDERED: ONDANSETRON 4MG 2ML VIAL IV PRN (10:10)
[2023-04-03] MEDS ORDERED: fentaNYL 100 MCG/2 ML INJECTION IV PRN (10:10)
[2023-04-03] MEDS: ONDANSETRON 4MG 2ML VIAL IV PRN (11:25)
[2023-04-03] MEDS: NS 1,000 ML IV SCH (11:25)
[2023-04-03] MEDS: IPRATROPIUM 0.5MG/ALBUTEROL 2.5MG INH SOL UD 3ML (DUONEB) NEB SCH (11:56)
[2023-04-03] MEDS: INSULIN LISPRO (NovoLOG) PER UNIT SC SCH (12:00)
[2023-04-03] MEDS: PANTOPRAZOLE 40MG VIAL IV SCH (12:17)
[2023-04-03] MEDS: ALVIMOPAN 12 MG CAPSULE (ENTEREG) PO SCH (12:19)
[2023-04-03] MEDS: MORPHINE 2 MG/ML 1ML VIAL IV PRN ×2 (12:43→21:34)
[2023-04-03] MEDS: KETOROLAC 30 MG/ML 1ML VIAL IV SCH (15:52)
[2023-04-03] MEDS: ceFAZolin SOD 1 GM in D5W MINI-BAG PLUS 50 ML IV SCH (15:53)
[2023-04-03] MEDS: ceFAZolin SOD 2 GM in IV 1 EA IV ONE (16:19)
[2023-04-03] MEDS: metroNIDAZOLE 500 MG in IV 1 EA IV SCH (17:31)
[2023-04-03] MEDS: NEBIVOLOL 5 MG TAB (BYSTOLIC) PO SCH (20:06)
[2023-04-03] MEDS: ATORVASTATIN 20 MG TAB PO SCH (20:06)
[2023-04-03] MEDS: amLODIPine 5 MG TAB PO SCH (20:07)
[2023-04-04] VITALS: BP 145/79; TEMP 97.3; O2SAT 92
[2023-04-04 04:00] VITALS: BP 144/78; TEMP 97.7; O2SAT 95
[2023-04-04 06:05] LABS: HEMATOCRIT 40.3 % (42.0-52.0); HEMOGLOBIN 13.7 g/dl (13.5-17.5); MEAN CORPUSCULAR HEMOGLOBIN 29.1 pg (27.0-33.0); MEAN CORPUSCULAR VOLUME 85.7 fl (80.0-96.0); PLATELET COUNT, AUTOMATED 175 10^3/uL (150-450); WHITE BLOOD COUNT 12.9 10^3/uL (4.0-10.0)
[2023-04-04 06:29] LABS: BLOOD UREA NITROGEN 28 MG/DL (9-23); CARBON DIOXIDE LEVEL 25 MMOL/L (20-31); CHLORIDE LEVEL 103 MMOL/L (98-107); CREATININE FOR GFR 1.01 MG/DL (0.70-1.30); GLOMERULAR FILTRATION RATE > 60.0 (>49); GLUCOSE, FASTING 164 MG/DL (74-106); POTASSIUM SERUM 4.3 MMOL/L (3.5-5.1); SODIUM LEVEL 136 MMOL/L (136-145)
[2023-04-04] MEDS: hydroCHLOROthiazide 12.5 MG CAPSULE PO SCH (08:32)
[2023-04-04] MEDS: LOSARTAN 50MG TABLET PO SCH (08:37)
[2023-04-04 10:14] VITALS: BP_SYST 124; BP_SYST 125; BP_DIAS 69; TEMP 98.2; O2SAT 94; O2SAT 95
[2023-04-04] MEDS ORDERED: METOCLOPRAMIDE INJ 10MG/2ML VIAL IV PRN (11:30)
[2023-04-04 14:20] VITALS: BP 149/78; TEMP 98.1; O2SAT 94
[2023-04-04 18:01] VITALS: BP 148/78; TEMP 98.6; O2SAT 94
[2023-04-04 20:00] VITALS: BP 150/79; TEMP 98.6; O2SAT 94
[2023-04-05] VITALS (7 sets, daily range): BP systolic 136–175; BP diastolic 70–96; TEMP 97.2–98.9; O2SAT 93–98
[2023-04-05 06:39] LABS: HEMATOCRIT 37.8 % (42.0-52.0); MEAN CORPUSCULAR HEMOGLOBIN 30.2 pg (27.0-33.0); MEAN CORPUSCULAR HGB CONC 34.4 g/dl (32.0-36.5); MEAN CORPUSCULAR VOLUME 87.7 fl (80.0-96.0); PLATELET COUNT, AUTOMATED 154 10^3/uL (150-450); RED BLOOD COUNT 4.31 10^6/uL (4.30-6.10); WHITE BLOOD COUNT 8.7 10^3/uL (4.0-10.0)
[2023-04-05 06:54] LABS: BLOOD UREA NITROGEN 20 MG/DL (9-23); CALCIUM LEVEL 7.7 MG/DL (8.3-10.6); CARBON DIOXIDE LEVEL 24 MMOL/L (20-31); CHLORIDE LEVEL 107 MMOL/L (98-107); CREATININE FOR GFR 0.78 MG/DL (0.70-1.30); GLOMERULAR FILTRATION RATE > 60.0 (>49); GLUCOSE, FASTING 110 MG/DL (74-106); SODIUM LEVEL 139 MMOL/L (136-145)
[2023-04-06] VITALS: BP 152/79; TEMP 97.8; O2SAT 98
[2023-04-06 04:01] VITALS: BP 151/79; TEMP 97.7; O2SAT 96
[2023-04-06 05:47] LABS: HEMATOCRIT 37.6 % (42.0-52.0); HEMOGLOBIN 12.6 g/dl (13.5-17.5); MEAN CORPUSCULAR HEMOGLOBIN 28.9 pg (27.0-33.0); MEAN CORPUSCULAR HGB CONC 33.5 g/dl (32.0-36.5); MEAN CORPUSCULAR VOLUME 86.2 fl (80.0-96.0); PLATELET COUNT, AUTOMATED 141 10^3/uL (150-450); RED BLOOD COUNT 4.36 10^6/uL (4.30-6.10); WHITE BLOOD COUNT 7.5 10^3/uL (4.0-10.0)
[2023-04-06 06:13] LABS: BLOOD UREA NITROGEN 10 MG/DL (9-23); CALCIUM LEVEL 7.9 MG/DL (8.3-10.6); CARBON DIOXIDE LEVEL 28 MMOL/L (20-31); CHLORIDE LEVEL 104 MMOL/L (98-107); CREATININE FOR GFR 0.73 MG/DL (0.70-1.30); GLOMERULAR FILTRATION RATE > 60.0 (>49); GLUCOSE, FASTING 107 MG/DL (74-106); POTASSIUM SERUM 3.8 MMOL/L (3.5-5.1); SODIUM LEVEL 137 MMOL/L (136-145)
[2023-04-06 10:00] VITALS: BP 155/91; TEMP 97.9; O2SAT 97
[2023-04-06 14:00] VITALS: BP 129/72; TEMP 97.7; O2SAT 96
[2023-04-06 18:00] VITALS: BP 164/97; TEMP 97.7; O2SAT 98
[2023-04-06 20:28] VITALS: TEMP 97.9; O2SAT 96
[2023-04-07 01:48] VITALS: BP 146/84; TEMP 97.7; O2SAT 96
[2023-04-07 05:22] VITALS: BP 147/83; TEMP 97.9; O2SAT 97
[2023-04-07 06:15] LABS: HEMATOCRIT 38.7 % (42.0-52.0); HEMOGLOBIN 13.6 g/dl (13.5-17.5); MEAN CORPUSCULAR HEMOGLOBIN 29.8 pg (27.0-33.0); MEAN CORPUSCULAR HGB CONC 35.1 g/dl (32.0-36.5); MEAN CORPUSCULAR VOLUME 84.7 fl (80.0-96.0); PLATELET COUNT, AUTOMATED 150 10^3/uL (150-450); RED BLOOD COUNT 4.57 10^6/uL (4.30-6.10); WHITE BLOOD COUNT 6.7 10^3/uL (4.0-10.0)
[2023-04-07 06:42] LABS: BLOOD UREA NITROGEN 11 MG/DL (9-23); CALCIUM LEVEL 8.3 MG/DL (8.3-10.6); CARBON DIOXIDE LEVEL 30 MMOL/L (20-31); CHLORIDE LEVEL 104 MMOL/L (98-107); CREATININE FOR GFR 0.69 MG/DL (0.70-1.30); GLOMERULAR FILTRATION RATE > 60.0 (>49); GLUCOSE, FASTING 147 MG/DL (74-106); POTASSIUM SERUM 3.6 MMOL/L (3.5-5.1); SODIUM LEVEL 138 MMOL/L (136-145)
[2023-04-07 08:46] VITALS: BP 147/83
[2023-04-07] MEDS ORDERED: IBUP-1022 PO (09:18)
[2023-04-07 10:00] VITALS: BP 149/82; TEMP 98.2; O2SAT 98
== END 2023-04-07 11:48 | disposition home or self-care (01) | DRG 221 ==
LOC: M OR 06:19 → EDSTATUS 07:30 → M MSPAV 11:14
PROVIDERS: ADMIT Surgery; ATTEND Surgery
PROC: 0DBP4ZZ Excision of Rectum, Percutaneous Endoscopic Approach (ICD-10-PCS; principal; 2023-04-03 07:30)
PROC: 0WQF4ZZ Repair Abdominal Wall, Percutaneous Endoscopic Approach (ICD-10-PCS; 2023-04-03 07:30)
DX: Z43.3 Encounter for attention to colostomy (principal); Z68.31 Body mass index [BMI] 31.0-31.9, adult; K76.0 Fatty (change of) liver, not elsewhere classified; I10 Essential (primary) hypertension; E11.9 Type 2 diabetes mellitus without complications; G47.33 Obstructive sleep apnea (adult) (pediatric); K21.9 Gastro-esophageal reflux disease without esophagitis; K57.90 Diverticulosis of intestine, part unspecified, without perforation or abscess without bleeding; K43.5 Parastomal hernia without obstruction or gangrene; Z79.899 Other long term (current) drug therapy; Z79.82 Long term (current) use of aspirin

== ENCOUNTER → 2024-03-11 | Outpatient (CLI) | payer BC, OTHER ==
[~2024-03-11] MED LIST changes: -BYST10TA2 PO; +BYST1TAB3 PO; +ONDA-282 PO; -ONDA4TAB6 PO; -SENN-111 PO; +SENN-165 PO; -UNRESOLVED CLARIFICATION ENTRY XX SCH
[2024-03-11 12:51] LABS: APPEARANCE, URINE CLEAR (CLEAR); BACTERIA, URINE AUTO NEGATIVE (NEGATIVE); BILIRUBIN, URINE AUTO NEGATIVE (NEGATIVE); BLOOD, URINE BLOOD NEGATIVE (NEGATIVE); COLOR, URINE YELLOW (YELLOW); GLUCOSE, URINE (UA) AUTO 3+ mg/dL (NEGATIVE); KETONE, URINE AUTO NEGATIVE (NEGATIVE); LEUKOCYTE ESTERASE, URINE AUTO NEGATIVE (NEGATIVE); MUCUS, URINE SMALL (NEGATIVE); NITRITE, URINE AUTO NEGATIVE (NEGATIVE); PROTEIN, URINE AUTO NEGATIVE (NEGATIVE); RBC, URINE AUTO 0 /HPF (0-3); SPECIFIC GRAVITY URINE AUTO 1.032 (1.002-1.035); SQUAMOUS EPITHELIAL CELL UR AU 0 /HPF (0-6); UROBILINOGEN, URINE AUTO 0.2 mg/dL (0.0-2.0); WBC, URINE AUTO 0 /HPF (0-3)
[2024-03-11 13:00] LABS: BASO % 0.3 % (0.0-1.0); EOS # 0.1 10^3/uL (0.0-0.5); EOS % 0.9 % (0.0-3.0); HEMATOCRIT 46.5 % (42.0-52.0); LYMPH # 2.3 10^3/uL (1.5-5.0); LYMPH % 26.1 % (24.0-44.0); MEAN CORPUSCULAR HEMOGLOBIN 30.2 pg (27.0-33.0); MEAN CORPUSCULAR HGB CONC 34.4 g/dl (32.0-36.5); MEAN CORPUSCULAR VOLUME 87.7 fl (80.0-96.0); MONO # 0.7 10^3/uL (0.0-0.8); MONO % 7.9 % (2.0-8.0); NEUTROPHILS # 5.6 10^3/uL (1.5-8.5); NEUTROPHILS % 64.6 % (36.0-66.0); PLATELET COUNT, AUTOMATED 199 10^3/uL (150-450); WHITE BLOOD COUNT 8.6 10^3/uL (4.0-10.0)
[2024-03-11 13:27] LABS: ALBUMIN 3.9 G/DL (3.2-5.2); ALKALINE PHOSPHATASE 74 U/L (40-129); ALT/SGPT 22 U/L (7.0-40); AST/SGOT 15 U/L (<34); BILIRUBIN,TOTAL 1.1 MG/DL (0.3-1.2); BLOOD UREA NITROGEN 17 MG/DL (9-23); CARBON DIOXIDE LEVEL 30 MMOL/L (20-31); CHLORIDE LEVEL 102 MMOL/L (98-107); CHOLESTEROL LEVEL 124 MG/DL (<200); CREATININE FOR GFR 0.99 MG/DL (0.70-1.30); GLOMERULAR FILTRATION RATE > 60.0 (>49); GLUCOSE, FASTING 104 MG/DL (74-106); HDL CHOLESTEROL 37.5 MG/DL (>40); LDL CHOLESTEROL 68.1 MG/DL (<100); NON-HDL-C 86.5 MG/DL; POTASSIUM SERUM 4.5 MMOL/L (3.5-5.1); PROSTATIC SPECIFIC AG MONITOR 0.43 NG/ML (< 4.00); SODIUM LEVEL 142 MMOL/L (136-145); TRIGLYCERIDES LEVEL 92 MG/DL (<150)
[2024-03-11 13:31] LABS: TOTAL 25(OH) VITAMIN D 79.5 NG/ML (20.0-100.0)
== END ==
LOC: M LAB 11:55
PROVIDERS: ATTEND Internal Medicine
DX: E11.65 Type 2 diabetes mellitus with hyperglycemia (principal)

== ENCOUNTER → 2024-03-31 | Outpatient (CLI) | payer BC, OTHER ==
[~2024-03-31] MED LIST changes: +GASTROGRAFIN SOLUTION 30ML As Ordered ONE; +ISOVUE-370 76% 100ML VIAL As Ordered ONE
== END ==
LOC: M RAD 07:15
PROVIDERS: ATTEND Surgery
DX: K43.2 Incisional hernia without obstruction or gangrene (principal)
CPT/HCPCS: 74177; Q9963; Q9967

== ENCOUNTER → 2024-06-28 | Outpatient (CLI) | payer BC ==
[~2024-06-28] MED LIST changes: +ATOR1TAB19 PO; -GASTROGRAFIN SOLUTION 30ML As Ordered ONE; +GLIP-318 PO; -GLIP5TAB20 PO; -ISOVUE-370 76% 100ML VIAL As Ordered ONE; +SEMA1PEN2 SQ
[2024-06-28 12:12] LABS: APPEARANCE, URINE CLEAR (CLEAR); BACTERIA, URINE AUTO NEGATIVE (NEGATIVE); BILIRUBIN, URINE AUTO NEGATIVE (NEGATIVE); BLOOD, URINE BLOOD NEGATIVE (NEGATIVE); COLOR, URINE YELLOW (YELLOW); GLUCOSE, URINE (UA) AUTO 3+ mg/dL (NEGATIVE); KETONE, URINE AUTO NEGATIVE (NEGATIVE); LEUKOCYTE ESTERASE, URINE AUTO NEGATIVE (NEGATIVE); NITRITE, URINE AUTO NEGATIVE (NEGATIVE); PROTEIN, URINE AUTO NEGATIVE (NEGATIVE); RBC, URINE AUTO 0 /HPF (0-3); SPECIFIC GRAVITY URINE AUTO 1.024 (1.002-1.035); SQUAMOUS EPITHELIAL CELL UR AU 0 /HPF (0-6); UROBILINOGEN, URINE AUTO 0.2 mg/dL (0.0-2.0); WBC, URINE AUTO 0 /HPF (0-3)
[2024-06-28 12:57] LABS: BASO % 0.3 % (0.0-1.0); EOS # 0.1 10^3/uL (0.0-0.5); EOS % 1.4 % (0.0-3.0); HEMATOCRIT 47.9 % (42.0-52.0); HEMOGLOBIN 15.6 g/dl (13.5-17.5); LYMPH # 1.9 10^3/uL (1.5-5.0); LYMPH % 19.1 % (24.0-44.0); MEAN CORPUSCULAR HEMOGLOBIN 29.3 pg (27.0-33.0); MEAN CORPUSCULAR HGB CONC 32.6 g/dl (32.0-36.5); MONO # 0.6 10^3/uL (0.0-0.8); MONO % 6.4 % (2.0-8.0); NEUTROPHILS # 7.1 10^3/uL (1.5-8.5); NEUTROPHILS % 72.4 % (36.0-66.0); PLATELET COUNT, AUTOMATED 215 10^3/uL (150-450); RED BLOOD COUNT 5.32 10^6/uL (4.30-6.10); WHITE BLOOD COUNT 9.8 10^3/uL (4.0-10.0)
[2024-06-28 13:25] LABS: ALKALINE PHOSPHATASE 139 U/L (40-129); ALT/SGPT 51 U/L (7.0-40); AST/SGOT 24 U/L (<34); BILIRUBIN,TOTAL 0.7 MG/DL (0.3-1.2); BLOOD UREA NITROGEN 15 MG/DL (9-23); CALCIUM LEVEL 9.5 MG/DL (8.3-10.6); CARBON DIOXIDE LEVEL 31 MMOL/L (20-31); CHLORIDE LEVEL 104 MMOL/L (98-107); CHOLESTEROL LEVEL 149 MG/DL (<200); CHOLESTEROL RISK RATIO 3.53 (<5); CREATININE FOR GFR 0.91 MG/DL (0.70-1.30); GLOMERULAR FILTRATION RATE > 90.0 (>49); GLUCOSE, FASTING 84 MG/DL (74-106); HDL CHOLESTEROL 42.2 MG/DL (>40); LDL CHOLESTEROL 84.4 MG/DL (<100); NON-HDL-C 106.8 MG/DL; POTASSIUM SERUM 4.2 MMOL/L (3.5-5.1); SODIUM LEVEL 142 MMOL/L (136-145); TRIGLYCERIDES LEVEL 112 MG/DL (<150)
[2024-06-28 13:27] LABS: TOTAL 25(OH) VITAMIN D 36.1 NG/ML (20.0-100.0)
[2024-06-28 13:36] LABS: HEMOGLOBIN A1c 5.6 % (4.0-6.0)
== END ==
LOC: M EKG 10:39
PROVIDERS: ATTEND Internal Medicine
DX: E11.65 Type 2 diabetes mellitus with hyperglycemia (principal); E55.9 Vitamin D deficiency, unspecified

== ENCOUNTER 2024-10-24 09:57 | Emergency (ER) | payer BC ==
[~2024-10-24] VITALS: Ht 177.8 cm; Wt 97.9 kg
[~2024-10-24 09:57] MED LIST changes: +CELE1CAP4 PO; -IBUP-1022 PO; +IBUP600T42 PO; +SEMA2PEN SQ
[2024-10-24] MEDS: NITROGLYCERIN 0.4 MG SUBL TABLET SL PRN (10:41)
[2024-10-24 10:42] LABS: BASO # 0.0 10^3/uL (0.0-0.2); BASO % 0.2 % (0.0-1.0); EOS # 0.0 10^3/uL (0.0-0.5); EOS % 0.3 % (0.0-3.0); LYMPH # 1.5 10^3/uL (1.5-5.0); LYMPH % 16.5 % (24.0-44.0); MONO # 0.8 10^3/uL (0.0-0.8); MONO % 8.0 % (2.0-8.0); NEUTROPHILS # 7.0 10^3/uL (1.5-8.5); NEUTROPHILS % 74.6 % (36.0-66.0); PLATELET COUNT, AUTOMATED 178 10^3/uL (150-450)
[2024-10-24] MEDS: ASPIRIN 81 MG CHEWABLE TABLET PO ONE (10:42)
[2024-10-24] MEDS: NS (Normal Saline) 0.9% 1,000 ML IV ONE (10:43)
[2024-10-24] MEDS ORDERED: ISOVUE-370 76% 100 ML VIAL As Ordered ONE (10:47)
[2024-10-24 11:00] LABS: INR 1.0
[2024-10-24 11:04] LABS: CK-MB VALUE MASS 24.3 NG/ML (<3.6)
[2024-10-24 11:06] LABS: ALT/SGPT 49.0 U/L (7.0-40); AST/SGOT 69.0 U/L (<34); CALCIUM LEVEL 8.2 MG/DL (8.3-10.6); CARBON DIOXIDE LEVEL 28.0 MMOL/L (20-31); CHLORIDE LEVEL 103.0 MMOL/L (98-107); CPK CREATINE PHOSPHOKINASE 706.0 U/L (46-171); CREATININE FOR GFR 0.99 MG/DL (0.70-1.30); GLOMERULAR FILTRATION RATE 85.6 (>49); MB/CK RELATIVE INDEX 3.44 (< OR =4); POTASSIUM SERUM 3.9 MMOL/L (3.5-5.1); SODIUM LEVEL 136.0 MMOL/L (136-145)
[2024-10-24 11:08] LABS: FREE T4 1.56 NG/DL (0.89-1.76)
[2024-10-24] MEDS: NITROGLYCERIN 2% OINT 1 GM *U/D* PKT TOP ONE (11:30)
[2024-10-24] MEDS: HEPARIN SOD 5000 UNITS/ML 1 ML VIAL/SYRINGE IV STA (11:45)
[2024-10-24] MEDS: HEPARIN DRIP 25,000 UNITS in IV 1 EA IV SCH (11:46)
[2024-10-24 11:56] LABS: CK-MB VALUE MASS 25.3 NG/ML (<3.6)
[2024-10-24 11:57] LABS: CPK CREATINE PHOSPHOKINASE 639.0 U/L (46-171); MB/CK RELATIVE INDEX 3.95 (< OR =4)
[2024-10-24] MEDS: NITROGLYCERIN/D5W 100MCG/ML 25 MG in IV 1 EA IV SCH (12:07)
[2024-10-24 12:12] VITALS: BP 118/75; TEMP 98.1; O2SAT 97
== END 2024-10-24 12:17 | disposition short-term general hospital (02) ==
LOC: M ED 09:57
DX: I21.4 Non-ST elevation (NSTEMI) myocardial infarction (principal); E11.9 Type 2 diabetes mellitus without complications; E78.5 Hyperlipidemia, unspecified; I10 Essential (primary) hypertension; F10.10 Alcohol abuse, uncomplicated; Z79.82 Long term (current) use of aspirin; Z79.02 Long term (current) use of antithrombotics/antiplatelets; Z79.899 Other long term (current) drug therapy
CPT/HCPCS: 71045; 71275; 80047; 80048; 80076; 82550; 82553; 83690; 83880; 84439; 84443; 84484; 85025; 85610; 85730; 87486; 87581; 87633; 87798; 93005; 93041; 94760; 96361; 96374; 96375; 99285; J2305; J3010; Q9967

== ENCOUNTER → 2024-12-16 | Outpatient (CLI) | payer BC ==
[2024-12-16 10:05] LABS: BASO # 0.0 10^3/uL (0.0-0.2); BASO % 0.3 % (0.0-1.0); EOS # 0.1 10^3/uL (0.0-0.5); EOS % 1.5 % (0.0-3.0); LYMPH # 1.9 10^3/uL (1.5-5.0); LYMPH % 25.0 % (24.0-44.0); MONO # 0.6 10^3/uL (0.0-0.8); MONO % 8.1 % (2.0-8.0); NEUTROPHILS # 4.8 10^3/uL (1.5-8.5); NEUTROPHILS % 64.8 % (36.0-66.0); PLATELET COUNT, AUTOMATED 166 10^3/uL (150-450)
[2024-12-16 10:11] LABS: APPEARANCE, URINE CLEAR (CLEAR); BACTERIA, URINE AUTO NEGATIVE (NEGATIVE); BILIRUBIN, URINE AUTO NEGATIVE (NEGATIVE); BLOOD, URINE BLOOD NEGATIVE (NEGATIVE); GLUCOSE, URINE (UA) AUTO 1+ mg/dL (NEGATIVE); KETONE, URINE AUTO NEGATIVE (NEGATIVE); LEUKOCYTE ESTERASE, URINE AUTO NEGATIVE (NEGATIVE); MUCUS, URINE SMALL (NEGATIVE); NITRITE, URINE AUTO NEGATIVE (NEGATIVE); PROTEIN, URINE AUTO NEGATIVE (NEGATIVE); RBC, URINE AUTO 0 /HPF (0-3); SPECIFIC GRAVITY URINE AUTO 1.026 (1.002-1.035); SQUAMOUS EPITHELIAL CELL UR AU 0 /HPF (0-6); UROBILINOGEN, URINE AUTO 0.2 mg/dL (0.0-2.0); WBC, URINE AUTO 0 /HPF (0-3)
[2024-12-16 10:14] LABS: ESTIMATED AVERAGE GLUCOSE 131.0 MG/DL (60-110)
[2024-12-16 10:32] LABS: ALT/SGPT 51 U/L (7.0-40); AST/SGOT 26 U/L (<34); CALCIUM LEVEL 8.5 MG/DL (8.3-10.6); CARBON DIOXIDE LEVEL 31 MMOL/L (20-31); CHLORIDE LEVEL 103 MMOL/L (98-107); CHOLESTEROL LEVEL 113 MG/DL (<200); CHOLESTEROL RISK RATIO 2.22 (<5); CREATININE FOR GFR 0.94 MG/DL (0.70-1.30); GLOMERULAR FILTRATION RATE > 90.0 (>49); LDL CHOLESTEROL 45.7 MG/DL (<100); NON-HDL-C 62.3 MG/DL; POTASSIUM SERUM 4.4 MMOL/L (3.5-5.1); SODIUM LEVEL 142 MMOL/L (136-145); TRIGLYCERIDES LEVEL 83 MG/DL (<150)
[2024-12-16 10:39] LABS: FREE T4 1.36 NG/DL (0.89-1.76)
== END ==
LOC: M LAB 09:09
PROVIDERS: ATTEND Internal Medicine
DX: E11.65 Type 2 diabetes mellitus with hyperglycemia (principal)